=== PATIENT | female | born 1955 | race Caucasian/White ===

== ENCOUNTER → 2019-06-06 12:57 | Outpatient (BNVA) | payer MEDICARE, MEDICAID, SELFPAY | PROVIDERS: Family Provider Family Medicine; PCP Family Medicine; Visit Provider Family Medicine | DX: E78.00 Pure hypercholesterolemia, unspecified (principal); I10 Essential (primary) hypertension; E11.42 Type 2 diabetes mellitus with diabetic polyneuropathy | CPT/HCPCS: 80053; 80061; 83036; 85025 ==

== ENCOUNTER → 2019-12-19 11:59 | Outpatient (BNVA) | payer MEDICARE, MEDICAID, SELFPAY | PROVIDERS: Family Provider Family Medicine; PCP Family Medicine; Visit Provider Family Medicine | DX: E78.2 Mixed hyperlipidemia (principal); I10 Essential (primary) hypertension; E03.9 Hypothyroidism, unspecified; E11.42 Type 2 diabetes mellitus with diabetic polyneuropathy; E78.00 Pure hypercholesterolemia, unspecified; I48.19 Other persistent atrial fibrillation | CPT/HCPCS: 80053; 80061; 83036; 84443; 85025 ==

== ENCOUNTER → 2020-03-31 15:11 | Outpatient (BNVA) | payer MEDICARE, MEDICAID, SELFPAY | PROVIDERS: Family Provider Family Medicine; PCP Family Medicine; Visit Provider Family Medicine | DX: E11.42 Type 2 diabetes mellitus with diabetic polyneuropathy (principal); E78.00 Pure hypercholesterolemia, unspecified; I10 Essential (primary) hypertension | CPT/HCPCS: 80048; 80061; 83036 ==

== ENCOUNTER 2020-06-07 17:19 | Inpatient (IN) | payer MEDICARE, MEDICAID, SELFPAY ==
[2020-06-07] VITALS (9 sets, daily range): BP systolic 85–131; BP diastolic 52–69; PULSE 92–131; RESP 18–33; TEMP 37.3; O2SAT 91–97; BMI 32.3
--- NOTE | 2020-06-07 18:04 | CTR_ITS ---
PROCEDURE INFORMATION: Exam: CT Abdomen And Pelvis Without Contrast Exam date and time: 06/07/2020 7:00 PM Age: 65 years old Clinical indication: Prior surgery; Surgery date: 6+ months; Surgery type: Appy, gb, tubal; Patient HX: C/O diarrhea and weakness x 2 weeks; Additional info: Abd pain TECHNIQUE: Imaging protocol: Computed tomography of the abdomen and pelvis without contrast. Radiation optimization: All CT scans at this facility use at least one of these dose optimization techniques: automated exposure control; mA and/or kV adjustment per patient size (includes targeted exams where dose is matched to clinical indication); or iterative reconstruction. COMPARISON: No relevant prior studies available. RADIATION DOSE METRICS: Total DLP (mGy-cm): 1726.35 FINDINGS: Lungs: Patchy nonspecific opacities in a small portion of the visualized lingula. Patchy ground-glass opacities of the right lower lobe just above the right diaphragm. Few small noncalcified pulmonary nodules in the right middle lobe and the right lower lobe. Largest nodule 7 mm diameter in the posterior right lower lobe on axial series 2, image 5. Liver: Normal. No mass. Gallbladder and bile ducts: Cholecystectomy. Nondilated biliary system. Pancreas: Normal. No ductal dilation. Spleen: Normal. No splenomegaly. Adrenal glands: Unremarkable right adrenal gland. Left adrenal gland mass with low attenuation noted homogeneous sleep with simple Hounsfield units throughout the lesion measuring 3.5 cm x 3.1 cm. Kidneys and ureters: Mild severity diffuse bilateral renal cortical atrophy. Small exophytic simple right renal lower pole cyst. No hydronephrosis. No acute perinephric inflammation. No calcified renal stones. Stomach and bowel: No focal inflammatory wall thickening of bowel loops. No evidence of bowel obstruction or bowel perforation. Negative for bowel pneumatosis. Appendix: No evidence of appendicitis. Intraperitoneal space: Negative for pneumoperitoneum. Vasculature: Diffuse atherosclerosis. No abdominal aortic aneurysm. Lymph nodes: Unremarkable. No enlarged lymph nodes. Urinary bladder: Bladder decompressed and not well assessed by this exam. Reproductive: Unremarkable as visualized. Bones/joints: Bones are diffusely demineralized. No acute fractures are identified. No aggressive bone lesion. Moderate severity leftward convex lumbar spine scoliosis. Soft tissues: No abdominopelvic fluid collection. Soft tissues of the abdominal wall are unremarkable. Lumbar paraspinal muscles are unremarkable. CT/CT abdomen pelvis wo con [id number] IMPRESSION: 1. Negative for acute pathology in the abdomen or pelvis. 2. Incidental left adrenal gland mass. 3. No follow-up is necessary. 4. Several small pulmonary nodules. 5. Patchy ground-glass opacities of the right lower lobe above the diaphragm as well as parenchymal opacities of the lingula are nonspecific. Pneumonia not excluded. 6. For patients at low risk (minimal or absent history of smoking and of other known risk factors), recommend CT Chest at 3-6 months, then consider CT Chest at 18-24 months. For patients at high risk (history of smoking or of other known risk factors), recommend CT Chest at 3-6 months, then CT Chest at 18-24 months. (Reference: Debra) COMMENTS: 1. Consistent with the [employer]'s Incidental Findings Committee white paper (J Am Debora Radiol 2017): For any incidental adrenal lesion greater than 1 cm but less than 4 cm classified in this report as benign, likely benign, or containing fat (including classification as an adenoma or myelolipoma), no follow-up imaging is recommended per consensus recommendations based on imaging criteria. Further lab evaluation could be pursued if warranted based on clinical findings. 2. Consistent with the [employer]'s Incidental Findings Committee white paper (J Am Debora Radiol 2018): Any incidental renal lesion less than 1 cm or classified as too small to characterize, or any incidental cystic renal lesion characterized as simple-appearing, is likely benign. No follow-up imaging is recommended for these lesions per consensus recommendations based on imaging criteria. REFERENCES: Debra Murguia, et al. Guidelines for Management of Incidental Pulmonary Nodules Detected on CT Images: From the Fleischner Society 2017. Radiology. 2017;284(1):228-243. Radiation Dose CTDIVOL = (mGy): DLP = 1726.35 (mGy-cm)
--- NOTE | 2020-06-07 18:06 | W.ED.WEAKNES ---
Documented by User: Eros Oglesby DO 06/13/20 09:52 HPI - Weakness General: Chief complaint: Weakness Stated complaint: WEAKNESS, FEELING DEHYDRATED Time Seen by Provider: 06/07/20 17:37 History of Present Illness: HPI Narrative: 65-year-old female presents to the ER with complaints of diarrhea for the last 2 weeks. No nausea vomiting. She denies any fever occasionally she has had some blood in the stool when she wipes but no gross hematochezia. She has previously had a cholecystectomy and appendectomy several decades ago. She also had a tubal ligation. MD Complaint: generalized weakness Onset (ago): day(s) Duration: constant Location: generalized Relieving factors: none Exacerbating factors: none Associated symptoms: Denies chest pain, chills, confusion, melena, decreased appetite, diaphoresis, dysuria, easy bruising, fever(s), headache(s), myalgias, nausea, rash, short of breath, syncope or vomiting Review of Systems Const: Denies: fever(s), chills or diaphoresis ENMT: Denies: throat pain, ear or mastoid pain, nasal discharge or nasal congestion Card: Denies: chest pain or syncope Resp: Denies: dyspnea, productive cough or non-productive cough GI: Denies: nausea, vomiting or melena : Denies: dysuria Skin/Breast: Denies: rash or pruritus Neuro: Denies: headache(s) or confusion Maycol/Lymph: Denies: easy bruising PFSH ED PFSH: Medical History Atrial fibrillation CHF (congestive heart failure) Pt is wanting to wait for the Stress test till the VIrus is gone! Diabetes 1.5, managed as type 2 GERD (gastroesophageal reflux disease) Hypercholesteremia Hypertension Hypothyroid Mixed hyperlipidemia Type 2 diabetes mellitus with diabetic polyneuropathy Surgical History Hx laparoscopic cholecystectomy Hx of appendectomy Hx of cholecystectomy Hx of tubal ligation Family History Denies family history of Diabetes CAD (coronary artery disease) Clotting disorder Dementia Hyperlipidemia Psychiatric illness Chronic kidney disease (CKD) Suicide Anesthesia complication Bleeding disorder Family history of premature coronary artery disease Lung disease Cancer Hypertension Stroke Social History Smoking and tobacco status: current every day smoker cigarettes Alcohol intake: never Physical Exam Const: COMMON NORMALS: no acute distress GENERAL APPEARANCE: cooperative and comfortable ORIENTATION/CONSCIOUSNESS: Yes awake, Yes oriented to person, Yes oriented to place and Yes oriented to time HENMT: COMMON NORMALS: normocephalic, atraumatic and hearing grossly normal bilaterally HEAD & SCALP: normocephalic and atraumatic Neck/C-Spine: COMMON NORMALS: no JVD Resp: COMMON NORMALS: normal respiratory effort, No retractions, No use of accessory muscles and clear to auscultation bilaterally AUSCULTATION: clear to auscultation bilaterally Cardio: COMMON NORMALS: no JVD, regular rate, regular rhythm and No murmurs present (Cardio) RATE: regular rate RHYTHM: regular rhythm GI: COMMON NORMALS: Soft to palpation and No hepatosplenomegaly present AUSCULTATION: Yes normoactive bowel sounds PALPATION: Yes Soft to palpation, No Tenderness to palpation present (GI), No Guarding due to palpation present (GI) and Yes No hepatosplenomegaly present Extremity: COMMON NORMALS: normal to inspection, capillary refill normal, no clubbing, cyanosis or edema, no calf tenderness and no pedal edema Neuro: SENSORIUM/ORIENTATION: Yes oriented to person, Yes oriented to place and Yes oriented to time Skin: COMMON NORMALS: no rashes or lesions noted GENERAL SKIN EXAM: no rashes or lesions noted Course Vital Signs: Vital signs: Vital Signs Temperature 97.8 F 06/11/20 15:39 Pulse Rate 90 06/11/20 15:39 Respiratory Rate 32 H 06/11/20 15:39 Blood Pressure 100/78 06/11/20 21:51 Pulse Oximetry 95 06/11/20 21:51 MDM - Weakness MDM Narrative: Medical decision making narrative: Care turned over to Dr. Hough at change of shift see his notes for final diagnosis and disposition Lab Data: Labs: Lab Results 06/07/20 06/07/20 06/07/20 Range/Units 18:13 18:24 18:24 WBC 7.2 (4.0-10.0) 10^3/ uL RBC 5.00 (4.1-5.3) 10^6/u L Hgb 15.2 (11.5-15.3) g/dL Hct 47.6 H (37.0-47.0) % MCV 95.2 (81-99) fL MCH 30.4 (28.0-34.0) pg MCHC 31.9 (30.0-36.0) g/dL RDW 13.2 (12.1-15.1) % Plt Count 244 (130-400) 10^3/c mm MPV 9.8 (7.4-10.4) fL Neut % (Auto) 69.7 % Lymph % (Auto) 21.5 % [place] % (Auto) 8.6 % Eos % (Auto) 0.0 % Baso % (Auto) 0.1 % Neut # (Auto) 5.02 (1.8-7.7) 10^3/u L Lymph # (Auto) 1.6 (0.8-4.8) 10^3/u L [place] # (Auto) 0.6 (0.2-0.9) 10^3/u L Eos # (Auto) 0.0 (0.0-0.8) 10^3/u L Baso # (Auto) 0.0 (0.0-0.1) 10^3/u L Nucleated RBC % (a uto) 0 % Nucleated RBCs # 0.0 /100WBC Sodium (136-145) mmol/L Potassium (3.5-5.1) mmol/L Chloride (98-107) mmol/L Carbon Dioxide (22-29) mmol/L Anion Gap (5-19) BUN (8-23) mg/dL Creatinine (0.5-0.9) mg/dL GFR Calculation (90-130) mL/min Glucose (65-115) mg/dL Calculated Osmolal ity (285-295) mOsm/k g Lactic Acid 1.8 (0.5-2.2) mmol/L Calcium (8.5-10.5) mg/dL Magnesium (1.7-2.3) mg/dL Total Bilirubin (0.15-1.2) mg/dL AST (0-32) U/L ALT (0-33) U/L Alkaline Phosphata se (35-105) IU/L Creatine Kinase (26-192) U/L Total Protein (6.6-8.7) g/dL Albumin (3.5-5.2) g/dL Globulin (1.3-4.6) g/dL Lipase (13-60) U/L Procalcitonin (0-0.5) ng/mL TSH (0.27-4.20) uIU/ mL Urine Color Yellow (Yellow) Urine Appearance Clear (CLEAR) Urine pH 5 (5-7) Ur Specific Gravit y 1.010 (1.005-1.030) Urine Protein Neg (Negative) Urine Glucose (UA) Norm (Normal) Urine Ketones Negative (Negative) Urine Blood 2+ H (Negative) Urine Nitrate Negative (Negative) Urine Bilirubin Neg (Negative) Urine Urobilinogen Norm (Negative) mg/dL Ur Leukocyte [place] ase Trace H (Negative) Urine RBC 0-4 H (0-2) /hpf Urine WBC 0-4 H (0-5) /hpf Ur Squamous Epith Cells 0-4 H (0-5) /hpf Amorphous Sediment Not Reportable Urine Bacteria Trace (NONE) /hpf Hyaline Casts 0-4 H /lpf SARS-CoV-2 Ag (Rap id) (Negative) 06/07/20 06/07/20 06/07/20 Range/Units 18:24 18:26 18:34 WBC (4.0-10.0) 10^3/ uL RBC (4.1-5.3) 10^6/u L Hgb (11.5-15.3) g/dL Hct (37.0-47.0) % MCV (81-99) fL MCH (28.0-34.0) pg MCHC (30.0-36.0) g/dL RDW (12.1-15.1) % Plt Count (130-400) 10^3/c mm MPV (7.4-10.4) fL Neut % (Auto) % Lymph % (Auto) % [place] % (Auto) % Eos % (Auto) % Baso % (Auto) % Neut # (Auto) (1.8-7.7) 10^3/u L Lymph # (Auto) (0.8-4.8) 10^3/u L [place] # (Auto) (0.2-0.9) 10^3/u L Eos # (Auto) (0.0-0.8) 10^3/u L Baso # (Auto) (0.0-0.1) 10^3/u L Nucleated RBC % (a uto) % Nucleated RBCs # /100WBC Sodium 131 L (136-145) mmol/L Potassium 3.1 L (3.5-5.1) mmol/L Chloride 93 L (98-107) mmol/L Carbon Dioxide 25 (22-29) mmol/L Anion Gap 16.1 (5-19) BUN 22 (8-23) mg/dL Creatinine 1.9 H (0.5-0.9) mg/dL GFR Calculation 26.4 L (90-130) mL/min Glucose 97 (65-115) mg/dL Calculated Osmolal ity 275 L (285-295) mOsm/k g Lactic Acid (0.5-2.2) mmol/L Calcium 8.7 (8.5-10.5) mg/dL Magnesium 1.6 L 1.7 (1.7-2.3) mg/dL Total Bilirubin 0.5 (0.15-1.2) mg/dL AST 25 (0-32) U/L ALT 11 (0-33) U/L Alkaline Phosphata se 72 (35-105) IU/L Creatine Kinase 177 (26-192) U/L Total Protein 7.3 (6.6-8.7) g/dL Albumin 4.0 (3.5-5.2) g/dL Globulin 3.3 (1.3-4.6) g/dL Lipase 73 H (13-60) U/L Procalcitonin 0.17 (0-0.5) ng/mL TSH 2.22 2.26 (0.27-4.20) uIU/ mL Urine Color (Yellow) Urine Appearance (CLEAR) Urine pH (5-7) Ur Specific Gravit y (1.005-1.030) Urine Protein (Negative) Urine Glucose (UA) (Normal) Urine Ketones (Negative) Urine Blood (Negative) Urine Nitrate (Negative) Urine Bilirubin (Negative) Urine Urobilinogen (Negative) mg/dL Ur Leukocyte [place] ase (Negative) Urine RBC (0-2) /hpf Urine WBC (0-5) /hpf Ur Squamous Epith Cells (0-5) /hpf Amorphous Sediment Urine Bacteria (NONE) /hpf Hyaline Casts /lpf SARS-CoV-2 Ag (Rap id) (Negative) 06/07/20 Range/Units 20:35 WBC (4.0-10.0) 10^3/ uL RBC (4.1-5.3) 10^6/u L Hgb (11.5-15.3) g/dL Hct (37.0-47.0) % MCV (81-99) fL MCH (28.0-34.0) pg MCHC (30.0-36.0) g/dL RDW (12.1-15.1) % Plt Count (130-400) 10^3/c mm MPV (7.4-10.4) fL Neut % (Auto) % Lymph % (Auto) % [place] % (Auto) % Eos % (Auto) % Baso % (Auto) % Neut # (Auto) (1.8-7.7) 10^3/u L Lymph # (Auto) (0.8-4.8) 10^3/u L [place] # (Auto) (0.2-0.9) 10^3/u L Eos # (Auto) (0.0-0.8) 10^3/u L Baso # (Auto) (0.0-0.1) 10^3/u L Nucleated RBC % (a uto) % Nucleated RBCs # /100WBC Sodium (136-145) mmol/L Potassium (3.5-5.1) mmol/L Chloride (98-107) mmol/L Carbon Dioxide (22-29) mmol/L Anion Gap (5-19) BUN (8-23) mg/dL Creatinine (0.5-0.9) mg/dL GFR Calculation (90-130) mL/min Glucose (65-115) mg/dL Calculated Osmolal ity (285-295) mOsm/k g Lactic Acid (0.5-2.2) mmol/L Calcium (8.5-10.5) mg/dL Magnesium (1.7-2.3) mg/dL Total Bilirubin (0.15-1.2) mg/dL AST (0-32) U/L ALT (0-33) U/L Alkaline Phosphata se (35-105) IU/L Creatine Kinase (26-192) U/L Total Protein (6.6-8.7) g/dL Albumin (3.5-5.2) g/dL Globulin (1.3-4.6) g/dL Lipase (13-60) U/L Procalcitonin (0-0.5) ng/mL TSH (0.27-4.20) uIU/ mL Urine Color (Yellow) Urine Appearance (CLEAR) Urine pH (5-7) Ur Specific Gravit y (1.005-1.030) Urine Protein (Negative) Urine Glucose (UA) (Normal) Urine Ketones (Negative) Urine Blood (Negative) Urine Nitrate (Negative) Urine Bilirubin (Negative) Urine Urobilinogen (Negative) mg/dL Ur Leukocyte [place] ase (Negative) Urine RBC (0-2) /hpf Urine WBC (0-5) /hpf Ur Squamous Epith Cells (0-5) /hpf Amorphous Sediment Urine Bacteria (NONE) /hpf Hyaline Casts /lpf SARS-CoV-2 Ag (Rap id) Positive H (Negative) Discharge Plan Discharge Patient Disposition: Admitted As Inpatient Admit Provider: Baldemar Field Clinical Impression: Atrial fibrillation Respiratory failure with hypoxia Qualifiers: Chronicity: acute Qualified Code(s): J96.01 - Acute respiratory failure with hypoxia Condition: Stable Discharge Diet: Advance as tolerated Discharge Activity: Increase activity as tolerated Coding Level of Care Code ED Oil Lease Operator for Chg Fwd Documented by User: Thomas Hough DO 06/08/20 02:08 HPI - Weakness General: Chief complaint: Weakness Stated complaint: WEAKNESS, FEELING DEHYDRATED Time Seen by Provider: 06/07/20 17:37 PFSH ED PFSH: Medical History Atrial fibrillation CHF (congestive heart failure) Pt is wanting to wait for the Stress test till the VIrus is gone! Diabetes 1.5, managed as type 2 GERD (gastroesophageal reflux disease) Hypercholesteremia Hypertension Hypothyroid Mixed hyperlipidemia Type 2 diabetes mellitus with diabetic polyneuropathy Surgical History Hx laparoscopic cholecystectomy Hx of appendectomy Hx of cholecystectomy Hx of tubal ligation Family History Denies family history of Diabetes CAD (coronary artery disease) Clotting disorder Dementia Hyperlipidemia Psychiatric illness Chronic kidney disease (CKD) Suicide Anesthesia complication Bleeding disorder Family history of premature coronary artery disease Lung disease Cancer Hypertension Stroke Social History Smoking and tobacco status: current every day smoker cigarettes Alcohol intake: never Course Consultations: Consultation #1: [email or web address] Vital Signs: Vital signs: Vital Signs Temperature 97.8 F 06/11/20 15:39 Pulse Rate 90 06/11/20 15:39 Respiratory Rate 32 H 06/11/20 15:39 Blood Pressure 100/78 06/11/20 21:51 Pulse Oximetry 95 06/11/20 21:51 MDM - Weakness MDM Narrative: Medical decision making narrative: 65-year-old female with a history of atrial fibrillation. She presents after several days of vomiting and diarrhea with fevers. She did not complain of shortness of breath, but she is hypoxic here and placed on a couple of liters. Her heart rate had initially been around 100, but was getting up, she desaturates and the heart rate comes up in the 130s. She is on metoprolol for rate control. She is given 2.5 mg of metoprolol, some fluid, and oxygen supplementation. CT does not show anything in the belly, but does show bilateral groundglass infiltrates, suspicious for Covid in terms of her symptoms. She will he is tested here, and rapid is pending. She will be admitted. Lab Data: Labs: Lab Results 06/07/20 06/07/20 06/07/20 Range/Units 18:13 18:24 18:24 WBC 7.2 (4.0-10.0) 10^3/ uL RBC 5.00 (4.1-5.3) 10^6/u L Hgb 15.2 (11.5-15.3) g/dL Hct 47.6 H (37.0-47.0) % MCV 95.2 (81-99) fL MCH 30.4 (28.0-34.0) pg MCHC 31.9 (30.0-36.0) g/dL RDW 13.2 (12.1-15.1) % Plt Count 244 (130-400) 10^3/c mm MPV 9.8 (7.4-10.4) fL Neut % (Auto) 69.7 % Lymph % (Auto) 21.5 % [place] % (Auto) 8.6 % Eos % (Auto) 0.0 % Baso % (Auto) 0.1 % Neut # (Auto) 5.02 (1.8-7.7) 10^3/u L Lymph # (Auto) 1.6 (0.8-4.8) 10^3/u L [place] # (Auto) 0.6 (0.2-0.9) 10^3/u L Eos # (Auto) 0.0 (0.0-0.8) 10^3/u L Baso # (Auto) 0.0 (0.0-0.1) 10^3/u L Nucleated RBC % (a uto) 0 % Nucleated RBCs # 0.0 /100WBC Sodium (136-145) mmol/L Potassium (3.5-5.1) mmol/L Chloride (98-107) mmol/L Carbon Dioxide (22-29) mmol/L Anion Gap (5-19) BUN (8-23) mg/dL Creatinine (0.5-0.9) mg/dL GFR Calculation (90-130) mL/min Glucose (65-115) mg/dL Calculated Osmolal ity (285-295) mOsm/k g Lactic Acid 1.8 (0.5-2.2) mmol/L Calcium (8.5-10.5) mg/dL Magnesium (1.7-2.3) mg/dL Total Bilirubin (0.15-1.2) mg/dL AST (0-32) U/L ALT (0-33) U/L Alkaline Phosphata se (35-105) IU/L Creatine Kinase (26-192) U/L Total Protein (6.6-8.7) g/dL Albumin (3.5-5.2) g/dL Globulin (1.3-4.6) g/dL Lipase (13-60) U/L Procalcitonin (0-0.5) ng/mL TSH (0.27-4.20) uIU/ mL Urine Color Yellow (Yellow) Urine Appearance Clear (CLEAR) Urine pH 5 (5-7) Ur Specific Gravit y 1.010 (1.005-1.030) Urine Protein Neg (Negative) Urine Glucose (UA) Norm (Normal) Urine Ketones Negative (Negative) Urine Blood 2+ H (Negative) Urine Nitrate Negative (Negative) Urine Bilirubin Neg (Negative) Urine Urobilinogen Norm (Negative) mg/dL Ur Leukocyte [place] ase Trace H (Negative) Urine RBC 0-4 H (0-2) /hpf Urine WBC 0-4 H (0-5) /hpf Ur Squamous Epith Cells 0-4 H (0-5) /hpf Amorphous Sediment Not Reportable Urine Bacteria Trace (NONE) /hpf Hyaline Casts 0-4 H /lpf SARS-CoV-2 Ag (Rap id) (Negative) 06/07/20 06/07/20 06/07/20 Range/Units 18:24 18:26 18:34 WBC (4.0-10.0) 10^3/ uL RBC (4.1-5.3) 10^6/u L Hgb (11.5-15.3) g/dL Hct (37.0-47.0) % MCV (81-99) fL MCH (28.0-34.0) pg MCHC (30.0-36.0) g/dL RDW (12.1-15.1) % Plt Count (130-400) 10^3/c mm MPV (7.4-10.4) fL Neut % (Auto) % Lymph % (Auto) % [place] % (Auto) % Eos % (Auto) % Baso % (Auto) % Neut # (Auto) (1.8-7.7) 10^3/u L Lymph # (Auto) (0.8-4.8) 10^3/u L [place] # (Auto) (0.2-0.9) 10^3/u L Eos # (Auto) (0.0-0.8) 10^3/u L Baso # (Auto) (0.0-0.1) 10^3/u L Nucleated RBC % (a uto) % Nucleated RBCs # /100WBC Sodium 131 L (136-145) mmol/L Potassium 3.1 L (3.5-5.1) mmol/L Chloride 93 L (98-107) mmol/L Carbon Dioxide 25 (22-29) mmol/L Anion Gap 16.1 (5-19) BUN 22 (8-23) mg/dL Creatinine 1.9 H (0.5-0.9) mg/dL GFR Calculation 26.4 L (90-130) mL/min Glucose 97 (65-115) mg/dL Calculated Osmolal ity 275 L (285-295) mOsm/k g Lactic Acid (0.5-2.2) mmol/L Calcium 8.7 (8.5-10.5) mg/dL Magnesium 1.6 L 1.7 (1.7-2.3) mg/dL Total Bilirubin 0.5 (0.15-1.2) mg/dL AST 25 (0-32) U/L ALT 11 (0-33) U/L Alkaline Phosphata se 72 (35-105) IU/L Creatine Kinase 177 (26-192) U/L Total Protein 7.3 (6.6-8.7) g/dL Albumin 4.0 (3.5-5.2) g/dL Globulin 3.3 (1.3-4.6) g/dL Lipase 73 H (13-60) U/L Procalcitonin 0.17 (0-0.5) ng/mL TSH 2.22 2.26 (0.27-4.20) uIU/ mL Urine Color (Yellow) Urine Appearance (CLEAR) Urine pH (5-7) Ur Specific Gravit y (1.005-1.030) Urine Protein (Negative) Urine Glucose (UA) (Normal) Urine Ketones (Negative) Urine Blood (Negative) Urine Nitrate (Negative) Urine Bilirubin (Negative) Urine Urobilinogen (Negative) mg/dL Ur Leukocyte [place] ase (Negative) Urine RBC (0-2) /hpf Urine WBC (0-5) /hpf Ur Squamous Epith Cells (0-5) /hpf Amorphous Sediment Urine Bacteria (NONE) /hpf Hyaline Casts /lpf SARS-CoV-2 Ag (Rap id) (Negative) 06/07/20 Range/Units 20:35 WBC (4.0-10.0) 10^3/ uL RBC (4.1-5.3) 10^6/u L Hgb (11.5-15.3) g/dL Hct (37.0-47.0) % MCV (81-99) fL MCH (28.0-34.0) pg MCHC (30.0-36.0) g/dL RDW (12.1-15.1) % Plt Count (130-400) 10^3/c mm MPV (7.4-10.4) fL Neut % (Auto) % Lymph % (Auto) % [place] % (Auto) % Eos % (Auto) % Baso % (Auto) % Neut # (Auto) (1.8-7.7) 10^3/u L Lymph # (Auto) (0.8-4.8) 10^3/u L [place] # (Auto) (0.2-0.9) 10^3/u L Eos # (Auto) (0.0-0.8) 10^3/u L Baso # (Auto) (0.0-0.1) 10^3/u L Nucleated RBC % (a uto) % Nucleated RBCs # /100WBC Sodium (136-145) mmol/L Potassium (3.5-5.1) mmol/L Chloride (98-107) mmol/L Carbon Dioxide (22-29) mmol/L Anion Gap (5-19) BUN (8-23) mg/dL Creatinine (0.5-0.9) mg/dL GFR Calculation (90-130) mL/min Glucose (65-115) mg/dL Calculated Osmolal ity (285-295) mOsm/k g Lactic Acid (0.5-2.2) mmol/L Calcium (8.5-10.5) mg/dL Magnesium (1.7-2.3) mg/dL Total Bilirubin (0.15-1.2) mg/dL AST (0-32) U/L ALT (0-33) U/L Alkaline Phosphata se (35-105) IU/L Creatine Kinase (26-192) U/L Total Protein (6.6-8.7) g/dL Albumin (3.5-5.2) g/dL Globulin (1.3-4.6) g/dL Lipase (13-60) U/L Procalcitonin (0-0.5) ng/mL TSH (0.27-4.20) uIU/ mL Urine Color (Yellow) Urine Appearance (CLEAR) Urine pH (5-7) Ur Specific Gravit y (1.005-1.030) Urine Protein (Negative) Urine Glucose (UA) (Normal) Urine Ketones (Negative) Urine Blood (Negative) Urine Nitrate (Negative) Urine Bilirubin (Negative) Urine Urobilinogen (Negative) mg/dL Ur Leukocyte [place] ase (Negative) Urine RBC (0-2) /hpf Urine WBC (0-5) /hpf Ur Squamous Epith Cells (0-5) /hpf Amorphous Sediment Urine Bacteria (NONE) /hpf Hyaline Casts /lpf SARS-CoV-2 Ag (Rap id) Positive H (Negative) Discharge Plan Discharge Patient Disposition: Admitted As Inpatient Admit Provider: Baldemar Field Clinical Impression: Atrial fibrillation Respiratory failure with hypoxia Qualifiers: Chronicity: acute Qualified Code(s): J96.01 - Acute respiratory failure with hypoxia Condition: Stable Discharge Diet: Advance as tolerated Discharge Activity: Increase activity as tolerated Coding Level of Care Code ED Oil Lease Operator for Irving Rosario
[2020-06-07 18:31] LABS: Basophils % 0.1 %; Hematocrit 47.6 % (37.0-47.0); Hemoglobin 15.2 g/dL (11.5-15.3); Lymphocytes # 1.6 10^3/uL (0.8-4.8); Lymphocytes % 21.5 %; Mean Corpuscular HGB Conc 31.9 g/dL (30.0-36.0); Mean Corpuscular Hemoglobin 30.4 pg (28.0-34.0); Mean Corpuscular Volume 95.2 fL (81-99); Mean Platelet Volume 9.8 fL (7.4-10.4); Monocytes # 0.6 10^3/uL (0.2-0.9); Monocytes % 8.6 %; Neutrophils # 5.02 10^3/uL (1.8-7.7); Neutrophils % 69.7 %; Nucleated Red Blood Cells % 0 %; Platelet Count 244 10^3/cmm (130-400); Red Cell Distribution Width 13.2 % (12.1-15.1); White Blood Count 7.2 10^3/uL (4.0-10.0)
[2020-06-07] MEDS: ondansetron 2 mg/ML SDV 2 mL 4 MG IVP (18:46)
[2020-06-07] MEDS: sodium chloride 0.9% 1,000 ML 999 ML IV (18:46)
[2020-06-07 18:54] LABS: Alanine Aminotransferase 11 U/L (0-33); Alkaline Phosphatase 72 IU/L (35-105); Anion Gap 16.1 (5-19); Aspartate Amino Transferase 25 U/L (0-32); Blood Urea Nitrogen 22 mg/dL (8-23); Calcium 8.7 mg/dL (8.5-10.5); Carbon Dioxide 25 mmol/L (22-29); Chloride 93 mmol/L (98-107); Creatine Phosphokinase 177 U/L (26-192); Globulin 3.3 g/dL (1.3-4.6); Glomerular Filtration Rate 26.4 mL/min (90-130); Glucose 97 mg/dL (65-115); Lactic Sepsis W/Reflex 1.8 mmol/L (0.5-2.2); Lipase 73 U/L (13-60); Magnesium 1.6 mg/dL (1.7-2.3); Osmolality Calculated 275 mOsm/kg (285-295); Potassium 3.1 mmol/L (3.5-5.1); Sodium 131 mmol/L (136-145); Total Bilirubin 0.5 mg/dL (0.15-1.2); Total Protein 7.3 g/dL (6.6-8.7)
[2020-06-07 19:31] LABS: Bilirubin Urine Neg (Negative); Glucose Urine UA Norm (Normal); Ketones Urine Negative (Negative); Nitrate Urine Negative (Negative); Protein Urine Neg (Negative); Urine Appearance Clear (CLEAR); Urine Color Yellow (Yellow); Urobilinogen Urine Norm (Negative); pH Urine 5 (5-7)
[2020-06-07 19:32] LABS: Add Urine Culture? No; Add Urine Microscopic? YES; Bacteria Urine TRACE /hpf; Blood Urine 2+ (Negative); Hyaline Casts Urine 0-4 /lpf; Leukocyte Esterase Urine Trace (Negative); RBC Urine 0-4 /hpf (0-2); Squamous Epithelial Cell Urine 0-4 /hpf (0-5); WBC Urine 0-4 /hpf (0-5)
[2020-06-07] MEDS: potassium chloride oral liq 20 mEq/15 mL UDC 40 MEQ PO (19:36)
[2020-06-07] MEDS: sodium chlor 0.9% + KCl 20 mEq 20 MEQ/1,000 ML BAG 250 MEQ IV (19:37)
--- NOTE | 2020-06-07 20:45 | ECG_ITS ---
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 Measurements Intervals Christopher Rate: 124 P: VA: QRS: 87 QRSD: 90 T: -32 QT: 288 QTc: 414 Interpretive Statements ATRIAL FIBRILLATION WITH RAPID VENTRICULAR RESPONSE NONSPECIFIC ST & T-WAVE ABNORMALITY Compared to ECG 04/27/2015 05:36:14 T-wave abnormality now present Electronically Signed On 06-08-2020 17:02:11 OIL DISPATCHER by Khris Armas M.D. [email or web address]
--- NOTE | 2020-06-07 20:52 | PM.HP ---
Providers/Chief Complaint Primary Care Provider: Anna Kaufman MD Chief Complaint: WEAKNESS, FEELING DEHYDRATED History of Present Illness Mavis Joseph is a 65 year old female who has history of atrial fibrillation chronic anticoagulation with rivaroxaban, presented today with chief complaint of worsening diarrhea. Patient is stating that her symptoms started about 2 weeks ago with abdominal pain and diarrhea, she did not denies any emesis or nausea but her diarrhea has been getting worse today because of worsening and extreme lethargy she decided to come to the hospital for further evaluation. On arrival she was mildly hypoxic around 90, she was started on 2 L nasal cannula, heart rate 132 A. fib RVR, abdomen pelvis CT scan unremarkable, groundglass opacities seen, Covid antigen positive, hypokalemia and hypomagnesemia noted. Potassium was repleted in the ER. Patient is denying chest pain, orthopnea, PND, fever. Her only complaint was abdominal pain for which she decided to come to the hospital. No one else is sick at home. She is a former smoker. She is compliant with her medications. At the time my evaluation she was saturating well on 2 L without any active chest pain. Review of Systems Const: Reports: chills, body aches, fatigue and malaise; Denies: fever(s) Eyes: Denies: change in vision ENMT: Denies: throat pain Card: Denies: chest pain Resp: Reports: dyspnea GI: Reports: abdominal pain and diarrhea; Denies: nausea : Denies: flank pain Musc: Denies: neck pain Skin/Breast: Denies: rash Neuro: Denies: headache(s) Psych: Denies: anxiety Endo: Denies: polyuria Maycol/Lymph: Denies: easy bruising All/Imm: Denies: urticaria Medications/Allergies Home Medications Medication Instructions Recorded Confirmed Last Taken Type Diabetic Shoes #1 each 05/29/19 06/07/20 Unknown Rx potassium chloride 20 mEq 20 meq PO BID@0800,199905/29/19 06/07/20 06/07/20 History tablet,extended release metoprolol tartrate 50 mg tablet 25 mg PO BID@0800,1999 tab 01/01/20 06/07/20 06/07/20 History furosemide 60 mg PO BID@0800,199906/07/20 06/07/20 06/07/20 History levothyroxine 50 mcg PO DAILY@0800 06/07/20 06/07/20 06/07/20 History lisinopril 5 mg PO DAILY@0800 06/07/20 06/07/20 06/07/20 History metformin 500 mg PO BID@0800,199906/07/20 06/07/20 06/07/20 History rivaroxaban 20 mg PO DAILY@0800 06/07/20 06/07/20 06/07/20 History Allergies Allergy/AdvReac Type Severity Reaction Status Date / Time aspirin Allergy nausea Verified 04/08/20 09:40 influenza A (H1N1) virus Allergy unknown Verified 04/08/20 09:40 vaccine [id number] 2008 [From influenza A (H1N1)] PFSH Acute PFSH: Medical History (Updated 06/07/20 @ 23:25 by Baldemar Field MD) Atrial fibrillation CHF (congestive heart failure) Pt is wanting to wait for the Stress test till the VIrus is gone! Diabetes 1.5, managed as type 2 GERD (gastroesophageal reflux disease) Hypercholesteremia Hypertension Hypothyroid Mixed hyperlipidemia Type 2 diabetes mellitus with diabetic polyneuropathy Surgical History Hx laparoscopic cholecystectomy Hx of appendectomy Hx of cholecystectomy Hx of tubal ligation Family History Denies family history of Diabetes CAD (coronary artery disease) Clotting disorder Dementia Hyperlipidemia Psychiatric illness Chronic kidney disease (CKD) Suicide Anesthesia complication Bleeding disorder Family history of premature coronary artery disease Lung disease Cancer Hypertension Stroke Social History Smoking and tobacco status: current every day smoker cigarettes Alcohol intake: never Vitals/I&O/Wt Last Vital Signs Temp 99.1 F 06/07/20 17:27 Pulse 129 H 06/07/20 20:35 Resp 33 H 06/07/20 20:35 BP 100/60 06/07/20 20:35 Pulse Ox 97 06/07/20 20:35 Weight last 48 hrs Weight 90.718 kg Physical Exam Narrative: EXAM NARRATIVE: Middle-age female currently saturating well on 2 L nasal cannula, appears stated age No active signs of dehydration or fluid overload No active chest pain S1, S2 variable no murmur appreciated no signs of heart failure Abdomen soft nontender bowel sound present Lower symmetry no edema gangrene ulcer Bilateral breath sounds without adventitious rhonchi or crackles Appropriate mood and affect EOMI, PERRLA No neurological deficit Data : 06/07/20 18:24 06/07/20 18:24 A&P Assessment and plan (1) Respiratory failure with hypoxia: Acute hypoxic respiratory failure secondary to COVID-19 pneumonia Request D-dimer, inflammatory markers Currently doing well on 2 L nasal cannula Start remdesivir and Decadron, clinical trial has not supported use of vitamin C zinc or vitamin D, would not initiate multivitamins at this point DuoNebs every 4 Home O2 evaluation before discharge Requested procalcitonin level Status: Acute Qualifiers: Chronicity: acute Qualified Code(s): J96.01 - Acute respiratory failure with hypoxia (2) COVID-19 determined by clinical diagnostic criteria: Management as mentioned above Status: Acute (3) Hypokalemia: Potassium repleted Status: Acute (4) Hypomagnesemia: Magnesium repleted Status: Acute (5) Paroxysmal A-fib: Paroxysmal A. fib, Would use Cardizem for blood pressure allows, continue rivaroxaban This most likely secondary to COVID-19 pneumonia which triggered A. fib with acute RVR no active chest pain or severe shortness of breath Check TSH, magnesium and potassium abnormality noted Status: Acute Additional A&P Information Cardiac diet DVT prophylaxis not indicated currently on Lovenox again Full code Attestations Medical Necessity Statement*: Anticipating stay in the hospital cross more than 2 midnights for acute hypoxia for COVID-19 A. fib with acute RVR Time Spent in Patient Care: (>than 50% of time spent in counselling and/or direct pt care on unit). 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
[2020-06-07] MEDS: metoprolol tartrate 1 mg/1 mL SDV 5 mL 2.5 MG IV (20:55)
[2020-06-07] MEDS: potassium chloride ER 20 mEq Tablet 40 MEQ PO (21:05)
[2020-06-07 21:15] LABS: SARS Covid-2 Antigen Positive (Negative)
[2020-06-07 21:24] LABS: Magnesium 1.7 mg/dL (1.7-2.3); Thyroid Stimulating Hormone 2.22 uIU/mL (0.27-4.20)
--- NOTE | 2020-06-07 23:14 | PC.NURSE ---
Report called to Lindsey CALDWELL on CSU unit
[2020-06-07 23:53] LABS: Glucose Point of Care 113 mg/dL (70-110)
[2020-06-08] VITALS (29 sets, daily range): BP systolic 76–144; BP diastolic 49–106; PULSE 66–120; RESP 14–28; TEMP 36.2–38.7; O2SAT 83–96
[2020-06-08 00:40] LABS: Procalcitonin 0.17 ng/mL (0-0.5); Thyroid Stimulating Hormone 2.26 uIU/mL (0.27-4.20)
[2020-06-08] MEDS: remdesivir 200 MG in sodium chloride 0.9% (100 ml) 100 ML 100 MG IV (00:56)
[2020-06-08] MEDS: sodium chloride 0.9% 250 ML IV (00:56)
--- NOTE | 2020-06-08 02:06 | PC.NURSE ---
Remdesivir complete. Flushed IV line with 30ml of normal saline.
[2020-06-08 05:22] LABS: D Dimer 1.96 ug/mIFEU (0-0.59)
[2020-06-08 05:33] LABS: Lactate Dehydrogenase 239 U/L (135-214)
[2020-06-08 06:41] LABS: Glucose Point of Care 103 mg/dL (70-110)
[2020-06-08] MEDS: rivaroxaban 10 mg Tablet 20 MG PO (07:59)
[2020-06-08] MEDS: potassium chloride ER 20 mEq Tablet PO ×2 (07:59→20:09)
[2020-06-08] MEDS: levothyroxine 50 mcg Tablet PO (07:59)
[2020-06-08] MEDS: metoprolol tartrate 50 mg Tablet 25 MG PO ×2 (07:59→20:09)
[2020-06-08] MEDS: dexamethasone 4 mg Tablet 6 MG PO (09:04)
[2020-06-08] MEDS: cholecalciferol (vitamin D3) 5,000 unit Tablet 5000 UNIT PO (09:04)
[2020-06-08] MEDS: zinc gluconate 50 mg Tablet PO (09:04)
[2020-06-08] MEDS: ascorbic acid 500 mg Tablet 1000 MG PO ×2 (09:05→18:09)
[2020-06-08] MEDS: cefTRIAXone 1,000 MG in sodium chloride 0.9% (plus) 50 ML 100 MG IV (09:05)
[2020-06-08] MEDS: sodium chlor 0.45% +KCl 20 mEq 20 MEQ/1,000 ML BAG 100 MEQ IV (09:08)
[2020-06-08 09:13] LABS: Blood Urea Nitrogen 23 mg/dL (8-23); C Reactive Protein 52.3 mg/L (0.0-4.9); Calcium 7.7 mg/dL (8.5-10.5); Carbon Dioxide 20 mmol/L (22-29); Chloride 102 mmol/L (98-107); Glomerular Filtration Rate 28.1 mL/min (90-130); Glucose 89 mg/dL (65-115); Osmolality Calculated 279 mOsm/kg (285-295); Sodium 133 mmol/L (136-145)
[2020-06-08] MEDS: lactated ringers 500 ML 999 ML IV (09:47)
[2020-06-08] MEDS: azithromycin 500 MG in sodium chloride 0.9% 250 ML 250 MG IV (10:37)
[2020-06-08 11:27] LABS: Glucose Point of Care 123 mg/dL (70-110)
--- NOTE | 2020-06-08 12:12 | P.PN_ITS ---
Subjective Subjective: Interval history: This morning patient was examined, she tells me that she feels a bit better, she is on 2 L, minimal shortness of breath, her blood pressures are a bit on the lower end, continues to have diarrhea Vitals/I&O/Wt Last Vital Signs Temp 98.3 F 06/08/20 11:23 Pulse 90 06/08/20 11:23 Resp 20 H 06/08/20 11:23 BP 125/106 06/08/20 11:23 Pulse Ox 90 06/08/20 11:23 06/07/20 06/08/20 06/08/20 22:59 06:59 14:59 Intake Total 1000 / 1000 1402 / 2402 913.333 / 913.333 Balance 1000 / 1000 1402 / 2402 913.333 / 913.333 Weight last 48 hrs Weight 90.718 kg Physical Exam Const: COMMON NORMALS: no acute distress and patient oriented x3 HENMT: COMMON NORMALS: normocephalic HEAD & SCALP: normocephalic Neck/C-Spine: COMMON NORMALS: no JVD Resp: COMMON NORMALS: normal respiratory effort, No retractions, No use of accessory muscles and clear to auscultation bilaterally AUSCULTATION: clear to auscultation bilaterally Cardio: COMMON NORMALS: no JVD, regular rate, regular rhythm, S1 normal heart sound present and S2 normal heart sound present RATE: regular rate RHYTHM: regular rhythm HEART SOUNDS: S1 normal heart sound present and S2 normal heart sound present GI: COMMON NORMALS: Normal to inspection, nondistended, normoactive bowel sounds present, Soft to palpation, non-tender, No hepatosplenomegaly present, no masses and no bruits PALPATION: Yes Soft to palpation and Yes No hepatosplenomegaly present Extremity: COMMON NORMALS: capillary refill normal, no clubbing, cyanosis or edema, no calf tenderness and no pedal edema Neuro: COMMON NORMALS: patient oriented x3 Psych: COMMON NORMALS: mental status grossly normal Data : 06/07/20 18:24 06/08/20 03:37 Micro: Microbiology 06/08/20 08:58 Blood Culture - Preliminary Blood SPECIMEN COLLECTED 06/08/20 08:58 Blood Culture - Preliminary Blood SPECIMEN COLLECTED A&P Assessment and plan (1) Respiratory failure with hypoxia: Acute hypoxic respiratory failure secondary to COVID-19 pneumonia D-dimer 1.96, patient compliant with her Xarelto therapy, hold off on CT angiogram of the chest Currently doing well on 2 L nasal cannula Continue remdesivir and Decadron Monitor QTC, telemetry monitoring Rocephin and azithromycin for secondary bacterial pneumonia treatment Vitamin C, zinc, vitamin D Albuterol, Advair Patient was a bit hypotensive this morning, got 500 cc bolus, normal saline at 125, will cut down to 50 cc an hour, as patient has a history of CHF, monitor closely for fluid overload Will consider diuresis based on blood pressures and lung exam, normally takes Lasix 60 twice daily at home, hold off for now given creatinine of 1.8 and concerns for dehydration given diarrhea Cardiac echocardiogram ordered Full code Xarelto for DVT prophylaxis Status: Acute Qualifiers: Chronicity: acute Qualified Code(s): J96.01 - Acute respiratory failure with hypoxia (2) COVID-19 determined by clinical diagnostic criteria: Management as mentioned above Status: Acute (3) Hypokalemia: Potassium repleted Status: Acute (4) Hypomagnesemia: Magnesium repleted Status: Acute (5) Paroxysmal A-fib: Paroxysmal A. fib, Currently A. fib heart rates 90s -100s Continue metoprolol Hold off on Cardizem drip Add p.o. Cardizem based on heart rates Status: Acute (6) Acute kidney injury: Creatinine 1.8, baseline is 1 Status: Acute (7) CHF (congestive heart failure): No signs of fluid overload, careful fluid hydration, Hold diuretics for now Status: Acute Qualifiers: Heart failure type: diastolic Heart failure chronicity: chronic Qualified Code(s): I50.32 - Chronic diastolic (congestive) heart failure (8) Diabetes 1.5, managed as type 2: Continue sliding scale Status: Acute (9) Urinary tract infection: Rocephin as above follow urine cultures Status: Acute (10) Diarrhea due to COVID-19: Follow stool studies, gentle IV hydration Status: Acute Additional A&P Information Cardiac diet DVT prophylaxis not indicated currently on Lovenox again Full code Attestations Medical Necessity Statement*: Patient requires hospitalization for respiratory failure sec to COVID-19, COVID-19 associate diarrhea, paroxysmal atrial fibrillation, NICOLA Coding Level of Care Code 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
--- NOTE | 2020-06-08 12:14 | USCV_ITS ---
Mavis Joseph Age: 65 Gender: F : 1955 Exam Date: 06/08/2020 14:09 Ordering Phys: Nagi Moya MD Technologist: Peg Davis Exam Location: [facility] [place] Indication: SOB BP: 125 / 106 HR: 105 Rhythm: Atrial fibrillation Technical Quality: Technically difficult study MEASUREMENTS (Male / Female) Normal Values 2D ECHO LV Diastolic Diameter PLAX 5.0 cm 4.2 - 5.9 / 3.9 - 5.3 cm LV Systolic Diameter PLAX 3.6 cm LV Chamber Size 4.6 cm IVS Diastolic Thickness 1.3 cm 0.6 - 1.0 / 0.6 - 0.9 cm IVS Systolic Thickness 1.4 cm LVPW Diastolic Thickness 0.9 cm 0.6 - 1.0 / 0.6 - 0.9 cm LVPW Systolic Thickness 1.3 cm RV Chamber Size 2.5 cm LVOT Diameter 2.1 cm LV Ejection Fraction 2D Teich 55.3 % LA Diameter 5.4 cm LA Width 4.7 cm LA Height 7.7 cm RA Width 3.1 cm RA Height 6.7 cm Aorta at Sinotubular Diameter 2.6 cm M-MODE LV Diastolic Diameter MM 5.9 cm 4.2 - 5.9 / 3.9 - 5.3 cm LV Systolic Diameter MM 4.1 cm LV Ejection Fraction MM Teich 57.2 % IVS Diastolic Thickness MM 0.7 cm 0.6 - 1.0 / 0.6 - 0.9 cm IVS Systolic Thickness MM 1.2 cm LVPW Diastolic Thickness MM 1.1 cm 0.6 - 1.0 / 0.6 - 0.9 cm LVPW Systolic Thickness MM 1.4 cm RV Diastolic Diameter MM 1.7 cm Aortic Annulus Diameter 3.0 cm LA Ao Ratio MM 2.1 MV E Point Septal Separation 0.4 cm DOPPLER AV Peak Velocity 163.0 cm/s LVOT Peak Velocity 96.0 cm/s AV Area Cont Eq vti 2.0 cm squared AV Area Cont Eq pk 2.0 cm squared MV Area PHT 4.3 cm squared MV E' Velocity 142.0 cm/s TR Peak Velocity 246.0 cm/s TR Peak Gradient 24.2 mmHg TR Mean Velocity 191.4 cm/s TR Mean Gradient 15.3 mmHg TR Velocity Time Integral 66.2 cm TV Peak E Velocity 99.0 cm/s Right Atrial Pressure 3.0 mmHg Pulmonary Artery Systolic Pressu 27.2 mmHg PV Peak Velocity 70.0 cm/s RV Acceleration Time 0.1 s RV Ejection Time 0.2 s RV AcT/ET 0.3 FINDINGS Left Ventricle Normal left ventricular size. LV systolic function is grossly normal with EF of 50-55%. Regional wall motion abnormalities can not be assessed because of limited visualization. Diastolic function can not be assessed because of atrial fibrillation. Right Ventricle The right ventricle is normal in size and function. Right Atrium The right atrium is enlarged. Left Atrium The left atrium is enlarged Mitral Valve Mild mitral annular calcification is noted. There is mild to moderate mitral regurgitation. Aortic Valve Structurally normal aortic valve without significant sclerosis or stenosis. There is no aortic regurgitation. Tricuspid Valve Structurally normal tricuspid valve without significant stenosis. Mild tricuspid regurgitation. RVSP is 35-40mmHg. RA pressure is 5-10mmHg. Mild pulmonary hypertension Pulmonic Valve Structurally normal pulmonic valve without significant stenosis. There is no pulmonic regurgitation. Pericardium Normal pericardium without effusion. Aorta Normal ascending aorta dimension. CONCLUSIONS Limited quality echo and poor visualization of cardiac structures LV systolic function is grossly normal with EF of 50-55% Diastolic function can not be assessed because of atrial fibrillation. Biatrial enlargement Mild to moderate mitral regurgitation is seen Mild pulmonary hypertension Compared to prior from 02/06/2019, mild pulmonary hypertension is noted. Khris Armas MD (Electronically Signed) Final Date: 09 June 2020 11:28 S
[2020-06-08 16:41] LABS: Glucose Point of Care 209 mg/dL (70-110)
[2020-06-08] MEDS: remdesivir 100 MG in sodium chloride 0.9% (100 ml) 100 ML IV (18:09)
[2020-06-08 18:41] LABS: Glucose Point of Care 182 mg/dL (70-110)
[2020-06-08 20:17] LABS: Glucose Point of Care 217 mg/dL (70-110)
[2020-06-09] VITALS (26 sets, daily range): BP systolic 90–139; BP diastolic 55–101; PULSE 64–97; RESP 8–24; TEMP 36.2–36.6; O2SAT 84–96
[2020-06-09 05:37] LABS: Basophils % 0.2 %; Hematocrit 44.9 % (37.0-47.0); Hemoglobin 13.6 g/dL (11.5-15.3); Lymphocytes # 0.9 10^3/uL (0.8-4.8); Lymphocytes % 15.4 %; Mean Corpuscular HGB Conc 30.3 g/dL (30.0-36.0); Mean Corpuscular Hemoglobin 29.8 pg (28.0-34.0); Mean Corpuscular Volume 98.2 fL (81-99); Mean Platelet Volume 10.4 fL (7.4-10.4); Monocytes # 0.4 10^3/uL (0.2-0.9); Monocytes % 7.1 %; Neutrophils # 4.46 10^3/uL (1.8-7.7); Nucleated Red Blood Cells % 0 %; Platelet Count 246 10^3/cmm (130-400); Red Blood Count 4.57 10^6/uL (4.1-5.3); Red Cell Distribution Width 13.8 % (12.1-15.1); White Blood Count 5.8 10^3/uL (4.0-10.0)
--- NOTE | 2020-06-09 06:00 | ECG_ITS ---
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 Measurements Intervals [place] Rate: 71 P: [place]: QRS: 79 QRSD: 95 T: 18 QT: 380 QTc: 414 Interpretive Statements ATRIAL FIBRILLATION ABNORMAL RHYTHM ECG Compared to ECG 06/07/2020 22:29:01 T-wave abnormality no longer present Electronically Signed On 06-09-2020 19:01:06 DOCUMENT EXAMINER by Khris Armas M.D. [id number] f
[2020-06-09 06:41] LABS: Glucose Point of Care 148 mg/dL (70-110)
[2020-06-09 06:47] LABS: Alanine Aminotransferase 11 U/L (0-33); Albumin Level 2.9 g/dL (3.5-5.2); Alkaline Phosphatase 59 IU/L (35-105); Aspartate Amino Transferase 26 U/L (0-32); Blood Urea Nitrogen 30 mg/dL (8-23); Calcium 8.8 mg/dL (8.5-10.5); Carbon Dioxide 18 mmol/L (22-29); Chloride 102 mmol/L (98-107); Glucose 152 mg/dL (65-115); Magnesium 2.2 mg/dL (1.7-2.3); Osmolality Calculated 283 mOsm/kg (285-295); Phosphorus 3.8 mg/dL (2.5-4.5); Sodium 132 mmol/L (136-145); Total Bilirubin 0.2 mg/dL (0.15-1.2); Total Protein 5.9 g/dL (6.6-8.7)
[2020-06-09 07:04] LABS: Anion Gap 17.6 (5-19); Potassium 5.6 mmol/L (3.5-5.1)
--- NOTE | 2020-06-09 07:57 | PC.NURSE ---
PATIENT'S POTASSIUM NOTED TO BE 5.6. DR. CALL NOTIFIED. CHANGE IV FLUIDS TO NORMAL SALINE AND HOLD PO POTASSIUM.
[2020-06-09 08:00] LABS: Glucose Point of Care 164 mg/dL (70-110)
[2020-06-09] MEDS: cefTRIAXone 1,000 MG in sodium chloride 0.9% (plus) 50 ML 100 MG IV (08:40)
[2020-06-09] MEDS: rivaroxaban 10 mg Tablet 20 MG PO (08:40)
[2020-06-09] MEDS: zinc gluconate 50 mg Tablet PO (08:40)
[2020-06-09] MEDS: dexamethasone 4 mg Tablet 6 MG PO (08:40)
[2020-06-09] MEDS: ascorbic acid 500 mg Tablet 1000 MG PO ×2 (08:41→17:32)
[2020-06-09] MEDS: metoprolol tartrate 25 mg Tablet PO (08:41)
[2020-06-09] MEDS: azithromycin 250 mg Tablet PO (08:41)
[2020-06-09] MEDS: sodium chloride 0.9% 1,000 ML 50 ML IV (08:41)
[2020-06-09] MEDS: levothyroxine 50 mcg Tablet PO (08:41)
[2020-06-09] MEDS: cholecalciferol (vitamin D3) 5,000 unit Tablet 5000 UNIT PO (08:41)
[2020-06-09 10:58] LABS: Glucose Point of Care 222 mg/dL (70-110)
--- NOTE | 2020-06-09 11:14 | P.PN_ITS ---
Subjective Subjective: Interval history: Patient was examined this morning, she tells me that her breathing is better, she is still on 2 L, no fevers, no chills, no vomiting, no vomiting, overall doing better Vitals/I&O/Wt Last Vital Signs Temp 97.6 F 06/09/20 03:53 Pulse 87 06/09/20 08:14 Resp 20 H 06/09/20 08:14 BP 105/59 06/09/20 08:00 Pulse Ox 94 06/09/20 08:14 06/08/20 06/09/20 06/09/20 22:59 06:59 14:59 Intake Total 780 / 2063.333 240 / 2303.333 807.5 / 807.5 Output Total 500 / 500 350 / 850 Balance 280 / 1563.333 -110 / 1453.333 807.5 / 807.5 Weight last 48 hrs Weight 90.718 kg Physical Exam Const: COMMON NORMALS: no acute distress and patient oriented x3 HENMT: COMMON NORMALS: normocephalic HEAD & SCALP: normocephalic Neck/C-Spine: COMMON NORMALS: no JVD Resp: COMMON NORMALS: normal respiratory effort, No retractions, No use of accessory muscles and clear to auscultation bilaterally AUSCULTATION: clear to auscultation bilaterally Cardio: COMMON NORMALS: no JVD, regular rate, regular rhythm, S1 normal heart sound present and S2 normal heart sound present RATE: regular rate RHYTHM: regular rhythm HEART SOUNDS: S1 normal heart sound present and S2 normal heart sound present GI: COMMON NORMALS: Normal to inspection, nondistended, normoactive bowel sounds present, Soft to palpation, non-tender, No hepatosplenomegaly present, no masses and no bruits PALPATION: Yes Soft to palpation and Yes No hepatosplenomegaly present Extremity: COMMON NORMALS: capillary refill normal, no clubbing, cyanosis or edema, no calf tenderness and no pedal edema Neuro: COMMON NORMALS: patient oriented x3 Psych: COMMON NORMALS: mental status grossly normal Data : 06/09/20 04:04 06/09/20 04:04 Micro: Microbiology 06/08/20 08:58 Blood Culture - Preliminary Blood NEGATIVE TO DATE 06/08/20 08:58 Blood Culture - Preliminary Blood NEGATIVE TO DATE A&P Assessment and plan (1) Respiratory failure with hypoxia: Acute hypoxic respiratory failure secondary to COVID-19 pneumonia D-dimer 1.96, patient compliant with her Xarelto therapy, hold off on CT an giogram of the chest Currently doing well on 2 L nasal cannula Continue remdesivir and Decadron, GFR is 30, so can continue remdesivir Monitor QTC, telemetry monitoring Rocephin and azithromycin for secondary bacterial pneumonia treatment Vitamin C, zinc, vitamin D Albuterol, Advair Patient has borderline low blood pressures, no complaints of lightheadedness and dizziness, will continue to monitor Will consider diuresis based on blood pressures and lung exam, normally takes Lasix 60 twice daily at home, hold off for now given creatinine of 1.7 and concerns for dehydration given diarrhea Cardiac echocardiogram ordered Full code Xarelto for DVT prophylaxis Status: Acute Qualifiers: Chronicity: acute Qualified Code(s): J96.01 - Acute respiratory failure with hypoxia (2) COVID-19 determined by clinical diagnostic criteria: Management as mentioned above Status: Acute (3) Hypomagnesemia: Magnesium repleted Status: Acute (4) Paroxysmal A-fib: Paroxysmal A. fib, Currently A. fib heart rates 90s -100s Continue metoprolol Status: Acute (5) Acute kidney injury: Creatinine 1.7, baseline is 1 Status: Acute (6) CHF (congestive heart failure): No signs of fluid overload, careful fluid hydration, Hold diuretics for now Status: Acute Qualifiers: Heart failure type: diastolic Heart failure chronicity: chronic Qualified Code(s): I50.32 - Chronic diastolic (congestive) heart failure (7) Diabetes 1.5, managed as type 2: Continue sliding scale Status: Acute (8) Urinary tract infection: Rocephin as above follow urine cultures Status: Acute (9) Diarrhea due to COVID-19: Follow stool studies, gentle IV hydration Status: Acute Additional A&P Information Cardiac diet DVT prophylaxis not indicated currently on Lovenox again Full code Hyperkalemia, potassium 5.7, will recheck in the afternoon, fluids were changed Plan for today, continue remdesivir, Decadron, antibiotics, gentle fluid hydration, potassium level was 5.7, will hold potassium, change fluid around, recheck potassium levels in the afternoon Attestations 2 Medical Necessity Statement*: Patient requires hospitalization for respiratory failure with hypoxia secondary to COVID-19, secondary bacterial pneumonia, with acute kidney injury, dehydration, diarrhea Coding Level of Care 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
[2020-06-09] MEDS: insulin glargine 100 units/1 mL 5 UNIT SUBCUT (16:10)
[2020-06-09 16:14] LABS: Anion Gap 13.8 (5-19); Blood Urea Nitrogen 36 mg/dL (8-23); Calcium 8.8 mg/dL (8.5-10.5); Carbon Dioxide 21 mmol/L (22-29); Chloride 102 mmol/L (98-107); Glucose 185 mg/dL (65-115); Osmolality Calculated 287 mOsm/kg (285-295); Potassium 4.8 mmol/L (3.5-5.1); Sodium 132 mmol/L (136-145)
[2020-06-09 16:40] LABS: Glucose Point of Care 205 mg/dL (70-110)
[2020-06-09] MEDS: remdesivir 100 MG in sodium chloride 0.9% (100 ml) 100 ML IV (17:32)
[2020-06-09] MEDS: metoprolol tartrate 25 mg Tablet 12.5 MG PO (20:07)
[2020-06-09 20:50] LABS: Glucose Point of Care 223 mg/dL (70-110)
--- NOTE | 2020-06-09 21:33 | PC.NURSE ---
PT IS RESTING IN BED. PT DENIES PAIN AT THIS TIME. WILL CONTINUE TO MONITOR.
[2020-06-10] VITALS (12 sets, daily range): BP systolic 87–102; BP diastolic 56–73; PULSE 80–101; RESP 13–22; TEMP 36.4–36.9; O2SAT 92–96
[2020-06-10] MEDS: sodium chloride 0.9% 1,000 ML 50 ML IV (04:33)
[2020-06-10 04:44] LABS: Basophils % 0.1 %; Hematocrit 43.5 % (37.0-47.0); Hemoglobin 13.3 g/dL (11.5-15.3); Lymphocytes # 0.9 10^3/uL (0.8-4.8); Mean Corpuscular HGB Conc 30.6 g/dL (30.0-36.0); Mean Corpuscular Hemoglobin 29.8 pg (28.0-34.0); Mean Corpuscular Volume 97.5 fL (81-99); Mean Platelet Volume 10.5 fL (7.4-10.4); Monocytes # 0.5 10^3/uL (0.2-0.9); Monocytes % 4.4 %; Neutrophils # 9.28 10^3/uL (1.8-7.7); Neutrophils % 86.7 %; Nucleated Red Blood Cells % 0 %; Platelet Count 287 10^3/cmm (130-400); Red Blood Count 4.46 10^6/uL (4.1-5.3); Red Cell Distribution Width 13.6 % (12.1-15.1); White Blood Count 10.7 10^3/uL (4.0-10.0)
--- NOTE | 2020-06-10 05:02 | PC.NURSE ---
PT HAD AN UNEVENTFUL NIGHT. PT IS RESTING IN BED. PT DENIES PAIN AT THIS TIME. WILL CONTINUE TO MONITOR.
[2020-06-10 05:04] LABS: C Reactive Protein 44.7 mg/L (0.0-4.9)
[2020-06-10 05:07] LABS: Alanine Aminotransferase 14 U/L (0-33); Albumin Level 3.1 g/dL (3.5-5.2); Alkaline Phosphatase 64 IU/L (35-105); Aspartate Amino Transferase 20 U/L (0-32); Blood Urea Nitrogen 39 mg/dL (8-23); Calcium 8.8 mg/dL (8.5-10.5); Carbon Dioxide 19 mmol/L (22-29); Chloride 103 mmol/L (98-107); Glomerular Filtration Rate 34.6 mL/min (90-130); Glucose 193 mg/dL (65-115); Magnesium 2.3 mg/dL (1.7-2.3); Osmolality Calculated 291 mOsm/kg (285-295); Sodium 133 mmol/L (136-145); Total Bilirubin 0.2 mg/dL (0.15-1.2); Total Protein 6.1 g/dL (6.6-8.7)
[2020-06-10 05:15] LABS: NT Pro B Type Natriuretic Pept 3526 pg/mL (0-125); Procalcitonin 0.13 ng/mL (0-0.5)
--- NOTE | 2020-06-10 06:00 | ECG_ITS ---
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
[2020-06-10 06:45] LABS: Glucose Point of Care 173 mg/dL (70-110)
--- NOTE | 2020-06-10 07:00 | XRR_ITS ---
PROCEDURE INFORMATION: Exam: XR Chest Exam date and time: 06/10/2020 6:24 AM Age: 65 years old Clinical indication: Shortness of breath; Patient HX: SOB, weakness TECHNIQUE: Imaging protocol: XR of the chest Views: 1 view. COMPARISON: CR Chest 1 [place] [id number] 07/06/2018 10:29 PM FINDINGS: The thorax is partially obscured by overlying EKG leads. Lungs: Hyperinflation, interstitial prominence, and asymmetric bilateral airspace disease. Pleural spaces: Obscuration of the left costophrenic angle by superficial EKG leads. No significant right pleural effusion. Heart/Mediastinum: No cardiomegaly. Bones/joints: Mild degenerative change. XR/XR chest 1V portable [id number] IMPRESSION: Hyperinflation, interstitial prominence, and asymmetric bilateral airspace disease.
[2020-06-10] MEDS: cefTRIAXone 1,000 MG in sodium chloride 0.9% (plus) 50 ML 100 MG IV (08:41)
[2020-06-10] MEDS: levothyroxine 50 mcg Tablet PO (08:42)
[2020-06-10] MEDS: zinc gluconate 50 mg Tablet PO (08:42)
[2020-06-10] MEDS: dexamethasone 4 mg Tablet 6 MG PO (08:42)
[2020-06-10] MEDS: rivaroxaban 10 mg Tablet 20 MG PO (08:42)
[2020-06-10] MEDS: ascorbic acid 500 mg Tablet 1000 MG PO ×2 (08:42→17:33)
[2020-06-10] MEDS: azithromycin 250 mg Tablet PO (08:42)
[2020-06-10] MEDS: cholecalciferol (vitamin D3) 5,000 unit Tablet 5000 UNIT PO (08:42)
[2020-06-10] MEDS: metoprolol tartrate 25 mg Tablet 12.5 MG PO ×2 (08:46→20:43)
[2020-06-10 11:29] LABS: Glucose Point of Care 224 mg/dL (70-110)
--- NOTE | 2020-06-10 12:21 | DCPLANNER ---
Pt is quarantined and did not answer her phone. Nurse, Hiwot explained IMM rights with pt and gave her a copy of rights on 06/10/20 @ 0982.
[2020-06-10 16:44] LABS: Glucose Point of Care 216 mg/dL (70-110)
--- NOTE | 2020-06-10 17:12 | PM.PN ---
Subjective Subjective: Interval history: Patient reports doing much better today. Denies shortness of breath or chest pain. Still requires 2 L to saturate in the mid 90s. Denies cough. Ambulate in her room without significant difficulty. Still somewhat worried to go home. Vitals/I&O/Wt Last Vital Signs Temp 98.0 F 06/10/20 16:00 Pulse 98 06/10/20 16:00 Resp 18 06/10/20 16:00 BP 102/71 06/10/20 16:00 Pulse Ox 96 06/10/20 16:00 06/10/20 06/10/20 06/10/20 06:59 14:59 22:59 Intake Total 1493.333 / 2760.833 170 / 170 Output Total 750 / 1950 500 / 500 Balance 743.333 / 810.833 -330 / -330 Physical Exam Narrative: EXAM NARRATIVE: Overall decreased air movement but otherwise clear. Heart is regular. Data : 06/10/20 04:12 06/10/20 04:12 Micro: Microbiology 06/08/20 18:20 Urine Culture - Preliminary Urine,Voided A&P Assessment and plan (1) Respiratory failure with hypoxia: Acute hypoxic respiratory failure secondary to COVID-19 pneumonia D-dimer 1.96, patient compliant with her Xarelto therapy, hold off on CT angiogram of the chest Currently doing well on 2 L nasal cannula Continue remdesivir and Decadron, GFR is 30, so can continue remdesivir Monitor QTC, telemetry monitoring Rocephin and azithromycin for secondary bacterial pneumonia treatment Vitamin C, zinc, vitamin D Albuterol, Advair Patient has borderline low blood pressures, no complaints of lightheadedness and dizziness, will continue to monitor Will consider diuresis based on blood pressures and lung exam, normally takes Lasix 60 twice daily at home, hold off for now given creatinine of 1.7 and concerns for dehydration given diarrhea Cardiac echocardiogram ordered Full code Xarelto for DVT prophylaxis Status: Acute Qualifiers: Chronicity: acute Qualified Code(s): J96.01 - Acute respiratory failure with hypoxia (2) COVID-19 determined by clinical diagnostic criteria: Management as mentioned above Status: Acute (3) Hypomagnesemia: Magnesium repleted Status: Acute (4) Paroxysmal A-fib: Paroxysmal A. fib, Currently A. fib heart rates 90s -100s Continue metoprolol Status: Acute (5) Acute kidney injury: Creatinine 1.7, baseline is 1 Status: Acute (6) CHF (congestive heart failure): No signs of fluid overload, careful fluid hydration, Hold diuretics for now Status: Acute Qualifiers: Heart failure type: diastolic Heart failure chronicity: chronic Qualified Code(s): I50.32 - Chronic diastolic (congestive) heart failure (7) Diabetes 1.5, managed as type 2: Continue sliding scale Status: Acute (8) Urinary tract infection: Rocephin as above follow urine cultures Status: Acute (9) Diarrhea due to COVID-19: Follow stool studies, gentle IV hydration Status: Acute Additional A&P Information Cardiac diet DVT prophylaxis not indicated currently on Lovenox again Full code Hyperkalemia, potassium 5.7, will recheck in the afternoon, fluids were changed Plan: Discontinue IV fluids as patient's oral intake is adequate. Continue remdesivir and dexamethasone. Home O2 evaluation in a.m. and if continues to improve we will likely be able to dismiss patient home tomorrow. Attestations Medical Necessity Statement*: Patient with COVID-19 pneumonia requires close inpatient monitoring and treatment until deemed safe for discharge Coding Level of Care Code Acute Research Epidemiologist for [facility] Fwd Diagnoses Respiratory failure with hypoxia J96.01 Chronicity: acute COVID-19 determined by clinical diagnostic criteria U07.1 Hypomagnesemia E83.42 Paroxysmal A-fib I48.0 Acute kidney injury N17.9 CHF (congestive heart failure) I50.32 Heart failure type: diastolic Heart failure chronicity: chronic Diabetes 1.5, managed as type 2 E13.9 Urinary tract infection N39.0 Diarrhea due to COVID-19 U07.1; A08.39
[2020-06-10] MEDS: remdesivir 100 MG in sodium chloride 0.9% (100 ml) 100 ML IV (17:32)
[2020-06-10] MEDS: insulin glargine 100 units/1 mL 5 UNIT SUBCUT (17:32)
[2020-06-10 20:40] LABS: Glucose Point of Care 260 mg/dL (70-110)
--- NOTE | 2020-06-10 20:58 | PC.NURSE ---
Received report from Hiwot Silver RN. Patient resting in bed. Denies pain or discomforts. States, I am ready to go home. Discussed Remdesivir. Patient verbalized complete understanding. Provided cranberry juice per patient request. No distress observed.
[2020-06-11] VITALS (12 sets, daily range): BP systolic 93–104; BP diastolic 60–78; PULSE 84–102; RESP 14–32; TEMP 36.6–36.7; O2SAT 85–98
--- NOTE | 2020-06-11 00:26 | PC.NURSE ---
Blood pressures have been low using upper arm, last upper left arm pressure was 88/59. Performed blood pressure check to left ankle and pressure was 101/64.
--- NOTE | 2020-06-11 04:41 | PC.NURSE ---
0400 vital signs not obtained. Patient did not fall asleep until after 0100. Requested with 0000 vitals to be allowed to sleep some. Patient stated, I am supposed to be discharged today.
[2020-06-11 05:10] LABS: Basophils % 0.2 %; Hemoglobin 13.2 g/dL (11.5-15.3); Lymphocytes % 7.6 %; Mean Corpuscular HGB Conc 30.7 g/dL (30.0-36.0); Mean Corpuscular Hemoglobin 30.1 pg (28.0-34.0); Mean Corpuscular Volume 98.2 fL (81-99); Mean Platelet Volume 10.4 fL (7.4-10.4); Monocytes # 0.6 10^3/uL (0.2-0.9); Monocytes % 4.2 %; Neutrophils # 11.49 10^3/uL (1.8-7.7); Neutrophils % 86.7 %; Nucleated Red Blood Cells % 0 %; Platelet Count 304 10^3/cmm (130-400); Red Blood Count 4.38 10^6/uL (4.1-5.3); Red Cell Distribution Width 13.7 % (12.1-15.1); White Blood Count 13.2 10^3/uL (4.0-10.0)
[2020-06-11 05:32] LABS: Alanine Aminotransferase 17 U/L (0-33); Albumin Level 3.2 g/dL (3.5-5.2); Alkaline Phosphatase 68 IU/L (35-105); Anion Gap 14.7 (5-19); Aspartate Amino Transferase 22 U/L (0-32); Blood Urea Nitrogen 39 mg/dL (8-23); Calcium 8.8 mg/dL (8.5-10.5); Carbon Dioxide 19 mmol/L (22-29); Chloride 103 mmol/L (98-107); Globulin 2.8 g/dL (1.3-4.6); Glucose 201 mg/dL (65-115); Magnesium 2.4 mg/dL (1.7-2.3); Osmolality Calculated 289 mOsm/kg (285-295); Phosphorus 4.8 mg/dL (2.5-4.5); Potassium 4.7 mmol/L (3.5-5.1); Sodium 132 mmol/L (136-145); Total Bilirubin 0.2 mg/dL (0.15-1.2)
[2020-06-11 05:39] LABS: NT Pro B Type Natriuretic Pept 4945 pg/mL (0-125)
--- NOTE | 2020-06-11 06:00 | ECG_ITS ---
[facility] Test Date: 2020-06-11 Pat Name: Mavis Joseph Department: Room: 104 Gender: Female Collections Specialist: : [id number] Requested By: Nagi Moya Order Number: [id number] Lililan MD: Lane Lynn M.D. Measurements Intervals [place] Rate: 93 P: [place]: QRS: 22 QRSD: 90 T: 30 QT: 361 QTc: 450 Interpretive Statements ATRIAL FIBRILLATION LOW QRS VOLTAGE IN PRECORDIAL LEADS [QRS DEFLECTION < 1.0 mV IN CHEST LEADS] ABNORMAL RHYTHM ECG Compared to ECG 06/10/2020 05:37:19 No significant changes Electronically Signed On 06-11-2020 20:58:14 LIFE SKILLS COORDINATOR VOLUNTEER by Lane Lynn M.D. [id number]
[2020-06-11 06:32] LABS: Glucose Point of Care 218 mg/dL (70-110)
[2020-06-11] MEDS: rivaroxaban 10 mg Tablet 20 MG PO (09:51)
[2020-06-11] MEDS: dexamethasone 4 mg Tablet 6 MG PO (09:51)
[2020-06-11] MEDS: metoprolol tartrate 25 mg Tablet 12.5 MG PO (09:52)
[2020-06-11] MEDS: ascorbic acid 500 mg Tablet 1000 MG PO ×2 (09:52→18:31)
[2020-06-11] MEDS: cholecalciferol (vitamin D3) 5,000 unit Tablet 5000 UNIT PO (09:52)
[2020-06-11] MEDS: azithromycin 250 mg Tablet PO (09:52)
[2020-06-11] MEDS: levothyroxine 50 mcg Tablet PO (09:52)
[2020-06-11] MEDS: cefTRIAXone 1,000 MG in sodium chloride 0.9% (plus) 50 ML 100 MG IV (09:59)
[2020-06-11] MEDS: zinc gluconate 50 mg Tablet PO (10:08)
--- NOTE | 2020-06-11 11:13 | PM.DCS ---
Discharge Providers Date of Admission: 06/07/20 22:43 Date of Discharge: June 11, 2020 Attending Provider at Admission: Baldemar Field MD Attending Provider at Discharge: Khadar King MD Primary Care Provider: Anna Kaufman MD Diagnoses at Discharge Discharge Diagnosis (1) Respiratory failure with hypoxia: Status: Acute Qualifiers: Chronicity: acute Qualified Code(s): J96.01 - Acute respiratory failure with hypoxia (2) COVID-19 determined by clinical diagnostic criteria: Status: Acute (3) Hypomagnesemia: Status: Acute (4) Paroxysmal A-fib: Status: Acute (5) Acute kidney injury: Status: Acute Permanent problem details: Makanda unlikely. Patient appears to have chronic kidney disease stage III. (6) CHF (congestive heart failure): Status: Acute Permanent problem details: Pt is wanting to wait for the Stress test till the VIrus is gone! Qualifiers: Heart failure type: diastolic Heart failure chronicity: chronic Qualified Code(s): I50.32 - Chronic diastolic (congestive) heart failure (7) Diabetes 1.5, managed as type 2: Status: Acute (8) Urinary tract infection: Status: Acute Permanent problem details: [place] unlikely. (9) Diarrhea due to COVID-19: Status: Acute Reason for Visit Reason for Visit: WEAKNESS, FEELING DEHYDRATED Hospital Course Hospital Course Patient presented with acute hypoxic respite failure secondary to COVID-19 pneumonia. Patient was treated with dexamethasone and remdesivir and gradually improved and this morning reports feeling much better and strong enough to be dismissed home. She denies shortness of breath or chest pain this morning. She denies cough. She qualified for 2 L of oxygen and this was prescribed. We will continue patient's current home medications. I will add Omnicef for 3 more days as bacterial coinfection cannot be completely ruled out. Patient to follow-up with primary care physician and I will also request outpatient follow-up with nephrology. Physical Exam Narrative: EXAM NARRATIVE: Lungs overall decreased air movement but otherwise clear. Heart is regular. No lower extremity edema. Discharge Data Data Completed and Pending: Completed Studies During Hospitalization Category Date Time Status CT abdomen pelvis wo con [id number] Stat Cat Scan 06/07/20 18:04 Completed XR chest 1V tabby ble [id number] Routine Exams 06/10/20 07:00 Completed CV echo complete* [id number] Routine Ultrasound 06/08/20 12:14 Completed Pending at discharge Category Date Time Status Blood Culture Sta t Lab 06/08/20 08:58 Results C Reactive Protei n AM LABS Lab 06/12/20 04:00 Ordered Clostridioides Di fficile PCR Routin e Lab 06/08/20 08:33 Ordered Enteric Bacterial Panel by PCR Rout ine Lab 06/08/20 08:33 Ordered Enteric Parasite Panel by PCR Routi ne Lab 06/08/20 08:33 Ordered Immunochemical Fe lucas OCB Routine Lab 06/08/20 08:33 Ordered Lactoferrin Routi ne Lab 06/08/20 08:33 Ordered NT Pro B Type Jennifer riuretic Pept QAM Lab 06/12/20 06:00 Ordered Procalcitonin AM LABS Lab 06/12/20 04:00 Ordered Sputum Culture an d Gram Stain Stat Lab 06/08/20 08:31 Uncollected Labs from last 24 hours 06/11/20 06/11/20 06/11/20 06:27 04:30 04:30 WBC 13.2 H RBC 4.38 Hgb 13.2 Hct 43.0 MCV 98.2 MCH 30.1 MCHC 30.7 RDW 13.7 Plt Count 304 MPV 10.4 Neut % (Auto) 86.7 Lymph % (Auto) 7.6 [place] % (Auto) 4.2 Eos % (Auto) 0.0 Baso % (Auto) 0.2 Neut # (Auto) 11.49 H Lymph # (Auto) 1.0 [place] # (Auto) 0.6 Eos # (Auto) 0.0 Baso # (Auto) 0.0 Nucleated RBC % (a uto) 0 Nucleated RBCs # 0.0 Sodium 132 L Potassium 4.7 Chloride 103 Carbon Dioxide 19 L Anion Gap 14.7 BUN 39 H Creatinine 1.7 H GFR Calculation 30.0 L Glucose 201 H POC Glucose 218 H Calculated Osmolal ity 289 Calcium 8.8 Phosphorus 4.8 H Magnesium 2.4 H Total Bilirubin 0.2 AST 22 ALT 17 Alkaline Phosphata se 68 C-Reactive Protein NT-Pro-B Natriuret Pep Total Protein 6.0 L Albumin 3.2 L Globulin 2.8 Procalcitonin 06/11/20 06/11/20 06/10/20 04:30 04:30 20:36 WBC RBC Hgb Hct MCV MCH MCHC RDW Plt Count MPV Neut % (Auto) Lymph % (Auto) [place] % (Auto) Eos % (Auto) Baso % (Auto) Neut # (Auto) Lymph # (Auto) [place] # (Auto) Eos # (Auto) Baso # (Auto) Nucleated RBC % (a uto) Nucleated RBCs # Sodium Potassium Chloride Carbon Dioxide Anion Gap BUN Creatinine GFR Calculation Glucose POC Glucose 260 H Calculated Osmolal ity Calcium Phosphorus Magnesium Total Bilirubin AST ALT Alkaline Phosphata se C-Reactive Protein 25.0 H NT-Pro-B Natriuret Pep 4945 H Total Protein Albumin Globulin Procalcitonin 0.10 06/10/20 06/10/20 16:37 11:20 WBC RBC Hgb Hct MCV MCH MCHC RDW Plt Count MPV Neut % (Auto) Lymph % (Auto) [place] % (Auto) Eos % (Auto) Baso % (Auto) Neut # (Auto) Lymph # (Auto) [place] # (Auto) Eos # (Auto) Baso # (Auto) Nucleated RBC % (a uto) Nucleated RBCs # Sodium Potassium Chloride Carbon Dioxide Anion Gap BUN Creatinine GFR Calculation Glucose POC Glucose 216 H 224 H Calculated Osmolal ity Calcium Phosphorus Magnesium Total Bilirubin AST ALT Alkaline Phosphata se C-Reactive Protein NT-Pro-B Natriuret Pep Total Protein Albumin Globulin Procalcitonin Vitals: Last Vital Signs Temp 97.8 F 06/11/20 10:39 Pulse 102 H 06/11/20 10:39 Resp 21 H 06/11/20 10:39 BP 98/76 06/11/20 10:39 Pulse Ox 94 06/11/20 10:39 Discharge Plan Discharge Patient Disposition: Home Condition: Stable Prescriptions: New cholecalciferol (vitamin D3) 125 mcg (5,000 unit) Tablet 5,000 unit PO DAILY Qty: 30 RF: 0 cefdinir 300 mg capsule 300 mg PO BID 5 Days Qty: 6 RF: 0 Continued metoprolol tartrate 50 mg tablet 25 mg PO BID@799,1999 RF: 0 potassium chloride 20 mEq tablet extended release 20 meq PO BID@799,1999 RF: 0 (DME) Diabetic Shoes Qty: 1 RF: 0 furosemide 40 mg tablet 60 mg PO BID@799,1999 RF: 0 metformin 500 mg tablet 500 mg PO BID@799,1999 RF: 0 levothyroxine 50 mcg tablet 50 mcg PO DAILY@0800 RF: 0 lisinopril 5 mg tablet 5 mg PO DAILY@0800 RF: 0 rivaroxaban 20 mg tablet 20 mg PO DAILY@0800 RF: 0 Discharge Orders: Discharge Order (Routine); Ordered 06/11/20 Ordered By: Khadar King Other Ambulatory Orders: DME: Oxygen (Order) Location: None Selected Ordered By: Khadar King Referrals: Anna Kaufman MD [Primary Care Provider] - 4-7 days Jose Baker MD [Referring] - 2 weeks Discharge Diet: Advance as tolerated Discharge Activity: Increase activity as tolerated Activity Restrictions/Additional Instructions: Please call your doctor or present to emergency department if your condition worsens or you develop diarrhea, lightheadedness, fatigue or see blood in your stool or black stool. Discharge Attestations Time Spent in Discharge Care*: greater than 30 min Quality Metrics Clinical Quality Measures During this hospital stay, did patient experience: None Coding Level of Care Code Acute Crusher [employer] for [employer] [facility] Diagnoses Respiratory failure with hypoxia J96.01 Chronicity: acute COVID-19 determined by clinical diagnostic criteria U07.1 Hypomagnesemia E83.42 Paroxysmal A-fib I48.0 Acute kidney injury N17.9 CHF (congestive heart failure) I50.32 Heart failure type: diastolic Heart failure chronicity: chronic Diabetes 1.5, managed as type 2 E13.9 Urinary tract infection N39.0 Diarrhea due to COVID-19 U07.1; A08.39
[2020-06-11 11:21] LABS: Glucose Point of Care 265 mg/dL (70-110)
[2020-06-11] MEDS: FUROsemide 40 mg Tablet 60 MG PO (11:50)
[2020-06-11] MEDS: remdesivir 100 MG in sodium chloride 0.9% (100 ml) 100 ML IV (14:14)
[2020-06-11] MEDS: insulin glargine 100 units/1 mL 5 UNIT SUBCUT (18:32)
--- NOTE | 2020-06-11 21:10 | PC.NURSE ---
Spoke with Landon at [facility] about this patient's ride that was called in at 1650 this evening. Per Landon this patient was set up to be transported by Carla. Landon was notified that this patient requires 02 and is covid positive. He stated that they had her set up with abulatory not requiring oxygen. He stated that he has escalated this up to the dispatching office and they will be notifying me as soon as they have the trip assigned. As of the typing of this note i have been notified by [facility] that they will be picking this patient up. I also notified Rg with [facility] care to make sure he was still available to meet with them at the residence to set up her oxygen. Pt and all parties have been notified at this time and everyone is satisfied with these arrangements.
[2020-06-11 21:44] LABS: Glucose Point of Care 172 mg/dL (70-110)
--- NOTE | 2020-06-11 22:40 | PC.NURSE ---
[facility] transportation to warehouse picker patient in wheelchair. Pt is without complaint at this time... all discharge paperwork given to patient and all followup appointments as well as prescription information is covered verbally as well as in writting for the patient. Pt discharged without complaints at this time.
== END 2020-06-11 22:40 | disposition home or self-care (01) | DRG 177 ==
LOC: ER 21:51 → CSU 06-08 06:53
PROVIDERS: Family Medicine; Admitting Provider Internal Medicine; Emergency Provider Emergency Medicine; PCP Family Medicine; Visit Provider Internal Medicine
DX: U07.1 COVID-19 (principal); J12.82 Pneumonia due to coronavirus disease 2019; J96.01 Acute respiratory failure with hypoxia; J15.9 Unspecified bacterial pneumonia; A08.39 Other viral enteritis; I13.0 Hypertensive heart and chronic kidney disease with heart failure and stage 1 through stage 4 chronic kidney disease, or unspecified chronic kidney disease; I50.32 Chronic diastolic (congestive) heart failure; I48.0 Paroxysmal atrial fibrillation; Z79.01 Long term (current) use of anticoagulants; E87.6 Hypokalemia; E83.42 Hypomagnesemia; Z87.891 Personal history of nicotine dependence; N18.30 Chronic kidney disease, stage 3 unspecified; E11.22 Type 2 diabetes mellitus with diabetic chronic kidney disease; K21.9 Gastro-esophageal reflux disease without esophagitis; E78.00 Pure hypercholesterolemia, unspecified; E03.9 Hypothyroidism, unspecified; E78.2 Mixed hyperlipidemia; E11.42 Type 2 diabetes mellitus with diabetic polyneuropathy; E86.0 Dehydration; I95.9 Hypotension, unspecified
CPT/HCPCS: 36415; 36416; 71045; 74176; 80048; 80053; 81001; 82550; 82962; 83605; 83615; 83690; 83735; 83880; 84100; 84145; 84443; 85025; 85378; 86140; 87040; 87086; 87426; 93005; 93306; 94640; 96365; 96366; 96367; 96372; 96375; 99291; J0456; J0696; J1815 ×2; J2405; J3475; J3490; J7030; J7050; J8540; Q0144

== ENCOUNTER 2020-06-13 22:48 | Emergency (ER) | payer MEDICARE, MEDICAID, SELFPAY ==
[2020-06-13 22:56] VITALS: BP 104/72; PULSE 86; RESP 20; O2SAT 99; BMI 36.2
--- NOTE | 2020-06-13 23:24 | XRR_ITS ---
PROCEDURE INFORMATION: Exam: XR Chest Exam date and time: 06/13/2020 11:28 PM Age: 65 years old Clinical indication: Shortness of breath; Patient HX: SOB. Covid + TECHNIQUE: Imaging protocol: XR of the chest Views: 1 view. COMPARISON: CR XR chest 1V portable [id number] 06/10/2020 6:21 AM FINDINGS: Lungs: Increased peribronchial markings are again seen bilaterally and bilateral interstitial opacities are seen predominately in the lower hemithoraces, findings that suggest bilateral bronchitis and bilateral basilar interstitial pneumonia. These findings are unchanged from 06/10/2020. Pleural spaces: Unremarkable. No pleural effusion. No pneumothorax. Heart/Mediastinum: Unremarkable. No cardiomegaly. Bones/joints: Unremarkable. XR/XR chest 1V portable [id number] IMPRESSION: Probable bilateral bronchitis and bilateral basilar interstitial pneumonia unchanged from 06/10/2020.
--- NOTE | 2020-06-13 23:25 | ECG_ITS ---
[facility] Test Date: 2020-06-13 Pat Name: Mavis Joseph Department: Room: Gender: Female Java Jsf Developer: : 1955 Requested By: Thomas Ayala Order Number: [id number] Reading MD: YOHAN GALLEGO Measurements Intervals [place] Rate: 96 P: [place]: QRS: 68 QRSD: 110 T: -4 QT: 369 QTc: 467 Interpretive Statements ATRIAL FIBRILLATION LOW QRS VOLTAGE IN PRECORDIAL LEADS [QRS DEFLECTION < 1.0 mV IN CHEST LEADS] MINIMAL ST DEPRESSION [0.025+ mV ST DEPRESSION] ABNORMAL QRS-T ANGLE [QRS-T AXIS DIFFERENCE > 60] Compared to ECG 06/11/2020 05:22:37 ST (T wave) deviation now present Electronically Signed On 06-14-2020 18:46:02 PUNCH HAND by YOHAN GALLEGO [id number]
[2020-06-13 23:37] LABS: Basophils % 0.3 %; Eosinophils % 0.3 %; Hematocrit 46.9 % (37.0-47.0); Hemoglobin 15.2 g/dL (11.5-15.3); Lymphocytes # 2.3 10^3/uL (0.8-4.8); Lymphocytes % 21.2 %; Mean Corpuscular HGB Conc 32.4 g/dL (30.0-36.0); Mean Corpuscular Volume 92.7 fL (81-99); Mean Platelet Volume 10.1 fL (7.4-10.4); Monocytes # 1.1 10^3/uL (0.2-0.9); Monocytes % 10.2 %; Neutrophils % 66.7 %; Nucleated Red Blood Cells % 0 %; Platelet Count 429 10^3/cmm (130-400); Red Blood Count 5.06 10^6/uL (4.1-5.3); Red Cell Distribution Width 13.7 % (12.1-15.1); White Blood Count 10.6 10^3/uL (4.0-10.0)
[2020-06-13 23:39] VITALS: BP 102/71; PULSE 106; RESP 25; TEMP 36.4; O2SAT 97
[2020-06-13 23:55] LABS: Add Urine Microscopic? YES; Bilirubin Urine Neg (Negative); Blood Urine 2+ (Negative); Glucose Urine UA Norm (Normal); Ketones Urine Negative (Negative); Leukocyte Esterase Urine 1+ (Negative); Nitrate Urine Negative (Negative); Protein Urine Neg (Negative); Specific Gravity, Urine 1.005 (1.005-1.030); Urine Appearance Clear (CLEAR); Urine Color Yellow (Yellow); Urobilinogen Urine Norm (Negative); pH Urine 5 (5-7)
[2020-06-13 23:58] LABS: Troponin(5th) Baseline 28 ng/L (0-10)
[2020-06-14 00:05] LABS: NT Pro B Type Natriuretic Pept 2856 pg/mL (0-125); Procalcitonin 0.11 ng/mL (0-0.5)
[2020-06-14 00:06] LABS: Add Urine Culture? No; Bacteria Urine TRACE /hpf; Squamous Epithelial Cell Urine 15-25 /hpf (0-5)
[2020-06-14 00:17] LABS: ABG PCO2 40.8 mmHg (35-45); ABG PH Result 7.36 (7.35-7.45); Arterial Blood Gas Hematocrit 51.2 % (37-47); Base Excess ABG -2.5 mmol/L (-2.0-2.0); Blood Gas Allen Test Pos; Blood Gas Operator Identificat HARKR; Blood Gas Sample Site Radial, left; Blood Gas Sample Type Arterial; HCO3 ABG 22.9 mmol/L (22-26); Oxygen Device NC
[2020-06-14 00:17] LABS: Alanine Aminotransferase 26 U/L (0-33); Albumin Level 3.6 g/dL (3.5-5.2); Alkaline Phosphatase 83 IU/L (35-105); Anion Gap 17.2 (5-19); Aspartate Amino Transferase 22 U/L (0-32); Blood Urea Nitrogen 34 mg/dL (8-23); C Reactive Protein 20.2 mg/L (0.0-4.9); Calcium 8.5 mg/dL (8.5-10.5); Carbon Dioxide 22 mmol/L (22-29); Chloride 103 mmol/L (98-107); Creatine Phosphokinase 38 U/L (26-192); Creatinine Clr Calc Pharmacy 45.4494; Globulin 2.6 g/dL (1.3-4.6); Glucose 137 mg/dL (65-115); Osmolality Calculated 296 mOsm/kg (285-295); Potassium 4.2 mmol/L (3.5-5.1); Sodium 138 mmol/L (136-145); Total Bilirubin 0.5 mg/dL (0.15-1.2); Total Protein 6.2 g/dL (6.6-8.7)
[2020-06-14] MEDS: FUROsemide 10 mg/mL SDV 10mL 80 MG IVP (00:22)
[2020-06-14] MEDS: metoprolol tartrate 1 mg/1 mL SDV 5 mL 2.5 MG IV (00:24)
--- NOTE | 2020-06-14 01:01 | W.ED.SOB ---
HPI - SOB/Dyspnea General: Chief Complaint: Shortness of Breath/Dyspnea Stated Complaint: sob and covid + Time Seen by Provider: 06/13/20 22:52 History of Present Illness: HPI Narrative: 65-year-old female diagnosed with Covid 1 week ago. She presents with shortness of breath at home. She states that she was sent home yesterday on 3 L of oxygen from the hospital. She has been getting shortness of breath with exertion at home. She is still coughing. She still has mild diarrhea, but her diarrhea is much improved from last week. MD elicited complaint: shortness of breath and cough Pertinent past history: COPD, congestive heart failure and diabetes Onset (ago): hour(s) Context: recent illness Timing: intermittent Severity: moderate Exacerbating factors: lying flat, exertion and coughing Known history of: congestive heart failure and diabetes Associated symptoms: Reports chest congestion, cough, diaphoresis, dizziness and fever(s); Deny abdominal pain, chest pain or vomiting Treatment prior to arrival: oxygen Review of Systems Const: Reports: fever(s) and diaphoresis Eyes: Denies: change in vision or blurry vision ENMT: Denies: odynophagia, swelling of lips/tongue, bleeding gums, dental pain, change in hearing, epistaxis, post nasal drip or sinus pain Card: Denies: chest pain Resp: Reports: chest congestion GI: Denies: abdominal pain or vomiting : Denies: dysuria, urinary frequency, urinary urgency or hematuria Musc: Denies: neck pain, back pain, joint redness or joint warmth Skin/Breast: Denies: rash, pruritus or erythema Neuro: Reports: dizziness Psych: Denies: anxiety, visual hallucinations or auditory hallucinations PFSH ED PFSH: Medical History (Updated 06/14/20 @ 02:57 by Thomas Hough DO) Atrial fibrillation CHF (congestive heart failure) Pt is wanting to wait for the Stress test till the VIrus is gone! Diabetes 1.5, managed as type 2 GERD (gastroesophageal reflux disease) Hypercholesteremia Hypertension Hypothyroid Mixed hyperlipidemia Type 2 diabetes mellitus with diabetic polyneuropathy Surgical History Hx laparoscopic cholecystectomy Hx of appendectomy Hx of cholecystectomy Hx of tubal ligation Family History Denies family history of Diabetes CAD (coronary artery disease) Clotting disorder Dementia Hyperlipidemia Psychiatric illness Chronic kidney disease (CKD) Suicide Anesthesia complication Bleeding disorder Family history of premature coronary artery disease Lung disease Cancer Hypertension Stroke Social History Smoking and tobacco status: current every day smoker cigarettes Alcohol intake: never Physical Exam Const: GENERAL APPEARANCE: well developed ORIENTATION/CONSCIOUSNESS: Yes oriented to person, Yes oriented to place and Yes oriented to time HENMT: COMMON NORMALS: normocephalic, external ears normal and Normal external nose present HEAD & SCALP: normocephalic FACE & SINUS: normal facial exam NOSE: Normal external nose present and No nasal discharge present EXTERNAL EAR: Yes external ears normal Eye: COMMON NORMALS: Equal, round and reactive pupils present, EOMs intact bilaterally and conjunctivae normal EYELID: eyelids normal CONJUNCTIVA: Yes conjunctivae normal PUPIL: Yes Equal, round and reactive pupils present Neck/C-Spine: GENERAL: No tracheal deviation Chest: COMMONS NORMALS: normal inspection of the chest CHEST: No tenderness Resp: COMMON NORMALS: negative for clear to auscultation bilaterally EFFORT & INSPECTION: No tachypneic, No respiratory distress, No retractions, No uses accessory muscles and No tracheal deviation AUSCULTATION: not clear to auscultation bilaterally, no rhonchi, wheezes and lung sounds not diminished Cardio: COMMON NORMALS: regular rate and regular rhythm RATE: regular rate RHYTHM: regular rhythm HEART SOUNDS: no murmurs PERIPHERAL PULSES: radial pulses present GI: INSPECTION: No abdominal distension AUSCULTATION: No Hyperactive bowel sounds present and No Hypoactive bowel sounds present PALPATION: No Guarding due to palpation present (GI) and No Rigid due to palpation PERCUSSION: no dullness to percussion and no tympanic to percussion Neuro: SENSORIUM/ORIENTATION: Yes oriented to person, Yes oriented to place and Yes oriented to time Psych: COMMON NORMALS: mental status grossly normal Skin: COMMON NORMALS: no rashes or lesions noted GENERAL SKIN EXAM: no rashes or lesions noted Course Vital Signs: Vital signs: Vital Signs Temperature 97.5 F L 06/13/20 23:39 Pulse Rate 103 H 06/14/20 03:45 Respiratory Rate 24 H 06/14/20 03:45 Blood Pressure 102/62 06/14/20 03:45 Pulse Oximetry 96 06/14/20 03:45 MDM - SOB/Dyspnea MDM Narrative: Medical decision making narrative: Saturations are normal on her home O2. White count is 10.6. Creatinine is 1.7 which is her baseline. She felt better after albuterol treatment. She has been given dexamethasone here. She will go home on albuterol treatments, and to continue her Omnicef. She knows to return if worsening. Lab Data: Labs: Lab Results 06/13/20 06/13/20 06/13/20 Range/Units 22:33 22:33 22:33 WBC 10.6 H (4.0-10.0) 10^3/ uL RBC 5.06 (4.1-5.3) 10^6/u L Hgb 15.2 (11.5-15.3) g/dL Hct 46.9 (37.0-47.0) % MCV 92.7 (81-99) fL MCH 30.0 (28.0-34.0) pg MCHC 32.4 (30.0-36.0) g/dL RDW 13.7 (12.1-15.1) % Plt Count 429 H (130-400) 10^3/c mm MPV 10.1 (7.4-10.4) fL Neut % (Auto) 66.7 % Lymph % (Auto) 21.2 % [place] % (Auto) 10.2 % Eos % (Auto) 0.3 % Baso % (Auto) 0.3 % Neut # (Auto) 7.10 (1.8-7.7) 10^3/u L Lymph # (Auto) 2.3 (0.8-4.8) 10^3/u L [place] # (Auto) 1.1 H (0.2-0.9) 10^3/u L Eos # (Auto) 0.0 (0.0-0.8) 10^3/u L Baso # (Auto) 0.0 (0.0-0.1) 10^3/u L Nucleated RBC % (a uto) 0 % Nucleated RBCs # 0.0 /100WBC Specimen Type Sample Site ABG pH (7.35-7.45) ABG pCO2 (35-45) mmHg ABG pO2 (80.0-100.0) mmH g ABG HCO3 (22-26) mmol/L ABG Base Excess (-2.0-2.0) mmol/ L Freedom Test Hematocrit (37-47) % O2 Delivery Device O2 Liters/Min % Lubricating Machine Tender ID Sodium 138 (136-145) mmol/L Potassium 4.2 (3.5-5.1) mmol/L Chloride 103 (98-107) mmol/L Carbon Dioxide 22 (22-29) mmol/L Anion Gap 17.2 (5-19) BUN 34 H (8-23) mg/dL Creatinine 1.7 H (0.5-0.9) mg/dL GFR Calculation 30.0 L (90-130) mL/min Glucose 137 H (65-115) mg/dL Calculated Osmolal ity 296 H (285-295) mOsm/k g Calcium 8.5 (8.5-10.5) mg/dL Total Bilirubin 0.5 (0.15-1.2) mg/dL AST 22 (0-32) U/L ALT 26 (0-33) U/L Alkaline Phosphata se 83 (35-105) IU/L Creatine Kinase 38 (26-192) U/L Troponin T Baselin e 28 H (0-10) ng/L C-Reactive Protein 20.2 H (0.0-4.9) mg/L NT-Pro-B Natriuret Pep 2856 H (0-125) pg/mL Total Protein 6.2 L (6.6-8.7) g/dL Albumin 3.6 (3.5-5.2) g/dL Globulin 2.6 (1.3-4.6) g/dL Procalcitonin 0.11 (0-0.5) ng/mL Urine Color (Yellow) Urine Appearance (CLEAR) Urine pH (5-7) Ur Specific Gravit y (1.005-1.030) Urine Protein (Negative) Urine Glucose (UA) (Normal) Urine Ketones (Negative) Urine Blood (Negative) Urine Nitrate (Negative) Urine Bilirubin (Negative) Urine Urobilinogen (Negative) mg/dL Ur Leukocyte [place] ase (Negative) Urine RBC (0-2) /hpf Urine WBC (0-5) /hpf Ur Squamous Epith Cells (0-5) /hpf Amorphous Sediment Urine Bacteria (NONE) /hpf 06/13/20 06/13/20 Range/Units 23:11 23:57 WBC (4.0-10.0) 10^3/ uL RBC (4.1-5.3) 10^6/u L Hgb (11.5-15.3) g/dL Hct (37.0-47.0) % MCV (81-99) fL MCH (28.0-34.0) pg MCHC (30.0-36.0) g/dL RDW (12.1-15.1) % Plt Count (130-400) 10^3/c mm MPV (7.4-10.4) fL Neut % (Auto) % Lymph % (Auto) % [place] % (Auto) % Eos % (Auto) % Baso % (Auto) % Neut # (Auto) (1.8-7.7) 10^3/u L Lymph # (Auto) (0.8-4.8) 10^3/u L [place] # (Auto) (0.2-0.9) 10^3/u L Eos # (Auto) (0.0-0.8) 10^3/u L Baso # (Auto) (0.0-0.1) 10^3/u L Nucleated RBC % (a uto) % Nucleated RBCs # /100WBC Specimen Type Arterial Sample Site Radial, left ABG pH 7.36 (7.35-7.45) ABG pCO2 40.8 (35-45) mmHg ABG pO2 100.0 (80.0-100.0) mmH g ABG HCO3 22.9 (22-26) mmol/L ABG Base Excess -2.5 L (-2.0-2.0) mmol/ L Freedom Test Pos Hematocrit 51.2 H (37-47) % O2 Delivery Device Nc O2 Liters/Min 3.0 % Lubricating Machine Tender ID Harkr Sodium (136-145) mmol/L Potassium (3.5-5.1) mmol/L Chloride (98-107) mmol/L Carbon Dioxide (22-29) mmol/L Anion Gap (5-19) BUN (8-23) mg/dL Creatinine (0.5-0.9) mg/dL GFR Calculation (90-130) mL/min Glucose (65-115) mg/dL Calculated Osmolal ity (285-295) mOsm/k g Calcium (8.5-10.5) mg/dL Total Bilirubin (0.15-1.2) mg/dL AST (0-32) U/L ALT (0-33) U/L Alkaline Phosphata se (35-105) IU/L Creatine Kinase (26-192) U/L Troponin T Baselin e (0-10) ng/L C-Reactive Protein (0.0-4.9) mg/L NT-Pro-B Natriuret Pep (0-125) pg/mL Total Protein (6.6-8.7) g/dL Albumin (3.5-5.2) g/dL Globulin (1.3-4.6) g/dL Procalcitonin (0-0.5) ng/mL Urine Color Yellow (Yellow) Urine Appearance Clear (CLEAR) Urine pH 5 (5-7) Ur Specific Gravit y 1.005 (1.005-1.030) Urine Protein Neg (Negative) Urine Glucose (UA) Norm (Normal) Urine Ketones Negative (Negative) Urine Blood 2+ H (Negative) Urine Nitrate Negative (Negative) Urine Bilirubin Neg (Negative) Urine Urobilinogen Norm (Negative) mg/dL Ur Leukocyte [place] ase 1+ H (Negative) Urine RBC 5-10 H (0-2) /hpf Urine WBC 5-10 H (0-5) /hpf Ur Squamous Epith Cells 15-25 H (0-5) /hpf Amorphous Sediment Not Reportable Urine Bacteria Trace (NONE) /hpf Discharge Plan Discharge Patient Disposition: Home Clinical Impression: Acute bronchitis due to 2019 novel coronavirus Condition: Stable Prescriptions: No Action metoprolol tartrate 50 mg tablet 25 mg PO BID@799,1999 RF: 0 potassium chloride 20 mEq tablet extended release 20 meq PO BID@799,1999 RF: 0 (DME) Diabetic Shoes Qty: 1 RF: 0 furosemide 40 mg tablet 60 mg PO BID@799,1999 RF: 0 metformin 500 mg tablet 500 mg PO BID@799,1999 RF: 0 levothyroxine 50 mcg tablet 50 mcg PO DAILY@0800 RF: 0 lisinopril 5 mg tablet 5 mg PO DAILY@0800 RF: 0 rivaroxaban 20 mg tablet 20 mg PO DAILY@0800 RF: 0 cholecalciferol (vitamin D3) 125 mcg (5,000 unit) Tablet 5,000 unit PO DAILY Qty: 30 RF: 0 cefdinir 300 mg capsule 300 mg PO BID 5 Days Qty: 6 RF: 0 Discharge Orders: Discharge ED (Routine); Ordered 06/14/20 Ordered By: Thomas Hough Referrals: Anna Kaufman MD [Primary Care Provider] - 4-7 days Discharge Diet: Advance as tolerated Discharge Activity: Limit activity as instructed Patient Instructions: Acute Bronchitis (ED) Activity Restrictions/Additional Instructions: Use the inhaler you were given every 4 hours while awake for the next 48 hours, then as needed continue to use your oxygen at 3 L per return for worsening shortness of breath despite treatment, worsening chest discomfort, continued fevers, worsening diarrhea, any other concerning symptoms Coding Level of Care Code ED [place] Technician for Irving Rosario
[2020-06-14 01:05] VITALS: BP 87/60; PULSE 897; O2SAT 97
--- NOTE | 2020-06-14 01:25 | ECG_ITS ---
[facility] Test Date: 2020-06-14 Pat Name: Mavis Joseph Department: Room: Gender: Female Product Grader: : 1955 Requested By: Thomas Ayala Order Number: [id number] Reading MD: YOHAN GALLEGO Measurements Intervals [place] Rate: 95 P: DC: QRS: 73 QRSD: 92 T: -10 QT: 354 QTc: 445 Interpretive Statements ATRIAL FIBRILLATION NONSPECIFIC ST & T-WAVE ABNORMALITY Compared to ECG 06/13/2020 23:47:06 T-wave abnormality now present ST (T wave) deviation no longer present Electronically Signed On 06-14-2020 18:47:41 PELT SHEARER by YOHAN GALLEGO [email or web address] [id number]
[2020-06-14 02:05] VITALS: BP 139/107; PULSE 91; O2SAT 96
[2020-06-14] MEDS: dexamethasone 4 mg/mL INJ 6 MG IVP (03:06)
[2020-06-14 03:07] VITALS: PULSE 86; RESP 18; O2SAT 96
[2020-06-14] MEDS: albuterol 8 gm MDI 2 PUFF INHALATION (03:07)
[2020-06-14 03:12] VITALS: PULSE 91
[2020-06-14 03:45] VITALS: BP 102/62; PULSE 103; RESP 24; O2SAT 96
== END 2020-06-14 03:45 | disposition home or self-care (01) ==
PROVIDERS: Emergency Provider Emergency Medicine; PCP Family Medicine
DX: U07.1 COVID-19 (principal); J20.8 Acute bronchitis due to other specified organisms; Z79.84 Long term (current) use of oral hypoglycemic drugs; I48.91 Unspecified atrial fibrillation; I11.0 Hypertensive heart disease with heart failure; I50.9 Heart failure, unspecified; E78.2 Mixed hyperlipidemia; F17.210 Nicotine dependence, cigarettes, uncomplicated; E13.42 Other specified diabetes mellitus with diabetic polyneuropathy
CPT/HCPCS: 36600; 71045; 80053; 81001; 82550; 82803; 83880; 84145; 84484; 85025; 86140; 87040; 93005; 94640; 96374; 96375; 99284; J1100; J1940; J3490; J3535

== ENCOUNTER → 2020-07-23 11:29 | Outpatient (BNVA) | payer MEDICARE, MEDICAID, SELFPAY | PROVIDERS: PCP Family Medicine; Visit Provider Family Medicine | DX: I48.0 Paroxysmal atrial fibrillation (principal); I50.32 Chronic diastolic (congestive) heart failure; E03.9 Hypothyroidism, unspecified; E13.9 Other specified diabetes mellitus without complications; Z72.0 Tobacco use | CPT/HCPCS: 80048; 84443 ==

== ENCOUNTER → 2020-09-01 10:39 | Outpatient (BNVA) | payer MEDICARE, MEDICAID, SELFPAY | PROVIDERS: PCP Family Medicine; Visit Provider Family Medicine | DX: I48.0 Paroxysmal atrial fibrillation (principal); I50.32 Chronic diastolic (congestive) heart failure; I95.9 Hypotension, unspecified; J96.01 Acute respiratory failure with hypoxia; I11.0 Hypertensive heart disease with heart failure | CPT/HCPCS: 80048 ==

== ENCOUNTER → 2020-10-02 12:01 | Outpatient (BNVA) | payer MEDICARE, MEDICAID, SELFPAY | PROVIDERS: PCP Family Medicine; Visit Provider Internal Medicine Nephrology | DX: N28.9 Disorder of kidney and ureter, unspecified (principal) | CPT/HCPCS: 80069; 82043 ==

== ENCOUNTER → 2020-12-23 12:25 | Outpatient (BNVA) | payer MEDICARE, MEDICAID, SELFPAY | PROVIDERS: PCP Family Medicine; Visit Provider Family Medicine | DX: E13.9 Other specified diabetes mellitus without complications (principal); M51.16 Intervertebral disc disorders with radiculopathy, lumbar region; L91.8 Other hypertrophic disorders of the skin; I48.0 Paroxysmal atrial fibrillation; E03.9 Hypothyroidism, unspecified | CPT/HCPCS: 80048; 83036; 84443 ==

== ENCOUNTER → 2021-01-13 11:27 | Outpatient (BNVA) | payer MEDICARE, MEDICAID, SELFPAY | PROVIDERS: PCP Family Medicine; Visit Provider Family Medicine | DX: N17.9 Acute kidney failure, unspecified (principal); N18.31 Chronic kidney disease, stage 3a; M51.16 Intervertebral disc disorders with radiculopathy, lumbar region; I48.0 Paroxysmal atrial fibrillation; E11.42 Type 2 diabetes mellitus with diabetic polyneuropathy; E11.22 Type 2 diabetes mellitus with diabetic chronic kidney disease | CPT/HCPCS: 80048 ==

== ENCOUNTER → 2021-01-27 13:36 | Outpatient (BNVA) | payer MEDICARE, MEDICAID, SELFPAY | PROVIDERS: PCP Family Medicine; Visit Provider Family Medicine | DX: I50.32 Chronic diastolic (congestive) heart failure (principal) | CPT/HCPCS: 80048 ==

== ENCOUNTER → 2021-04-30 10:44 | Outpatient (BNVA) | payer MEDICARE, MEDICAID, SELFPAY | PROVIDERS: PCP Family Medicine; Visit Provider Family Medicine | DX: Z20.822 Contact with and (suspected) exposure to COVID-19 (principal); R50.9 Fever, unspecified | CPT/HCPCS: 87635 ==

== ENCOUNTER → 2021-06-09 12:37 | Outpatient (BNVA) | payer MEDICARE, MEDICAID, SELFPAY | PROVIDERS: PCP Family Medicine; Visit Provider Family Medicine | DX: E03.9 Hypothyroidism, unspecified (principal) | CPT/HCPCS: 80048; 84443 ==

== ENCOUNTER → 2021-07-27 11:58 | Outpatient (BNVA) | payer MEDICARE, MEDICAID, SELFPAY | PROVIDERS: PCP Family Medicine; Visit Provider Family Medicine | DX: Z00.00 Encounter for general adult medical examination without abnormal findings (principal); N18.9 Chronic kidney disease, unspecified; N17.9 Acute kidney failure, unspecified | CPT/HCPCS: 80048 ==

== ENCOUNTER 2021-08-25 20:50 | Emergency (ER) | payer MEDICARE, MEDICAID, SELFPAY ==
[2021-08-25 20:56] VITALS: BP 118/74; PULSE 95; RESP 20; TEMP 37.6; O2SAT 95; BMI 26.4
--- NOTE | 2021-08-25 21:36 | ECG_ITS ---
[facility] Test Date: 2021-08-25 Pat Name: Mavis Joseph Department: Room: Gender: Female Devops Consultant: : 1955 Requested By: Rudy Machado Order Number: [id number] Lillian MD: Khris Armas M.D. Measurements Intervals [place] Rate: 72 P: NC: QRS: 64 QRSD: 104 T: 31 QT: 399 QTc: 439 Interpretive Statements ATRIAL FIBRILLATION Compared to ECG 06/14/2020 02:18:45 T-wave abnormality no longer present Electronically Signed On 08-25-2021 23:07:11 CDT by Khris Armas M.D. [id number]
--- NOTE | 2021-08-25 22:09 | ED_ITS ---
HPI - Overdose General: Chief Complaint: Overdose Stated Complaint: took day an night meds Time Seen by Provider: 08/25/21 22:08 History of Present Illness: Ms. Joseph is a 66-year-old lady with significant past medical history of diabetes, hypertension, hyperlipidemia, CHF, hypothyr oidism, A. fib, CKD presenting to the emergency department due to concern over medication error. She reports largely being at her baseline health and due to not being attention when grabbing her pill packages she accidentally took her morning dose of medications for tomorrow this evening. This occurred approximately 7:30 PM and she has largely been asymptomatic. Of her medications that she should not have a problem with with the Cardizem and metoprolol which she should take the ID however her Xarelto, spironolactone, lisinopril, levothyroxine are all once daily. As she has no symptoms there is no intensity or characteristic. No other specific changes in health, exacerbating, or alleviating factors identified. Onset (ago): hour(s) Review of Systems General: Reports: 10 or more systems reviewed and unremarkable except in HPI and below PFSH ED PFSH: Medical History Atrial fibrillation CHF (congestive heart failure) Pt is wanting to wait for the Stress test till the VIrus is gone! Diabetes 1.5, managed as type 2 GERD (gastroesophageal reflux disease) Hypercholesteremia Hypertension Hypothyroid Lumbar disc disease with radiculopathy Mixed hyperlipidemia Nicotine abuse Skin tag, acquired Type 2 diabetes mellitus with diabetic polyneuropathy Venous insufficiency of both lower extremities Surgical History Hx laparoscopic cholecystectomy Hx of appendectomy Hx of cholecystectomy Hx of tubal ligation Family History Denies family history of Diabetes CAD (coronary artery disease) Clotting disorder Dementia Hyperlipidemia Psychiatric illness Chronic kidney disease (CKD) Suicide Anesthesia complication Bleeding disorder Family history of premature coronary artery disease Lung disease Cancer Hypertension Stroke Social History Alcohol intake: never Physical Exam Const: COMMON NORMALS: alert GENERAL APPEARANCE: cooperative and well developed HENMT: COMMON NORMALS: normocephalic and atraumatic HEAD & SCALP: normocephalic and atraumatic Eye: COMMON NORMALS: conjunctivae normal CONJUNCTIVA: Yes conjunctivae normal SCLERA: sclerae normal Neck/C-Spine: COMMON NORMALS: supple GENERAL: Yes trachea midline Resp: COMMON NORMALS: normal respiratory effort EFFORT & INSPECTION: Yes able to speak in complete sentences Cardio: COMMON NORMALS: regular rate RATE: regular rate RHYTHM: abnormal rhythm irregularly irregular GI: COMMON NORMALS: Soft to palpation PALPATION: Yes Soft to palpation and No Tenderness to palpation present (GI) PERCUSSION: normal to percussion Extremity: GENERAL: Yes normal exam except as noted and No edema Neuro: COMMON NORMALS: moves all extremities SENSORIUM/ORIENTATION: Yes alert and No Orientation impaired Psych: COMMON NORMALS: mental status grossly normal and Normal thought process present THOUGHT PROCESS: Normal thought process present Course Vital Signs: Vital signs: Vital Signs Temperature 99.6 F 08/25/21 20:56 Pulse Rate 73 08/25/21 23:36 Respiratory Rate 19 H 08/25/21 23:36 Blood Pressure 94/68 08/25/21 23:36 Pulse Oximetry 96 08/25/21 23:36 MDM - Overdose Medical Decision Making 66-year-old lady presenting to the emergency department due to accidentally taking her morning medications again this evening. Patient is asymptomatic. Discussed with poison control. Patient to hold morning dose of Xarelto and then resume normal schedule. All other medications resume as normally. Satisfactory for outpatient management. Medical Records I reviewed the patient's medical records. Lab Data I reviewed the patient's lab results. EKG Data EKG 1: I personally reviewed and interpreted this EKG as follows: EKG interpretation date: 08/25/21 EKG interpretation time: 22:32 Interpretation: Twelve-lead EKG shows an irregular rhythm at a rate of 72. WA interval not present, QRS duration 104, QTc 424. Normal axis. Interpretation: Atrial fibrillation rhythm. Discharge Plan Discharge Patient Disposition: Home Clinical Impression: Accidental medication overdose Condition: Stable Prescriptions: No Action (DME) Diabetic Shoes See Rx Instructions .ROUTE .MEDSUPPLY Qty: 1 0RF Rx Instructions: As directed, HOME with 3 pairs of inserts potassium chloride 20 mEq tablet extended release 20 meq PO TID 30 Days Qty: 90 5RF lisinopril 5 mg tablet 5 mg PO DAILY@0800 Qty: 90 2RF albuterol sulfate [ProAir HFA] 90 mcg/actuation HFA aerosol inhaler 2 puff inhalation QID 30 Days Qty: 8.5 5RF levothyroxine [Levo-T] 100 mcg tablet 100 mcg PO DAILY 90 Days Qty: 90 0RF metoprolol tartrate 25 mg tablet See Rx Instructions .ROUTE .COMPLEX Qty: 90 1RF Dose Instruction: Take 1/2 (one-half) tablet by mouth twice daily Rx Instructions: Take 1/2 (one-half) tablet by mouth twice daily amiodarone [Pacerone] 100 mg tablet See Rx Instructions .ROUTE .COMPLEX Qty: 180 1RF Dose Instruction: Take 1 tablet by mouth twice daily Rx Instructions: Take 1 tablet by mouth twice daily spironolactone 25 mg tablet See Rx Instructions .ROUTE .COMPLEX Qty: 30 2RF Dose Instruction: TAKE 1 TABLET BY MOUTH ONCE DAILY FOR SWELLING Rx Instructions: TAKE 1 TABLET BY MOUTH ONCE DAILY FOR SWELLING rivaroxaban 20 mg tablet 20 mg PO DAILY@0800 Qty: 90 1RF Rx Instructions: Must be seen for further refills hydrocodone-acetaminophen 7.5-325 mg tablet 1 tab PO Q12H PRN (Reason: pain) 30 Days Qty: 60 0RF Rx Instructions: 30 day supply. cholecalciferol (vitamin D3) 125 mcg (5,000 unit) Tablet 5,000 unit PO DAILY Qty: 30 0RF Discharge Orders: Discharge ED (Routine); Ordered 08/25/21 Ordered By: Rudy Machado Referrals: Anna Kaufman MD [Primary Care Provider] - Discharge Diet: Usual diet Discharge Activity: Increase activity as tolerated Activity Restrictions/Additional Instructions: Thank you for visiting the emergency department. You were seen and evaluated for accidental medication overdose. As discussed, please do not take your Xarelto dose on 08/26 however resume your other medications and then you may resume your Xarelto on 08/27. Please follow-up with your primary care provider. Return to the emergency department for anything that you are concerned about and feel needs ED evaluation. Coding Level of Care Code ED [employer] Parts Cutter for Irving Rosario
[2021-08-25 22:25] VITALS: BP 105/63; PULSE 97; RESP 18; O2SAT 92
[2021-08-25 23:00] VITALS: BP 113/65; PULSE 82; RESP 24; O2SAT 94
[2021-08-25 23:36] VITALS: BP 94/68; PULSE 73; RESP 19; O2SAT 96
== END 2021-08-25 23:25 | disposition home or self-care (01) ==
PROVIDERS: Emergency Provider Emergency Medicine; PCP Family Medicine
DX: T45.511A Poisoning by anticoagulants, accidental (unintentional), initial encounter (principal); T46.4X1A Poisoning by angiotensin-converting-enzyme inhibitors, accidental (unintentional), initial encounter; T38.1X1A Poisoning by thyroid hormones and substitutes, accidental (unintentional), initial encounter; I48.91 Unspecified atrial fibrillation
CPT/HCPCS: 93005; 99283

== ENCOUNTER → 2021-12-08 10:44 | Outpatient (BNVA) | payer MEDICARE, MEDICAID, SELFPAY | PROVIDERS: PCP Family Medicine; Visit Provider Podiatrist Foot & Ankle Surgery | DX: E11.8 Type 2 diabetes mellitus with unspecified complications (principal); E11.42 Type 2 diabetes mellitus with diabetic polyneuropathy; L84 Corns and callosities; I73.9 Peripheral vascular disease, unspecified; L60.3 Nail dystrophy | CPT/HCPCS: 11055; 11721 ==

== ENCOUNTER → 2021-12-21 08:49 | Outpatient (BNVA) | payer MEDICARE, MEDICAID, SELFPAY | PROVIDERS: PCP Family Medicine; Visit Provider Family Medicine | DX: N18.32 Chronic kidney disease, stage 3b (principal); E03.9 Hypothyroidism, unspecified; E13.9 Other specified diabetes mellitus without complications; I48.0 Paroxysmal atrial fibrillation; N17.9 Acute kidney failure, unspecified; N18.9 Chronic kidney disease, unspecified | CPT/HCPCS: 80053; 82043; 82310; 83036; 83970; 84100; 84443; 85025 ==

== ENCOUNTER 2022-01-05 08:31 | Outpatient (CLI) | payer MEDICARE, MEDICAID, SELFPAY ==
[2022-01-05 09:15] LABS: Basophils # 0.1 10^3/uL (0.0-0.1); Basophils % 0.6 %; Eosinophils # 0.2 10^3/uL (0.0-0.8); Eosinophils % 2.2 %; Hematocrit 40.5 % (37.0-47.0); Lymphocytes # 1.9 10^3/uL (0.8-4.8); Lymphocytes % 17.8 %; Mean Corpuscular HGB Conc 32.1 g/dL (30.0-36.0); Mean Corpuscular Hemoglobin 32.3 pg (28.0-34.0); Mean Corpuscular Volume 100.5 fl (81-99); Mean Platelet Volume 9.9 fL (7.4-10.4); Monocytes # 0.6 10^3/uL (0.2-0.9); Monocytes % 5.7 %; Neutrophils # 7.84 10^3/uL (1.8-7.7); Neutrophils % 73.4 %; Nucleated Red Blood Cells % 0 %; Platelet Count 313 10^3/cmm (130-400); Red Blood Count 4.03 10^6/uL (4.1-5.3); Red Cell Distribution Width 13.8 % (12.1-15.1); White Blood Count 10.7 10^3/uL (4.0-10.0)
[2022-01-05 09:38] LABS: Anion Gap 15.4 (5-19); Blood Urea Nitrogen 46 mg/dL (8-23); Calcium 9.5 mg/dL (8.5-10.5); Carbon Dioxide 24 mmol/L (22-29); Chloride 101 mmol/L (98-107); Glomerular Filtration Rate 13.4 mL/min (90-130); Glucose 126 mg/dL (65-115); Osmolality Calculated 295 mOsm/kg (285-295); Potassium 4.4 mmol/L (3.5-5.1); Sodium 136 mmol/L (136-145)
[2022-01-05 09:39] LABS: Albumin Level 3.6 g/dL (3.5-5.2); Anion Gap 15.5 (5-19); Blood Urea Nitrogen 45 mg/dL (8-23); Calcium 9.5 mg/dL (8.5-10.5); Carbon Dioxide 24 mmol/L (22-29); Chloride 102 mmol/L (98-107); Glomerular Filtration Rate 13.9 mL/min (90-130); Glucose 127 mg/dL (65-115); Phosphorus 3.4 mg/dL (2.5-4.5); Potassium 4.5 mmol/L (3.5-5.1); Sodium 137 mmol/L (136-145)
[2022-01-05 09:53] LABS: Calcium 9.5 mg/dL (8.5-10.5)
[2022-01-05 09:54] LABS: 25 Hydroxy Vitamin D 69 ng/mL (30-100)
[2022-01-05 10:02] LABS: Add Urine Microscopic? YES; Bilirubin Urine Neg (Negative); Blood Urine Neg (Negative); Glucose Urine UA Norm (Normal); Ketones Urine Negative (Negative); Leukocyte Esterase Urine 1+ (Negative); Nitrate Urine Negative (Negative); Protein Urine Neg (Negative); Urine Appearance Clear (CLEAR); Urine Color Yellow (Yellow); Urobilinogen Urine Norm (Negative); pH Urine 5 (5-7)
[2022-01-05 10:04] LABS: Add Urine Culture? No; Bacteria Urine 1+ /hpf; Squamous Epithelial Cell Urine 0-4 /hpf (0-5)
[2022-01-05 10:14] LABS: Creatinine Urine, Random 222 mg/dL (28-217); Microalbum Creatinine Ratio Ur 5 mg/dL (0-20); Microalbumin Random Urine 1 ug/dL (0-20)
[2022-01-05 10:33] LABS: Parathyroid Hormone 205.4 pg/mL (15-65)
[2022-01-06 11:42] LABS: PROTEIN, TOTAL 6.4 g/dL (6.1-8.1)
[2022-01-06 15:16] LABS: ALBUMIN 3.3 g/dL (3.8-4.8); ALPHA 1 GLOBULIN 0.4 g/dL (0.2-0.3); BETA 1 GLOBULIN 0.4 g/dL (0.4-0.6); BETA 2 GLOBULIN 0.4 g/dL (0.2-0.5); GAMMA GLOBULIN 0.8 g/dL (0.8-1.7)
== END 2022-01-05 08:32 | disposition home or self-care (01) ==
LOC: LAB 08:38
PROVIDERS: PCP Family Medicine; Visit Provider Internal Medicine Nephrology
DX: N18.32 Chronic kidney disease, stage 3b (principal)
CPT/HCPCS: 36415; 80048; 80069; 81001; 82044; 82306; 82310; 83970; 84155; 84165; 85025

== ENCOUNTER → 2022-01-25 09:31 | Outpatient (BNVA) | payer MEDICARE, MEDICAID, SELFPAY | PROVIDERS: PCP Family Medicine; Visit Provider Family Medicine | DX: N18.32 Chronic kidney disease, stage 3b (principal) | CPT/HCPCS: 80069; 82043; 82310; 83970; 85025 ==

== ENCOUNTER 2022-02-09 11:46 | Emergency (ER) | payer MEDICARE, MEDICAID, SELFPAY ==
[2022-02-09 11:56] VITALS: BP 143/81; PULSE 88; RESP 16; TEMP 36.6; O2SAT 96
--- NOTE | 2022-02-09 12:12 | ED_ITS ---
HPI - Extremity Problem General: Chief complaint: Extremity Injury, Upper Stated complaint: animal bite/scratch Time Seen by Provider: 02/09/22 12:04 History of Present Illness: Patient is a 66-year-old female who comes to the ED with hand injury. Hand injury occurred just prior to arrival. She was trying to put her house cat into pet taxi and the cat scratched fingers on left hand. Multiple superficial small lacerations on fingers. Bleeding was controlled with pressure bandage. Cat has had all of its vaccinations including rabies. Associated symptoms: Deny chest pain, fever(s) or rash Review of Systems Const: Denies: fever(s), chills or fatigue Eyes: Denies: change in vision or eye discomfort ENMT: Denies: throat pain, odynophagia, nasal discharge or nasal congestion Card: Denies: chest pain, palpitations, edema, swelling of feet/ankles, dyspnea on exertion or orthopnea Resp: Denies: dyspnea, productive cough or non-productive cough GI: Denies: abdominal pain, nausea, vomiting, diarrhea, constipation or hematochezia : Denies: flank pain, dysuria or hematuria Musc: Denies: neck pain, back pain or extremity swelling Skin/Breast: Reports: new lesions (Multiple lacerations to fingers of left hand.); Denies: rash Neuro: Denies: headache(s), numbness in extremities or weakness in extremities PFSH ED PFSH: Medical History Atrial fibrillation CHF (congestive heart failure) Pt is wanting to wait for the Stress test till the VIrus is gone! Diabetes 1.5, managed as type 2 GERD (gastroesophageal reflux disease) Hypercholesteremia Hypertension Hypothyroid Lumbar disc disease with radiculopathy Mixed hyperlipidemia Nicotine abuse Skin tag, acquired Type 2 diabetes mellitus with diabetic polyneuropathy Venous insufficiency of both lower extremities Surgical History Hx laparoscopic cholecystectomy Hx of appendectomy Hx of cholecystectomy Hx of tubal ligation Family History Denies family history of Diabetes CAD (coronary artery disease) Clotting disorder Dementia Hyperlipidemia Psychiatric illness Chronic kidney disease (CKD) Suicide Anesthesia complication Bleeding disorder Family history of premature coronary artery disease Lung disease Cancer Hypertension Stroke Social History Smoking and tobacco status: former smoker Alcohol intake: never Physical Exam Const: COMMON NORMALS: patient oriented x3 and alert GENERAL APPEARANCE: cooperative and comfortable HENMT: COMMON NORMALS: normocephalic HEAD & SCALP: normocephalic MOUTH: Normal oral and palatal mucosa present THROAT: posterior oropharynx normal and uvula midline Neck/C-Spine: COMMON NORMALS: supple GENERAL: Yes normal visual inspection Resp: COMMON NORMALS: normal respiratory effort, No retractions, No use of accessory muscles and clear to auscultation bilaterally AUSCULTATION: clear to auscultation bilaterally Cardio: COMMON NORMALS: regular rate, regular rhythm, S1 normal heart sound present, S2 normal heart sound present, No gallops present (Cardio), No clicks present (Cardio), No murmurs present (Cardio) and Peripheral pulses 2+ throughout RATE: regular rate RHYTHM: regular rhythm HEART SOUNDS: S1 normal heart sound present and S2 normal heart sound present PERIPHERAL PULSES: Peripheral pulses 2+ throughout GI: COMMON NORMALS: Normal to inspection, nondistended, normoactive bowel sounds present, Soft to palpation, non-tender and no masses PALPATION: Yes Soft to palpation : COMMON NORMALS: Yes no CVA tenderness BLADDER/KIDNEY EXAM: Yes no CVA tenderness Back/Pelvis: COMMON NORMALS: no CVA tenderness Extremity: NARRATIVE EXTREMITY EXAM: Multiple superficial linear lacerations on left hand?she has 1 small flap-like laceration that is 1 cm in length. Neuro: COMMON NORMALS: patient oriented x3 SENSORIUM/ORIENTATION: Yes alert GAIT: Yes Normal gait present Skin: GENERAL SKIN EXAM: dry skin Procedures Laceration Laceration 1: Site: hand (4th digit of left hand) Side (If applicable): left Size (cm): 1 Description: flap Depth: simple, single layer Local Anesthetic: lidocaine 1% Amount of anesthesia used (mL): 3 Pre-repair: irrigated extensively (With normal saline and beta iodine) Skin layer closed with: nylon Size (cm): 4-0 Number of sutures: 1 Technique: simple, interrupted Course Vital Signs: Vital signs: Vital Signs Temperature 97.8 F 02/09/22 14:15 Pulse Rate 77 02/09/22 14:15 Respiratory Rate 17 02/09/22 14:15 Blood Pressure 104/69 02/09/22 14:15 Pulse Oximetry 92 02/09/22 14:15 Oxygen Delivery Me thod 02/09/22 11:56 MDM - Extremity (Nontraumatic) Medical Decision Making Patient is a 58-year-old female comes to the ED with multiple cat scratch lacerations to fingers on left hand. She was given updated tetanus here in the ED. Cat had received all its vaccinations including rabies. She has multiple small superficial lacerations. Nurse irrigated lacerations with normal saline and beta iodine. She has 1 flap-like laceration on fourth digit. lidocaine 1% was used as local and I placed a suture into partially close flap-like laceration. See procedure note for details. She was instructed on how to care for the the laceration sites. She was discharged home with a prescription for Augmentin and azithromycin. Have sutures removed in 7 days. Return to ED precautions given. Patient understood and agreed with plan. Discharge Plan Discharge Patient Disposition: Home Clinical Impression: Cat scratch of left hand Qualifiers: Encounter type: initial encounter Qualified Code(s): S60.512A - Abrasion of left hand, initial encounter Laceration of multiple sites of left hand and fingers Qualifiers: Encounter type: initial encounter Qualified Code(s): S61.412A - Laceration without foreign body of left hand, initial encounter Condition: Stable Prescriptions: New amoxicillin-pot clavulanate 500-125 mg tablet 1 tab PO BID 7 Days Qty: 14 0RF azithromycin 250 mg tablet See Rx Instructions .ROUTE .COMPLEX Qty: 6 0RF Rx Instructions: For 250 mg dose pack: take 500 mg today (day 1), then 250 mg for 4 days (days 2-5) No Action (DME) Diabetic Shoes See Rx Instructions .ROUTE .MEDSUPPLY Qty: 1 0RF Rx Instructions: As directed, HOME with 3 pairs of inserts amiodarone [Pacerone] 100 mg tablet See Rx Instructions .ROUTE .COMPLEX Qty: 180 1RF Dose Instruction: Take 1 tablet by mouth twice daily Rx Instructions: Take 1 tablet by mouth twice daily metoprolol tartrate 25 mg tablet See Rx Instructions .ROUTE .COMPLEX Qty: 90 1RF Dose Instruction: Take 1/2 (one-half) tablet by mouth twice daily Rx Instructions: Take 1/2 (one-half) tablet by mouth twice daily potassium chloride 20 mEq tablet extended release 20 meq PO TID 30 Days Qty: 90 5RF levothyroxine 100 mcg tablet See Rx Instructions .ROUTE .COMPLEX Qty: 90 1RF Dose Instruction: Take 1 tablet by mouth once daily Rx Instructions: Take 1 tablet by mouth once daily furosemide 40 mg tablet 60 mg PO BID@0800,1999 Qty: 240 1RF Rx Instructions: Must be seen for further refills albuterol sulfate [ProAir HFA] 90 mcg/actuation HFA aerosol inhaler 2 puff inhalation QID 30 Days Qty: 8.5 5RF spironolactone 25 mg tablet See Rx Instructions .ROUTE .COMPLEX Qty: 30 4RF Dose Instruction: TAKE 1 TABLET BY MOUTH ONCE DAILY FOR SWELLING Rx Instructions: TAKE 1 TABLET BY MOUTH ONCE DAILY FOR SWELLING lisinopril 5 mg tablet 5 mg PO DAILY@0800 Qty: 90 2RF rivaroxaban 20 mg tablet 20 mg PO DAILY@0800 Qty: 30 0RF hydrocodone-acetaminophen 7.5-325 mg tablet 1 tab PO Q12H PRN (Reason: pain) 30 Days Qty: 60 0RF Rx Instructions: 30 day supply. cholecalciferol (vitamin D3) 125 mcg (5,000 unit) Tablet 5,000 unit PO DAILY Qty: 30 0RF Discharge Orders: Discharge ED (Routine); Ordered 02/09/22 Ordered By: Jamie Bonilla Referrals: Anna Kaufman MD [Primary Care Provider] - Discharge Diet: Regular Discharge Activity: Increase activity as tolerated Patient Instructions: Finger Laceration (ED) Activity Restrictions/Additional Instructions: Take full course of antibiotics as prescribed. Keep laceration site clean and dry. Clean daily with soap and water and then apply thin layer of triple antibiotic ointment on it and cover with bandage. Watch for signs of infection such as redness, warmth, increased tenderness and puslike drainage. If you see the signs of infection return to the ED, urgent care or PCP for reevaluation. call your PCP to schedule a follow-up appointment for reevaluation and suture removal in about 7 days. Continue taking all home meds. Follow discharge plans as discussed. You can return to the ED if symptoms worsen. Coding Level of Care Code ED Bracelet Former for Irving Fwshay Exam Comprehensive
[2022-02-09] MEDS: lidocaine 1% INJ 20 mL MDV (mL) 5 ML INJECTION (12:29)
[2022-02-09] MEDS: tetanus-dipt-pertussis 0.5 mL SDV IM (13:19)
[2022-02-09] MEDS: neomycin-poly-bacitracin oint 28 gm 1 APPLIC TOPICAL (14:03)
[2022-02-09 14:15] VITALS: BP 104/69; PULSE 77; RESP 17; TEMP 36.6; O2SAT 92
== END 2022-02-09 14:18 | disposition home or self-care (01) ==
PROVIDERS: Emergency Provider Physician Assistant; PCP Family Medicine
DX: S61.412A Laceration without foreign body of left hand, initial encounter (principal); S60.512A Abrasion of left hand, initial encounter; W55.03XA Scratched by cat, initial encounter; I11.0 Hypertensive heart disease with heart failure; I50.9 Heart failure, unspecified; E11.9 Type 2 diabetes mellitus without complications; E78.2 Mixed hyperlipidemia; Z87.891 Personal history of nicotine dependence; Z23 Encounter for immunization
CPT/HCPCS: 12001; 90471; 90715; 99284

== ENCOUNTER 2022-02-26 09:11 | Outpatient (CLI) | payer MEDICARE, MEDICAID, SELFPAY ==
--- NOTE | 2022-02-26 09:21 | US_ITS ---
WS: [id number] RENAL ULTRASOUND HISTORY: STAGE 5 CHRONIC KIDNEY DZ COMPARISON: None available. TECHNIQUE: 2-D and color Doppler imaging of the kidney submitted. Quality of this examination is compromised by body habitus. Right kidney: 9.7 cm x 5.9 cm x 2.9 cm. Kidney is normal size. Mild cortical thinning. No hydronephrosis. There is a hypoechoic area along th e medial RIGHT kidney measuring 2.0 x 2.4 x 1.3 cm. Left kidney: 12.7 cm x 7.0 cm x 6.3 cm. Poorly visualized kidney. No obstruction. Aorta: Normal. Urinary Bladder: Not visualized. US/US renal BI* [id number] IMPRESSION: 1. Significantly degraded quality due to patient body habitus. 2. No hydronephrosis. 3. Cortical thinning RIGHT kidney is new since 06/07/2020. 4. Hypoechoic nodule measuring 2.4 cm RIGHT kidney. Cannot further classify on this study. This could be a complex cyst or renal mass. Consider follow-up letty al mass CT protocol.
== END 2022-02-26 09:12 | disposition home or self-care (01) ==
LOC: RAD 09:11
PROVIDERS: PCP Family Medicine; Visit Provider Registered Nurse
DX: N18.5 Chronic kidney disease, stage 5 (principal)
CPT/HCPCS: 76770

== ENCOUNTER 2022-03-16 13:30 | Emergency (ER) | payer MEDICARE, MEDICAID, SELFPAY ==
[2022-03-16 13:35] VITALS: BP 133/77; PULSE 89; RESP 18; TEMP 36.1; O2SAT 92
--- NOTE | 2022-03-16 13:59 | XRR_ITS ---
PROCEDURE INFORMATION: Exam: XR Chest Exam date and time: 03/16/2022 2:03 PM Age: 66 years old Clinical indication: Shortness of breath; Additional info: SOB TECHNIQUE: Imaging protocol: Radiologic exam of the chest. Views: 2 views. COMPARISON: CR XR chest 1V portable [id number] 06/13/2020 11:32 PM FINDINGS: Lungs: Unremarkable. No consolidation. Pleural spaces: Unremarkable. No pleural effusion. No pneumothorax. Heart/Mediastinum: Unremarkable. No cardiomegaly. Bones/joints: Unremarkable. XR/XR chest 2V* [id number] IMPRESSION: No acute findings.
[2022-03-16 14:37] LABS: Influenza A by IFA negative (Negative); Influenza B by IFA negative (Negative)
--- NOTE | 2022-03-16 14:40 | ED_ITS ---
HPI - SOB/Dyspnea General: Chief Complaint: Shortness of Breath/Dyspnea Stated Complaint: fever, sore throat, chills Time Seen by Provider: 03/16/22 13:41 History of Present Illness: HPI Narrative: Patient is in today for fever, chills, sore throat, shortness of breath. She reports that she woke up this morning about 2:00 with severe chills and feeling feverish. She reports that she has had a slight nonproductive cough. She feels more short of breath when she is active right now she feels like she is having some wheezing. She does report some postnasal drainage. She denies any chest pain. She does report a history of A. fib and has noticed that her heart rate feels a little higher today. Associated symptoms: Reports fever(s) and palpitations; Deny abdominal pain, chest pain, nausea or vomiting Review of Systems Const: Reports: fever(s), chills and body aches ENMT: Reports: throat pain, nasal discharge and nasal congestion Card: Reports: palpitations and irregular heart rhythm (History of A. fib); Denies: chest pain Resp: Reports: dyspnea, non-productive cough and wheezing; Denies: productive cough GI: Denies: abdominal pain, nausea or vomiting Neuro: Reports: headache(s) (Mild frontal headache) PFSH ED PFSH: Medical History Atrial fibrillation CHF (congestive heart failure) Pt is wanting to wait for the Stress test till the VIrus is gone! Diabetes 1.5, managed as type 2 GERD (gastroesophageal reflux disease) Hypercholesteremia Hypertension Hypothyroid Lumbar disc disease with radiculopathy Mixed hyperlipidemia Nicotine abuse Skin tag, acquired Type 2 diabetes mellitus with diabetic polyneuropathy Venous insufficiency of both lower extremities Surgical History Hx laparoscopic cholecystectomy Hx of appendectomy Hx of cholecystectomy Hx of tubal ligation Family History Denies family history of Diabetes CAD (coronary artery disease) Clotting disorder Dementia Hyperlipidemia Psychiatric illness Chronic kidney disease (CKD) Suicide Anesthesia complication Bleeding disorder Family history of premature coronary artery disease Lung disease Cancer Hypertension Stroke Social History (Reviewed 03/16/22 @ 14:42 by TATIANA Burgess Smoking and tobacco status: former smoker Alcohol intake: never Physical Exam Const: COMMON NORMALS: no acute distress, patient oriented x3 and alert HENMT: COMMON NORMALS: TM's normal bilaterally TYMPANIC MEMBRANE: TM's normal bilaterally THROAT: uvula midline, posterior oropharynx abnormal erythema; no edema and postnasal drainage Resp: COMMON NORMALS: normal respiratory effort and No use of accessory muscles AUSCULTATION: wheezes expiratory wheezes and scattered wheezes Cardio: COMMON NORMALS: regular rate RATE: regular rate RHYTHM: abnormal rhythm irregularly irregular Neuro: COMMON NORMALS: patient oriented x3 SENSORIUM/ORIENTATION: Yes alert Course Vital Signs: Vital signs: Vital Signs Temperature 97.0 F L 03/16/22 13:35 Pulse Rate 89 03/16/22 13:35 Respiratory Rate 18 03/16/22 13:35 Blood Pressure 133/77 03/16/22 13:35 Pulse Oximetry 92 03/16/22 13:35 MDM - SOB/Dyspnea Medical Decision Making Consider CHF, A. fib RVR, upper respiratory infection, influenza Chest x-ray shows no acute cardiopulmonary changes. Negative influenza. Patient is well appearing. Vital signs are stable. Heart rate is irregular with a controlled rate in the 80s. No excessive or reported increased bilateral lower extremity edema to suggest worsening CHF. Physical exam findings are consistent with postnasal drainage and upper respiratory infection. We will treat patient conservatively for upper respiratory infection. Patient has albuterol inhaler at home. Lengthy discussion held with patient regarding conservative care at home. We also discussed her comorbidities and the need for close monitoring of her symptoms. If she is unable to stay hydrated or manage her fever she needs to return to the ER, or for any new or worsening symptoms. Patient is agreeable and stable for discharge. Lab Data Labs/Radiology: Radiology Impressions Chest X-Ray 03/16/22 13:59 IMPRESSION: No acute findings. Laboratory Results Influenza Type A Ag negative (Negative) 03/16/22 14:15 Influenza Type B Ag negative (Negative) 03/16/22 14:15 Discharge Plan Discharge Clinical Impression: Acute upper respiratory infection Condition: Stable Prescriptions: No Action (DME) Diabetic Shoes See Rx Instructions .ROUTE .MEDSUPPLY Qty: 1 0RF Rx Instructions: As directed, HOME with 3 pairs of inserts amlodipine 5 mg tablet 5 mg PO DAILY amiodarone [Pacerone] 100 mg tablet See Rx Instructions .ROUTE .COMPLEX Qty: 180 1RF Dose Instruction: Take 1 tablet by mouth twice daily Rx Instructions: Take 1 tablet by mouth twice daily metoprolol tartrate 25 mg tablet See Rx Instructions .ROUTE .COMPLEX Qty: 90 1RF Dose Instruction: Take 1/2 (one-half) tablet by mouth twice daily Rx Instructions: Take 1/2 (one-half) tablet by mouth twice daily potassium chloride 20 mEq tablet extended release 20 meq PO TID 30 Days Qty: 90 5RF levothyroxine 100 mcg tablet See Rx Instructions .ROUTE .COMPLEX Qty: 90 1RF Dose Instruction: Take 1 tablet by mouth once daily Rx Instructions: Take 1 tablet by mouth once daily furosemide 40 mg tablet 60 mg PO BID@0800,1999 Qty: 240 1RF Rx Instructions: Must be seen for further refills albuterol sulfate [ProAir HFA] 90 mcg/actuation HFA aerosol inhaler 2 puff inhalation QID 30 Days Qty: 8.5 5RF spironolactone 25 mg tablet See Rx Instructions .ROUTE .COMPLEX Qty: 30 4RF Dose Instruction: TAKE 1 TABLET BY MOUTH ONCE DAILY FOR SWELLING Rx Instructions: TAKE 1 TABLET BY MOUTH ONCE DAILY FOR SWELLING rivaroxaban 20 mg tablet 20 mg PO DAILY@0800 Qty: 30 0RF hydrocodone-acetaminophen 7.5-325 mg tablet 1 tab PO Q12H PRN (Reason: pain) 30 Days Qty: 60 0RF Rx Instructions: 30 day supply. cholecalciferol (vitamin D3) 125 mcg (5,000 unit) Tablet 5,000 unit PO DAILY Qty: 30 0RF Referrals: Anna Kaufman MD [Primary Care Provider] - Discharge Diet: Usual diet Discharge Activity: Increase activity as tolerated Patient Instructions: Upper Respiratory Infection - Adult Activity Restrictions/Additional Instructions: Staying withI recommend conservative treatment at home. Use of Tylenol to help with fever and chills. Hydrated. Monitor closely for any new or worsening symptoms and return to the ER as needed. Follow-up with your primary care provider next week. Coding Level of Care Code ED Drawbridge Operator for Chg Fwd Exam Expanded Problem Focused
[2022-03-16] MEDS: acetaminophen 500 mg Tablet 1000 MG PO (15:14)
== END 2022-03-16 16:23 | disposition home or self-care (01) ==
PROVIDERS: Emergency Provider Nurse Practitioner Family; PCP Family Medicine
DX: J06.9 Acute upper respiratory infection, unspecified (principal); Z87.891 Personal history of nicotine dependence
CPT/HCPCS: 71046; 87804; 99283

== ENCOUNTER 2022-04-19 19:43 | Emergency (ER) | payer MEDICARE, MEDICAID, SELFPAY ==
--- NOTE | 2022-04-19 19:45 | XRR_ITS ---
PROCEDURE INFORMATION: Exam: XR Right Foot Exam date and time: 04/19/2022 7:52 PM Age: 67 years old Clinical indication: Pain; Foot; Right; Additional info: Right foot pain, no injury, diabetic TECHNIQUE: Imaging protocol: Radiologic exam of the Right foot. Views: 3 or more views. COMPARISON: No relevant prior studies available. FINDINGS: Bones/joints: There is some deformity of the distal fibula, possibly an old healed fracture. Incidental degenerative cysts in the base of the 1st metatarsal. Another degenerative cyst in the middle cuneiform. No fracture. Incidental heel spur. Soft tissues: There is soft tissue swelling in the distal plantar foot. Other findings: No abnormal gas collection. XR/XR foot RT min 3V* [id number] IMPRESSION: Distal plantar soft tissue swelling. No fracture, bone destruction or abnormal gas
[2022-04-19 19:56] VITALS: BP 113/75; PULSE 91; RESP 18; TEMP 36.6; O2SAT 92; BMI 40.3
--- NOTE | 2022-04-19 20:22 | ED_ITS ---
HPI - Extremity Problem General: Chief complaint: Extremity Problem,Nontraumatic Stated complaint: Rt food Pain Time Seen by Provider: 04/19/22 19:44 Source: patient Mode of arrival: ambulatory Limitations: no limitations History of Present Illness: Patient presents emergency department today accompanied by family for evaluation treatment of right lateral foot pain. Patient states she woke up at approximately 4:00 this morning to go the bathroom and noticed when she started walking that the side of her foot was hurting. She denies any known injuries. She states she did not have any falls, extensive amount of walking or activity and the day prior. Patient is a diabetic and is always concerned about her feet. Review of Systems General: Reports: 10 or more systems reviewed and unremarkable except in HPI and below Musc: Reports: joint pain (carpal joint) and joint swelling (carpal joint) PFSH ED PFSH: Medical History Atrial fibrillation CHF (congestive heart failure) Pt is wanting to wait for the Stress test till the VIrus is gone! Diabetes 1.5, managed as type 2 GERD (gastroesophageal reflux disease) Hypercholesteremia Hypertension Hypothyroid Lumbar disc disease with radiculopathy Mixed hyperlipidemia Nicotine abuse Skin tag, acquired Type 2 diabetes mellitus with diabetic polyneuropathy Venous insufficiency of both lower extremities Surgical History Hx laparoscopic cholecystectomy Hx of appendectomy Hx of cholecystectomy Hx of tubal ligation Family History Denies family history of Diabetes CAD (coronary artery disease) Clotting disorder Dementia Hyperlipidemia Psychiatric illness Chronic kidney disease (CKD) Suicide Anesthesia complication Bleeding disorder Family history of premature coronary artery disease Lung disease Cancer Hypertension Stroke Social History Smoking and tobacco status: former smoker Alcohol intake: never Physical Exam Const: COMMON NORMALS: no acute distress, patient oriented x3 and alert HENMT: COMMON NORMALS: normocephalic, atraumatic and hearing grossly normal bilaterally HEAD & SCALP: normocephalic and atraumatic Eye: COMMON NORMALS: Equal, round and reactive pupils present, EOMs intact bilaterally and conjunctivae normal CONJUNCTIVA: Yes conjunctivae normal PUPIL: Yes Equal, round and reactive pupils present Neck/C-Spine: COMMON NORMALS: full ROM and no JVD Lymph: LYMPHATIC: no lymphadenopathy noted Resp: COMMON NORMALS: normal respiratory effort, No retractions and No use of accessory muscles Cardio: COMMON NORMALS: no JVD and regular rate RATE: regular rate Extremity: NARRATIVE EXTREMITY EXAM: Patient has point tenderness of the right lateral foot at the base of the fourth metatarsal and the tarsal bone joints. There is some generalized swelling of the dorsum of the right foot without pitting edema. There is no significant erythema or bruising. Patient has some, minimal tenderness to the proximal fifth metatarsal on palpation. No medial or lateral malleoli or tenderness. No Achilles attachment tenderness. Patient is independently ambulatory and weightbearing in the ER. Patient had no signs of abrasions, wounds, puncture wounds to the top, bottom, or webspaces of the foot. Neuro: COMMON NORMALS: patient oriented x3 SENSORIUM/ORIENTATION: Yes alert Psych: COMMON NORMALS: mental status grossly normal, Normal thought process present, cooperative and normal affect THOUGHT PROCESS: Normal thought process present Skin: COMMON NORMALS: no rashes or lesions noted and turgor normal GENERAL SKIN EXAM: no rashes or lesions noted and turgor normal Course Vital Signs: Vital signs: Vital Signs Temperature 98 F 04/19/22 19:56 Pulse Rate 91 04/19/22 19:56 Respiratory Rate 18 04/19/22 19:56 Blood Pressure 113/75 04/19/22 19:56 Pulse Oximetry 92 04/19/22 19:56 Oxygen Delivery Me thod 04/19/22 19:56 MDM - Extremity (Nontraumatic) Medical Decision Making Discussed with patient that her x-ray appears negative for any signs for acute bony abnormality. Still given her point tenderness and diabetic history, I did offer her CT examination. Patient wished to wait several days and treat conservatively to see how she improves. Otherwise, she can follow-up with her primary care doctor or return to an urgent care location to have another examination and possible reimaging of her foot taken at that time. Went over at home RICE therapy and patient was given a postop shoe for added comfort. Patient is to be seen and reevaluated sooner for acute worsening. Lab Data Radiology Impressions Foot X-Ray 04/19/22 19:45 IMPRESSION: Distal plantar soft tissue swelling. No fracture, bone destruction or abnormal gas Discharge Plan Discharge Patient Disposition: Home Clinical Impression: Acute pain of right foot Condition: Stable Prescriptions: No Action (DME) Diabetic Shoes See Rx Instructions .ROUTE .MEDSUPPLY Qty: 1 0RF Rx Instructions: As directed, HOME with 3 pairs of inserts amlodipine 5 mg tablet 5 mg PO DAILY amiodarone [Pacerone] 100 mg tablet See Rx Instructions .ROUTE .COMPLEX Qty: 180 1RF Dose Instruction: Take 1 tablet by mouth twice daily Rx Instructions: Take 1 tablet by mouth twice daily metoprolol tartrate 25 mg tablet See Rx Instructions .ROUTE .COMPLEX Qty: 90 1RF Dose Instruction: Take 1/2 (one-half) tablet by mouth twice daily Rx Instructions: Take 1/2 (one-half) tablet by mouth twice daily potassium chloride 20 mEq tablet extended release 20 meq PO TID 30 Days Qty: 90 5RF furosemide 40 mg tablet 60 mg PO BID@0800,2000 Qty: 240 1RF Rx Instructions: Must be seen for further refills rivaroxaban 20 mg tablet 20 mg PO DAILY@0800 Qty: 30 0RF levothyroxine 100 mcg tablet See Rx Instructions .ROUTE .COMPLEX Qty: 90 1RF Dose Instruction: Take 1 tablet by mouth once daily Rx Instructions: Take 1 tablet by mouth once daily albuterol sulfate [ProAir HFA] 90 mcg/actuation HFA aerosol inhaler 2 puff inhalation QID 30 Days Qty: 8.5 5RF spironolactone 25 mg tablet See Rx Instructions .ROUTE .COMPLEX Qty: 30 4RF Dose Instruction: TAKE 1 TABLET BY MOUTH ONCE DAILY FOR SWELLING Rx Instructions: TAKE 1 TABLET BY MOUTH ONCE DAILY FOR SWELLING hydrocodone-acetaminophen 7.5-325 mg tablet 1 tab PO Q12H PRN (Reason: pain) 30 Days Qty: 60 0RF Rx Instructions: 30 day supply. cholecalciferol (vitamin D3) 125 mcg (5,000 unit) Tablet 5,000 unit PO DAILY Qty: 30 0RF Discharge Orders: Discharge ED (Routine); Ordered 04/19/22 Ordered By: Emily Madsen Referrals: Anna Kaufman MD [Primary Care Provider] - Discharge Diet: Usual diet Discharge Activity: Limit activity as instructed Patient Instructions: Foot Care for People with Diabetes (ED) Activity Restrictions/Additional Instructions: The x-ray today indicated no signs of any acute bony fractures. You do have s ome arthritis and some small, benign bone cysts in various places throughout your foot. However, it is still possible for connective tissue injury or small fractures not able to be visualized on the x-ray to have occurred. As you have requested, we will treat conservatively for the next several days and reevaluate at the end of the week with primary care to discuss whether or not repeat imaging or further imaging is warranted. However, for any reason it acutely worsened you should return sooner for evaluation. Try and stay off of the foot is much as possible. Keep it up and elevated. Apply ice for 15 to 20 minutes, multiple times throughout the day. Coding Level of Care Code ED Director Case Management for Irving Rosario
== END 2022-04-19 21:20 | disposition home or self-care (01) ==
PROVIDERS: Emergency Provider Physician Assistant; PCP Family Medicine
DX: M79.671 Pain in right foot (principal); Z87.891 Personal history of nicotine dependence; I11.0 Hypertensive heart disease with heart failure; I50.9 Heart failure, unspecified; E78.2 Mixed hyperlipidemia; E11.9 Type 2 diabetes mellitus without complications
CPT/HCPCS: 73630; 99283

== ENCOUNTER 2022-04-20 19:50 | Emergency (ER) | payer MEDICARE, MEDICAID, SELFPAY ==
[2022-04-20 19:54] VITALS: BP 126/80; PULSE 92; RESP 16; TEMP 36.8; O2SAT 94
--- NOTE | 2022-04-20 20:31 | ED_ITS ---
Documented by User: SHANNAN Burgess 04/20/22 22:32 HPI - Extremity Problem General: Chief complaint: Extremity Injury, Lower Stated complaint: Right foot pain Time Seen by Provider: 04/20/22 20:10 History of Present Illness: Patient reports that she was in here last night for right foot pain. She reports that for a couple of days her right foot has just been hurting tremendously. She reports it is actually worse today. She denies any known injuries. She states that she is diabetic and she is always worried about her feet. She reports that she really cannot bear weight on the foot. Associated symptoms: Deny chest pain or fever(s) Review of Systems Const: Denies: fever(s), chills or body aches Eyes: Denies: change in vision or blurry vision ENMT: Denies: throat pain Card: Denies: chest pain, palpitations, irregular heart rhythm, lighthead edness or syncope Resp: Denies: dyspnea, productive cough or non-productive cough GI: Denies: abdominal pain, nausea or vomiting : Denies: flank pain, difficulty voiding, dysuria, urinary frequency, urinary urgency or urinary hesitancy Musc: Reports: joint pain and joint swelling; Denies: neck pain or back pain Neuro: Denies: headache(s), numbness in extremities or weakness in extremities PFSH ED PFSH: Medical History Atrial fibrillation CHF (congestive heart failure) Pt is wanting to wait for the Stress test till the VIrus is gone! Diabetes 1.5, managed as type 2 GERD (gastroesophageal reflux disease) Hypercholesteremia Hypertension Hypothyroid Lumbar disc disease with radiculopathy Mixed hyperlipidemia Nicotine abuse Skin tag, acquired Type 2 diabetes mellitus with diabetic polyneuropathy Venous insufficiency of both lower extremities Surgical History Hx laparoscopic cholecystectomy Hx of appendectomy Hx of cholecystectomy Hx of tubal ligation Family History Denies family history of Diabetes CAD (coronary artery disease) Clotting disorder Dementia Hyperlipidemia Psychiatric illness Chronic kidney disease (CKD) Suicide Anesthesia complication Bleeding disorder Family history of premature coronary artery disease Lung disease Cancer Hypertension Stroke Social History Smoking and tobacco status: former smoker Alcohol intake: never Physical Exam Const: COMMON NORMALS: no acute distress, patient oriented x3 and alert NUTRITIONAL APPEARANCE: obese morbidly obese Resp: COMMON NORMALS: normal respiratory effort and No use of accessory muscles Extremity: NARRATIVE EXTREMITY EXAM: Right dorsal foot with minimal edema. Point tenderness to tarsal-metatarsal joint, fourth metatarsal and fifth metatarsal. No obvious bony deformity or soft tissue deformity appreciated. Skin is intact without any erythema or bruising noted. Patient does have dry skin with some flaking skin at the bottom of her foot plantar surface, but no open areas on the foot. Pedal pulses intact palpable. Color and sensation within normal limits. No tenderness appreciated to the medial or lateral malleolus. Neuro: COMMON NORMALS: patient oriented x3 SENSORIUM/ORIENTATION: Yes alert Course Vital Signs: Vital signs: Vital Signs Temperature 97.9 F 04/20/22 22:38 Pulse Rate 81 04/20/22 22:38 Respiratory Rate 15 04/20/22 22:38 Blood Pressure 118/79 04/20/22 22:38 Pulse Oximetry 94 04/20/22 22:38 Oxygen Delivery Me thod 04/20/22 22:38 MDM - Extremity (Nontraumatic) Medical Decision Making Differentials include fracture of foot versus soft tissue injury Patient was seen in ER yesterday. She had x-ray of the foot which did not show any acute osseous deformity. She was offered a CT scan of the foot given that she is diabetic with sudden onset pain and patient declined at that time wanting to try conservative therapy first. She is back today with worsening pain. CT foot shows mild soft tissue swelling no drainable fluid collection or abscess and degenerative changes without any acute osseous injury. Discussed the results with the patient and her visitor. Discussed conservative treatments at home. Patient does wish to try crutches to help her limit weightbearing for a couple of days. Advised her to follow-up with primary care provider next week for reevaluation. Return to the ER as needed for new or worsening symptoms Lab Data Radiology Impressions Foot CT 04/20/22 20:40 IMPRESSION: 1. Mild soft tissue swelling of the foot. No drainable fluid collection or abscess. 2. Degenerative changes. No acute osseous injury. Discharge Plan Discharge Patient Disposition: Home Clinical Impression: Degenerative arthritis, Acute foot pain Condition: Stable Prescriptions: No Action (DME) Diabetic Shoes See Rx Instructions .ROUTE .MEDSUPPLY Qty: 1 0RF Rx Instructions: As directed, HOME with 3 pairs of inserts amlodipine 5 mg tablet 5 mg PO DAILY amiodarone [Pacerone] 100 mg tablet See Rx Instructions .ROUTE .COMPLEX Qty: 180 1RF Dose Instruction: Take 1 tablet by mouth twice daily Rx Instructions: Take 1 tablet by mouth twice daily metoprolol tartrate 25 mg tablet See Rx Instructions .ROUTE .COMPLEX Qty: 90 1RF Dose Instruction: Take 1/2 (one-half) tablet by mouth twice daily Rx Instructions: Take 1/2 (one-half) tablet by mouth twice daily potassium chloride 20 mEq tablet extended release 20 meq PO TID 30 Days Qty: 90 5RF furosemide 40 mg tablet 60 mg PO BID@0800,2000 Qty: 240 1RF Rx Instructions: Must be seen for further refills rivaroxaban 20 mg tablet 20 mg PO DAILY@0800 Qty: 30 0RF levothyroxine 100 mcg tablet See Rx Instructions .ROUTE .COMPLEX Qty: 90 1RF Dose Instruction: Take 1 tablet by mouth once daily Rx Instructions: Take 1 tablet by mouth once daily albuterol sulfate [ProAir HFA] 90 mcg/actuation HFA aerosol inhaler 2 puff inhalation QID 30 Days Qty: 8.5 5RF spironolactone 25 mg tablet See Rx Instructions .ROUTE .COMPLEX Qty: 30 4RF Dose Instruction: TAKE 1 TABLET BY MOUTH ONCE DAILY FOR SWELLING Rx Instructions: TAKE 1 TABLET BY MOUTH ONCE DAILY FOR SWELLING hydrocodone-acetaminophen 7.5-325 mg tablet 1 tab PO Q12H PRN (Reason: pain) 30 Days Qty: 60 0RF Rx Instructions: 30 day supply. cholecalciferol (vitamin D3) 125 mcg (5,000 unit) Tablet 5,000 unit PO DAILY Qty: 30 0RF Discharge Orders: Discharge ED (Routine); Ordered 04/20/22 Ordered By: Nicole Calzada Referrals: Anna Kaufman MD [Primary Care Provider] - Discharge Diet: Usual diet Discharge Activity: Increase activity as tolerated Patient Instructions: Osteoarthritis (ED) Activity Restrictions/Additional Instructions: Use crutches as needed to limit weightbearing for a couple of days to rest the foot. Elevate, ice, rest the extremity. Follow-up with primary care provider next week for reevaluation. Return to the ER for new or worsening symptoms Coding Level of Care Code ED Photo Mask Processor for Chg Fwd Exam Expanded Problem Focused Documented by User: Eros Oglesby DO 04/21/22 10:10 HPI - Extremity Problem General: Chief complaint: Extremity Injury, Lower Stated complaint: Right foot pain Time Seen by Provider: 04/20/22 20:10 PFS ED PFSH: Medical History Atrial fibrillation CHF (congestive heart failure) Pt is wanting to wait for the Stress test till the VIrus is gone! Diabetes 1.5, managed as type 2 GERD (gastroesophageal reflux disease) Hypercholesteremia Hypertension Hypothyroid Lumbar disc disease with radiculopathy Mixed hyperlipidemia Nicotine abuse Skin tag, acquired Type 2 diabetes mellitus with diabetic polyneuropathy Venous insufficiency of both lower extremities Surgical History Hx laparoscopic cholecystectomy Hx of appendectomy Hx of cholecystectomy Hx of tubal ligation Family History Denies family history of Diabetes CAD (coronary artery disease) Clotting disorder Dementia Hyperlipidemia Psychiatric illness Chronic kidney disease (CKD) Suicide Anesthesia complication Bleeding disorder Family history of premature coronary artery disease Lung disease Cancer Hypertension Stroke Social History Smoking and tobacco status: former smoker Alcohol intake: never Course Vital Signs: Vital signs: Vital Signs Temperature 97.9 F 04/20/22 22:38 Pulse Rate 81 04/20/22 22:38 Respiratory Rate 15 04/20/22 22:38 Blood Pressure 118/79 04/20/22 22:38 Pulse Oximetry 94 04/20/22 22:38 Oxygen Delivery Me thod 04/20/22 22:38 MDM - Extremity (Nontraumatic) Medical Decision Making Differentials include fracture of foot versus soft tissue injury Patient was seen in ER yesterday. She had x-ray of the foot which did not show any acute osseous deformity. She was offered a CT scan of the foot given that she is diabetic with sudden onset pain and patient declined at that time wanting to try conservative therapy first. She is back today with worsening pain. CT foot shows mild soft tissue swelling no drainable fluid collection or abscess and degenerative changes without any acute osseous injury. Discussed the results with the patient and her visitor. Discussed conservative treatments at home. Patient does wish to try crutches to help her limit weightbearing for a couple of days. Advised her to follow-up with primary care provider next week for reevaluation. Return to the ER as needed for new or worsening symptoms Chart reviewed and patient discussed with midlevel. Agree with assessment and plan. Lab Data Radiology Impressions Foot CT 04/20/22 20:40 IMPRESSION: 1. Mild soft tissue swelling of the foot. No drainable fluid collection or abscess. 2. Degenerative changes. No acute osseous injury. Discharge Plan Discharge Patient Disposition: Home Clinical Impression: Degenerative arthritis, Acute foot pain Condition: Stable Prescriptions: No Action (DME) Diabetic Shoes See Rx Instructions .ROUTE .MEDSUPPLY Qty: 1 0RF Rx Instructions: As directed, HOME with 3 pairs of inserts amlodipine 5 mg tablet 5 mg PO DAILY amiodarone [Pacerone] 100 mg tablet See Rx Instructions .ROUTE .COMPLEX Qty: 180 1RF Dose Instruction: Take 1 tablet by mouth twice daily Rx Instructions: Take 1 tablet by mouth twice daily metoprolol tartrate 25 mg tablet See Rx Instructions .ROUTE .COMPLEX Qty: 90 1RF Dose Instruction: Take 1/2 (one-half) tablet by mouth twice daily Rx Instructions: Take 1/2 (one-half) tablet by mouth twice daily potassium chloride 20 mEq tablet extended release 20 meq PO TID 30 Days Qty: 90 5RF furosemide 40 mg tablet 60 mg PO BID@0800,1999 Qty: 240 1RF Rx Instructions: Must be seen for further refills rivaroxaban 20 mg tablet 20 mg PO DAILY@0800 Qty: 30 0RF levothyroxine 100 mcg tablet See Rx Instructions .ROUTE .COMPLEX Qty: 90 1RF Dose Instruction: Take 1 tablet by mouth once daily Rx Instructions: Take 1 tablet by mouth once daily albuterol sulfate [ProAir HFA] 90 mcg/actuation HFA aerosol inhaler 2 puff inhalation QID 30 Days Qty: 8.5 5RF spironolactone 25 mg tablet See Rx Instructions .ROUTE .COMPLEX Qty: 30 4RF Dose Instruction: TAKE 1 TABLET BY MOUTH ONCE DAILY FOR SWELLING Rx Instructions: TAKE 1 TABLET BY MOUTH ONCE DAILY FOR SWELLING hydrocodone-acetaminophen 7.5-325 mg tablet 1 tab PO Q12H PRN (Reason: pain) 30 Days Qty: 60 0RF Rx Instructions: 30 day supply. cholecalciferol (vitamin D3) 125 mcg (5,000 unit) Tablet 5,000 unit PO DAILY Qty: 30 0RF Discharge Orders: Discharge ED (Routine); Ordered 04/20/22 Ordered By: Nicole Calzada Referrals: Anna Kaufman MD [Primary Care Provider] - Discharge Diet: Usual diet Discharge Activity: Increase activity as tolerated Patient Instructions: Osteoarthritis (ED) Activity Restrictions/Additional Instructions: Use crutches as needed to limit weightbearing for a couple of days to rest the foot. Elevate, ice, rest the extremity. Follow-up with primary care provider next week for reevaluation. Return to the ER for new or worsening symptoms Coding Level of Care Code ED Photo Mask Processor for Irving Fwd Exam Expanded Problem Focused
--- NOTE | 2022-04-20 20:40 | CTR_ITS ---
PROCEDURE INFORMATION: Exam: CT Right Lower Extremity Without Contrast, Foot Exam date and time: 04/20/2022 9:08 PM Age: 67 years old Clinical indication: Right; Patient HX: C/O worsening RT foot pain and unable to bear weight. History of diabetic neuropathy. ; Additional info: Foot pain tarsal-metatarsal joint 4th and 5th, diabetic TECHNIQUE: Imaging protocol: CT of the Right lower extremity without contrast was performed. Exam focused on the foot. Radiation optimization: All CT scans at this facility use at least one of these dose optimization techniques: automated exposure control; mA and/or kV adjustment per patient size (includes targeted exams where dose is matched to clinical indication); or iterative reconstruction. COMPARISON: CR (LOW EXM, ) 04/19/2022 7:52 PM RADIATION DOSE METRICS: Total DLP (mGy-cm): 137.22 FINDINGS: Bones/joints: Mild peripheral joint degenerative changes are seen in the toes. The medial sesamoid bone is bipartite. Calcaneal enthesopathy. No acute displaced fracture. Moderate midfoot degenerative arthritis. Mild tibiotalar joint arthritis. 4 mm well corticated ossific fragment inferior to the medial malleolus, consistent with old trauma. Soft tissues: Mild soft tissue swelling of the foot. No drainable fluid collection or abscess. CT/CT foot RT wo con* [id number] IMPRESSION: 1. Mild soft tissue swelling of the foot. No drainable fluid collection or abscess. 2. Degenerative changes. No acute osseous injury.
[2022-04-20] MEDS: HYDROcodone-acetaminophen 5-325 mg Tablet 1 TAB PO (21:04)
[2022-04-20 22:38] VITALS: BP 118/79; PULSE 81; RESP 15; TEMP 36.6; O2SAT 94
== END 2022-04-20 22:35 | disposition home or self-care (01) ==
PROVIDERS: Emergency Provider Nurse Practitioner Family; PCP Family Medicine
DX: M19.071 Primary osteoarthritis, right ankle and foot (principal); I11.0 Hypertensive heart disease with heart failure; I50.9 Heart failure, unspecified; E11.9 Type 2 diabetes mellitus without complications; Z87.891 Personal history of nicotine dependence
CPT/HCPCS: 73700; 99284; E0114

== ENCOUNTER → 2022-05-10 12:21 | Outpatient (BNVA) | payer MEDICARE, MEDICAID, SELFPAY | PROVIDERS: PCP Family Medicine; Visit Provider Family Medicine | DX: E03.9 Hypothyroidism, unspecified (principal); E13.9 Other specified diabetes mellitus without complications; Z79.899 Other long term (current) drug therapy; Z09 Encounter for follow-up examination after completed treatment for conditions other than malignant neoplasm; L03.115 Cellulitis of right lower limb; I48.0 Paroxysmal atrial fibrillation; N17.9 Acute kidney failure, unspecified; N18.31 Chronic kidney disease, stage 3a | CPT/HCPCS: 80053; 83036; 84443 ==

== ENCOUNTER → 2022-06-03 10:19 | Outpatient (BNVA) | payer MEDICARE, MEDICAID, SELFPAY | PROVIDERS: PCP Family Medicine; Visit Provider Podiatrist Foot & Ankle Surgery | DX: E11.8 Type 2 diabetes mellitus with unspecified complications (principal); E11.42 Type 2 diabetes mellitus with diabetic polyneuropathy; L84 Corns and callosities; I73.9 Peripheral vascular disease, unspecified; L60.3 Nail dystrophy | CPT/HCPCS: 11055; 11721 ==

== ENCOUNTER → 2022-06-15 08:58 | Outpatient (BNVA) | payer MEDICARE, MEDICAID, SELFPAY | PROVIDERS: PCP Family Medicine; Visit Provider Family Medicine | DX: N17.9 Acute kidney failure, unspecified (principal); N18.31 Chronic kidney disease, stage 3a; E03.9 Hypothyroidism, unspecified; E11.42 Type 2 diabetes mellitus with diabetic polyneuropathy; I10 Essential (primary) hypertension | CPT/HCPCS: 80053 ==

== ENCOUNTER 2022-07-09 09:42 | Emergency (ER) | payer MEDICARE, MEDICAID, SELFPAY ==
[2022-07-09 10:04] VITALS: BP 115/79; PULSE 79; RESP 14; O2SAT 95
--- NOTE | 2022-07-09 11:23 | XR_ITS ---
WS: [id number] Exam: XR foot RT min 3V* [id number] Date/Time of Exam: 07/09/2022 11:25 AM Reason For Exam: foot pain Comparison 04/19/2022. No acute fracture or dislocation. There are subcortical degenerative cysts noted in the several metat arsals and tarsal bones. No soft tissue foreign bodies are identified. Large plantar heel spur. Soft tissue swelling of the plantar soft tissues of the mid and forefoot. XR/XR foot RT min 3V* [id number] IMPRESSION: 1. No fracture or dislocation. 2. Degenerative changes. 3. Soft tissue swelling of the forefoot.
--- NOTE | 2022-07-09 11:23 | XR_ITS ---
WS: [id number] Exam: XR knee RT 3V* [id number] Date/Time of Exam: 07/09/2022 11:25 AM Reason For Exam: right knee pain Comparison 01/23/2008. No acute fracture or dislocation. Slight narrowing of the medial and lateral joint compartments. No j oint effusion. Vascular calcifications posteriorly. XR/XR knee RT 3V* [id number] IMPRESSION: 1. Minimal degenerative narrowing of the medial and lateral joint compartments otherwise negative right knee.
--- NOTE | 2022-07-09 11:23 | USCV_ITS ---
Mavis Joseph Age: 67 Gender: F : 1955 Exam Date: 07/09/2022 11:50 Ordering Phys: Jamie Bonilla Technologist: KEKE Exam Location: [facility] [place] Indication: rt lower extremity pain FINDINGS: no evidence of dvt identified CONCLUSIONS No evidence of right lower extremity DVT. Johnny Shahid MD (Electronically Signed) Final Date: 09 July 2022 16:01 S
--- NOTE | 2022-07-09 11:28 | W.ED.EXTPRO ---
HPI - Extremity Problem General: Chief complaint: Extremity Problem,Nontraumatic Stated complaint: right foot and leg pain Time Seen by Provider: 07/09/22 11:09 History of Present Illness: Patient is a 67-year-old female comes to the ED with right leg pain. Symptoms started approximately 3 days ago. She denies any known injury or trauma to cause pain. Pain located in right knee and right foot. She rates the pain currently a 10 out of 10. She also endorses some increased right lower extremity swelling. Denies any history of DVTs. Patient is currently on a blood thinner. Denies any chest pain or shortness of breath. Associated symptoms: Deny chest pain, fever(s) or rash Review of Systems Const: Denies: fever(s), chills or fatigue Eyes: Denies: change in vision or eye discomfort ENMT: Denies: throat pain, odynophagia, nasal discharge or nasal congestion Card: Denies: chest pain, palpitations, edema, swelling of feet/ankles, dyspnea on exertion or orthopnea Resp: Denies: dyspnea, productive cough or non-productive cough GI: Denies: abdominal pain, nausea, vomiting, diarrhea, constipation or hematochezia : Denies: flank pain, dysuria or hematuria Musc: Reports: extremity pain (Right knee, right foot) and extremity swelling (Right lower leg); Denies: neck pain or back pain Skin/Breast: Denies: rash or new lesions Neuro: Denies: headache(s), numbness in extremities or weakness in extremities PFSH ED PFSH: Medical History Atrial fibrillation CHF (congestive heart failure) Pt is wanting to wait for the Stress test till the VIrus is gone! Diabetes 1.5, managed as type 2 GERD (gastroesophageal reflux disease) Hypercholesteremia Hypertension Hypothyroid Lumbar disc disease with radiculopathy Mixed hyperlipidemia Nicotine abuse Skin tag, acquired Type 2 diabetes mellitus with diabetic polyneuropathy Venous insufficiency of both lower extremities Surgical History Hx laparoscopic cholecystectomy Hx of appendectomy Hx of cholecystectomy Hx of tubal ligation Family History Denies family history of Diabetes CAD (coronary artery disease) Clotting disorder Dementia Hyperlipidemia Psychiatric illness Chronic kidney disease (CKD) Suicide Anesthesia complication Bleeding disorder Family history of premature coronary artery disease Lung disease Cancer Hypertension Stroke Social History Smoking and tobacco status: former smoker Alcohol intake: never Physical Exam Const: COMMON NORMALS: no acute distress, patient oriented x3 and alert GENERAL APPEARANCE: cooperative HENMT: COMMON NORMALS: normocephalic HEAD & SCALP: normocephalic MOUTH: Normal oral and palatal mucosa present THROAT: posterior oropharynx normal and uvula midline Neck/C-Spine: COMMON NORMALS: supple GENERAL: Yes normal visual inspection Resp: COMMON NORMALS: normal respiratory effort, No retractions, No use of accessory muscles and clear to auscultation bilaterally AUSCULTATION: clear to auscultation bilaterally Cardio: COMMON NORMALS: regular rate, regular rhythm, S1 normal heart sound present, S2 normal heart sound present, No gallops present (Cardio), No clicks present (Cardio), No murmurs present (Cardio) and Peripheral pulses 2+ throughout RATE: regular rate RHYTHM: regular rhythm HEART SOUNDS: S1 normal heart sound present and S2 normal heart sound present PERIPHERAL PULSES: Peripheral pulses 2+ throughout GI: COMMON NORMALS: Normal to inspection, nondistended, normoactive bowel sounds present, Soft to palpation, non-tender and no masses PALPATION: Yes Soft to palpation : COMMON NORMALS: Yes no CVA tenderness BLADDER/KIDNEY EXAM: Yes no CVA tenderness Back/Pelvis: COMMON NORMALS: no CVA tenderness Extremity: NARRATIVE EXTREMITY EXAM: Right lower extremity has 1+ pitting edema in feet and ankles. Right foot appears swollen and is very tender to palpation throughout. Patient has some mild erythema around midfoot along with some warmth. Findings suggestive of possible developing cellulitis. Right knee exam is unremarkable. Neuro: COMMON NORMALS: patient oriented x3 SENSORIUM/ORIENTATION: Yes alert GAIT: Yes Normal gait present Skin: GENERAL SKIN EXAM: dry skin Course Vital Signs: Vital signs: Vital Signs Pulse Rate 79 07/09/22 10:04 Respiratory Rate 14 07/09/22 10:04 Blood Pressure 115/79 07/09/22 10:04 Pulse Oximetry 95 07/09/22 10:04 Oxygen Delivery Me thod 07/09/22 10:04 MDM - Extremity (Nontraumatic) Medical Decision Making Patient is a 67-year-old female comes to the ED with right leg pain. Symptoms started approximately 3 days ago. She denies any known injury or trauma to cause pain. Pain located in right knee and right foot. She rates the pain currently a 10 out of 10. She also endorses some increased right lower extremity swelling. Denies any history of DVTs. Patient is currently on a blood thinner. Denies any chest pain or shortness of breath. Vitals are stable. Right lower extremity has 1+ pitting edema in feet and ankles. Right foot appears swollen and is very tender to palpation throughout. Patient has some mild erythema around midfoot along with some warmth. Findings suggestive of possible developing cellulitis.Right knee exam is unremarkable. X-ray of right foot and right knee both showed no acute fractures but did note some osteoarthritis. Ultrasound venous duplex of right leg showed no DVTs. Patient was stable for discharge home and diagnosed with osteoarthritis of right lower extremity and cellulitis. She was discharged home with a prescription for an antibiotic. Told to follow-up with PCP within the next week for reevaluation. Return to ED precautions given. Patient understood and agreed with plan. Lab Data I reviewed the patient's lab results. Radiology Impressions Foot X-Ray 07/09/22 11:23 IMPRESSION: 1. No fracture or dislocation. 2. Degenerative changes. 3. Soft tissue swelling of the forefoot. Knee X-Ray 07/09/22 11:23 IMPRESSION: 1. Minimal degenerative narrowing of the medial and lateral joint compartments otherwise negative right knee. Discharge Plan Discharge Patient Disposition: Home Clinical Impression: Osteoarthritis of right lower extremity Cellulitis Qualifiers: Site of cellulitis: extremity Site of cellulitis of extremity: lower extremity Laterality: right Qualified Code(s): L03.115 - Cellulitis of right lower limb Condition: Stable Prescriptions: New doxycycline hyclate 100 mg capsule 100 mg PO BID 10 Days Qty: 20 0RF No Action amlodipine 5 mg tablet 5 mg PO DAILY amiodarone [Pacerone] 100 mg tablet See Rx Instructions .ROUTE .COMPLEX Qty: 180 1RF Dose Instruction: Take 1 tablet by mouth twice daily Rx Instructions: Take 1 tablet by mouth twice daily levothyroxine 100 mcg tablet See Rx Instructions .ROUTE .COMPLEX Qty: 90 1RF Dose Instruction: Take 1 tablet by mouth once daily Rx Instructions: Take 1 tablet by mouth once daily furosemide 40 mg tablet 60 mg PO BID@0800,2000 Qty: 240 1RF Rx Instructions: Must be seen for further refills rivaroxaban 20 mg tablet 20 mg PO DAILY@0800 Qty: 30 0RF albuterol sulfate [ProAir HFA] 90 mcg/actuation HFA aerosol inhaler 2 puff inhalation QID 30 Days Qty: 8.5 5RF cephalexin 500 mg capsule 500 mg PO TID Qty: 20 0RF (DME) Diabetic Shoes with 3 inserts See Rx Instructions .ROUTE .MEDSUPPLY Qty: 1 0RF Rx Instructions: As directed, HOME metoprolol tartrate 25 mg tablet See Rx Instructions .ROUTE .COMPLEX Qty: 90 1RF Dose Instruction: Take 1/2 (one-half) tablet by mouth twice daily Rx Instructions: Take 1/2 (one-half) tablet by mouth twice daily spironolactone 25 mg tablet See Rx Instructions .ROUTE .COMPLEX Qty: 90 3RF Dose Instruction: TAKE 1 TABLET BY MOUTH ONCE DAILY FOR SWELLING Rx Instructions: TAKE 1 TABLET BY MOUTH ONCE DAILY FOR SWELLING hydrocodone-acetaminophen 7.5-325 mg tablet 1 tab PO Q12H PRN (Reason: pain) 30 Days Qty: 60 0RF Rx Instructions: 30 day supply. cholecalciferol (vitamin D3) 125 mcg (5,000 unit) Tablet 5,000 unit PO DAILY Qty: 30 0RF Discharge Orders: Discharge ED (Routine); Ordered 07/09/22 Ordered By: Jamie Bonilla Referrals: Anna Kaufman MD [Primary Care Provider] - Discharge Diet: Regular Discharge Activity: Increase activity as tolerated Activity Restrictions/Additional Instructions: Follow-up with medical provider as directed in the next 5 to 7 days for reevaluation. Take medications as prescribed. Return to the ER or your medical provider if condition worsens. Please read and understand discharge instructions. Thank you for choosing [facility] for your healthcare needs today. Please realize this is an emergency room and that we are providing you with a medical screening exam and this may not be complete and all inclusive of all the testing and or work up that you may need to determine your ailment or severity of your illness. It is very important that you follow up as instructed or that you return to the Emergency Department should you have concerns or if your condition changes or worsens in any way. Coding Level of Care Code ED Gang Worker for Irving Rosario
[2022-07-09] MEDS: HYDROcodone-acetaminophen 5-325 mg Tablet 1 TAB PO (11:32)
== END 2022-07-09 14:07 | disposition home or self-care (01) ==
PROVIDERS: Emergency Provider Physician Assistant; PCP Family Medicine
DX: M17.11 Unilateral primary osteoarthritis, right knee (principal); L03.115 Cellulitis of right lower limb; Z87.891 Personal history of nicotine dependence; I11.0 Hypertensive heart disease with heart failure; I50.9 Heart failure, unspecified; E11.9 Type 2 diabetes mellitus without complications; E78.2 Mixed hyperlipidemia
CPT/HCPCS: 73562; 73630; 93971; 99284

== ENCOUNTER → 2022-07-21 11:46 | Outpatient (BNVA) | payer MEDICARE, MEDICAID, SELFPAY | PROVIDERS: PCP Family Medicine; Visit Provider Family Medicine | DX: E11.22 Type 2 diabetes mellitus with diabetic chronic kidney disease (principal); N18.9 Chronic kidney disease, unspecified; N17.9 Acute kidney failure, unspecified; Z79.899 Other long term (current) drug therapy | CPT/HCPCS: 80048; 83036; 85025 ==

== ENCOUNTER → 2022-08-19 11:18 | Outpatient (BNVA) | payer MEDICARE, MEDICAID, SELFPAY | PROVIDERS: PCP Family Medicine; Visit Provider Podiatrist Foot & Ankle Surgery | DX: E11.8 Type 2 diabetes mellitus with unspecified complications (principal); E11.42 Type 2 diabetes mellitus with diabetic polyneuropathy; L84 Corns and callosities; L60.3 Nail dystrophy; I73.9 Peripheral vascular disease, unspecified | CPT/HCPCS: 11055; 11721 ==

== ENCOUNTER 2022-09-27 12:59 | Outpatient (CLI) | payer MEDICARE, MEDICAID, SELFPAY ==
--- NOTE | 2022-09-27 13:08 | XR_ITS ---
WS: [id number] EXAMINATION: XR foot LT min 3V* [id number] REASON FOR EXAM: increased pain 3rd/4th metatarsals COMPARISON: None available. ORDER DATE: 09/27/2022 1:31 PM TECHNIQUE: 3 views of the left foot were obtained. X-RAY FINDINGS: There are no fractures or dislocations. There are prominent degenerative changes in the tarsometatars al articulations especially of the first through third metatarsals is prominent subchondral cystic de generative changes. Subchondral erosive changes at the articulations are suggested but difficult to c learly visualize due to osseous overlap. Cannot exclude some old posttraumatic deformity predisposing to the sclerotic change. No definite focal abnormal soft tissue swelling. Prominent plantar calcanea l spur of approximately 8 mm in length. XR/XR foot LT min 3V* [id number] IMPRESSION: No acute fractures or dislocations of the left foot. Prominent tarsometatarsal degenerative changes
== END 2022-09-27 13:00 | disposition home or self-care (01) ==
PROVIDERS: PCP Family Medicine; Visit Provider Family Medicine
DX: M77.41 Metatarsalgia, right foot (principal); M77.42 Metatarsalgia, left foot; N17.9 Acute kidney failure, unspecified; N18.9 Chronic kidney disease, unspecified
CPT/HCPCS: 73630; 80053

== ENCOUNTER → 2022-10-25 11:20 | Outpatient (BNVA) | payer MEDICARE, MEDICAID, SELFPAY | PROVIDERS: PCP Family Medicine; Visit Provider Podiatrist Foot & Ankle Surgery | DX: I73.9 Peripheral vascular disease, unspecified (principal); L60.3 Nail dystrophy; L84 Corns and callosities; E11.42 Type 2 diabetes mellitus with diabetic polyneuropathy; M19.072 Primary osteoarthritis, left ankle and foot; E11.8 Type 2 diabetes mellitus with unspecified complications | CPT/HCPCS: 11056; 11721; 73630; 99213 ==

== ENCOUNTER 2022-11-02 19:09 | Emergency (ER) | payer MEDICARE, MEDICAID, SELFPAY ==
[2022-11-02 19:34] VITALS: BP 117/70; PULSE 93; RESP 14; TEMP 38.7; O2SAT 94; BMI 30.7
--- NOTE | 2022-11-02 19:49 | XRR_ITS ---
PROCEDURE INFORMATION: Exam: XR Left Foot Exam date and time: 11/02/2022 7:53 PM Age: 67 years old Clinical indication: Pain; Foot; Left; Additional info: Pain, no injury TECHNIQUE: Imaging protocol: Radiologic exam of the left foot. Views: 3 or more views. COMPARISON: 1. CR XR foot LT min 3V* [id number] 10/25/2022 11:23 AM 2. CR XR foot LT min 3V* [id number] 09/27/2022 1:30 PM FINDINGS: Bones/joints: No acute fracture or dislocation. Diffusely demineralized bones. Degenerative changes of the 1st and 2nd tarsometatarsal joints. Plantar calcaneal enthesophyte. Soft tissues: Stable thin curvilinear density projecting between the 1st and 2nd metatarsal heads. Edematous soft tissue swelling about the ankle and dorsal forefoot. XR/XR foot LT min 3V* [id number] IMPRESSION: Increased edematous soft tissue swelling without acute fracture.
[2022-11-02 20:30] LABS: Basophils # 0.1 10^3/uL (0.0-0.1); Basophils % 0.5 %; Eosinophils # 0.1 10^3/uL (0.0-0.8); Eosinophils % 0.7 %; Hematocrit 43.5 % (37.0-47.0); Hemoglobin 13.4 g/dL (11.5-15.3); Lymphocytes # 0.7 10^3/uL (0.8-4.8); Lymphocytes % 4.8 %; Mean Corpuscular HGB Conc 30.8 g/dL (30.0-36.0); Mean Corpuscular Volume 97.3 fl (81-99); Mean Platelet Volume 9.3 fL (7.4-10.4); Monocytes # 0.7 10^3/uL (0.2-0.9); Monocytes % 4.6 %; Neutrophils # 13.86 10^3/uL (1.8-7.7); Neutrophils % 89.1 %; Nucleated Red Blood Cells % 0 %; Platelet Count 325 10^3/cmm (130-400); Red Blood Count 4.47 10^6/uL (4.1-5.3); White Blood Count 15.6 10^3/uL (4.0-10.0)
--- NOTE | 2022-11-02 20:45 | ED_ITS ---
HPI - Extremity Problem General: Chief complaint: Extremity Injury, Lower Stated complaint: left foot pain, swelling Time Seen by Provider: 11/02/22 20:43 History of Present Illness: 67-year-old female comes in today with complaints of left foot pain and swelling. 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 At that time they thought that she might of just had a flare of arthritis. Patient came in today due to increasing redness and discomfort and some chills. Patient does have a history of diabetes and DVT. Associated symptoms: Deny chest pain Review of Systems General: Reports: 10 or more systems reviewed and unremarkable except in HPI and below Const: Reports: chills Card: Denies: chest pain Resp: Denies: dyspnea GI: Denies: vomiting Musc: Reports: extremity pain and extremity swelling Skin/Breast: Reports: erythema PFSH ED PFSH: Medical History (Updated 11/02/22 @ 22:00 by CRISTOFER Centeno) Atrial fibrillation CHF (congestive heart failure) Pt is wanting to wait for the Stress test till the VIrus is gone! Diabetes 1.5, managed as type 2 GERD (gastroesophageal reflux disease) Hypercholesteremia Hypertension Hypothyroid Lumbar disc disease with radiculopathy Metatarsalgia of both feet Mixed hyperlipidemia Nicotine abuse Skin tag, acquired Type 2 diabetes mellitus with diabetic polyneuropathy Venous insufficiency of both lower extremities Surgical History Hx laparoscopic cholecystectomy Hx of appendectomy Hx of cholecystectomy Hx of tubal ligation Family History Denies family history of Diabetes CAD (coronary artery disease) Clotting disorder Dementia Hyperlipidemia Psychiatric illness Chronic kidney disease (CKD) Suicide Anesthesia complication Bleeding disorder Family history of premature coronary artery disease Lung disease Cancer Hypertension Stroke Social History Smoking and tobacco status: former smoker Alcohol intake: never Substance/Drug Use: never Physical Exam Const: COMMON NORMALS: alert HENMT: HEAD & SCALP: normal to inspection MOUTH: Normal oral and palatal mucosa present Neck/C-Spine: COMMON NORMALS: full ROM Resp: COMMON NORMALS: normal respiratory effort and clear to auscultation bilaterally AUSCULTATION: clear to auscultation bilaterally Cardio: COMMON NORMALS: regular rate and regular rhythm RATE: regular rate RHYTHM: regular rhythm GI: COMMON NORMALS: Soft to palpation AUSCULTATION: Yes normoactive bowel sounds PALPATION: Yes Soft to palpation Extremity: LEFT LOWER EXTREMITY: Yes lower leg (Increased swelling) and Yes foot & digits (Dorsal redness and tenderness) Neuro: SENSORIUM/ORIENTATION: Yes alert Skin: NARRATIVE SKIN EXAM: Redness to the dorsal left foot Course Vital Signs: Vital signs: Vital Signs Temperature 101.6 F H 11/02/22 19:34 Pulse Rate 93 11/02/22 19:34 Respiratory Rate 14 11/02/22 19:34 Blood Pressure 117/70 11/02/22 19:34 Pulse Oximetry 94 11/02/22 19:34 Oxygen Delivery Me thod Room Air 11/02/22 19:34 MDM - Extremity (Nontraumatic) Medical Decision Making 67-year-old female comes in today with complaints of redness and swelling to the left lower extremity. On exam we note redness and swelling to the dorsal foot with some mild increase in swelling to the calf and lower leg. Vital signs are normal. Differential diagnosis includes DVT, cellulitis, stasis dermatitis. Laboratory values notes a CRP of 31, increase in white blood cells at 15, CMP shows some chronic kidney disease. Ultrasound of the extremity noted no DVT. Believe the patient probably has some cellulitis. Patient was given 1 g of Rocephin and will be continued on Augmentin 875 mg twice a day for the next 10 days. Patient reported understanding of care plan and need for follow-up or return to the ER. Lab Data 11/02/22 20:25 11/02/22 20:25 Radiology Impressions Foot X-Ray 11/02/22 19:49 IMPRESSION: Increased edematous soft tissue swelling without acute fracture. Venous Duplex 11/02/22 20:50 IMPRESSION: No evidence of deep vein thrombosis. Laboratory Results WBC 15.6 10^3/uL (4.0-10.0) H 11/02/22 20:25 RBC 4.47 10^6/uL (4.1-5.3) 11/02/22 20:25 Hgb 13.4 g/dL (11.5-15.3) 11/02/22 20:25 Hct 43.5 % (37.0-47.0) 11/02/22 20:25 MCV 97.3 fl (81-99) 11/02/22 20:25 MCH 30.0 pg (28.0-34.0) 11/02/22 20:25 MCHC 30.8 g/dL (30.0-36.0) 11/02/22 20:25 RDW 15.0 % (12.1-15.1) 11/02/22 20:25 Plt Count 325 10^3/cmm (130-400) 11/02/22 20:25 MPV 9.3 fL (7.4-10.4) 11/02/22 20:25 Neut % (Auto) 89.1 % 11/02/22 20:25 Lymph % (Auto) 4.8 % 11/02/22 20:25 Jessamine % (Auto) 4.6 % 11/02/22 20:25 Eos % (Auto) 0.7 % 11/02/22 20:25 Baso % (Auto) 0.5 % 11/02/22 20:25 Neut # (Auto) 13.86 10^3/uL (1.8-7.7) H 11/02/22 20:25 Lymph # (Auto) 0.7 10^3/uL (0.8-4.8) L 11/02/22 20:25 Jessamine # (Auto) 0.7 10^3/uL (0.2-0.9) 11/02/22 20:25 Eos # (Auto) 0.1 10^3/uL (0.0-0.8) 11/02/22 20:25 Baso # (Auto) 0.1 10^3/uL (0.0-0.1) 11/02/22 20:25 Nucleated RBC % (auto) 0 % 11/02/22 20:25 Nucleated RBCs # 0.0 /100WBC 11/02/22 20:25 Sodium 137 mmol/L (136-145) 11/02/22 20:25 Potassium 4.3 mmol/L (3.5-5.1) 11/02/22 20:25 Chloride 98 mmol/L (98-107) 11/02/22 20:25 Carbon Dioxide 28 mmol/L (22-29) 11/02/22 20:25 Anion Gap 15.3 (5-19) 11/02/22 20:25 BUN 27 mg/dL (8-23) H 11/02/22 20:25 Creatinine 2.7 mg/dL (0.5-0.9) H 11/02/22 20:25 GFR Calculation 17.5 mL/min (90-130) L 11/02/22 20:25 Glucose 133 mg/dL (65-115) H 11/02/22 20:25 Calculated Osmolality 291 mOsm/kg (285-295) 11/02/22 20:25 Calcium 9.4 mg/dL (8.5-10.5) 11/02/22 20:25 Total Bilirubin 0.5 mg/dL (0.15-1.2) 11/02/22 20:25 AST 10 U/L (0-32) 11/02/22 20:25 ALT 10 U/L (0-33) 11/02/22 20:25 Alkaline Phosphatase 104 U/L (35-105) 11/02/22 20:25 C-Reactive Protein 31.1 mg/L (0.0-4.9) H 11/02/22 20:25 Total Protein 6.3 g/dL (6.6-8.7) L 11/02/22 20:25 Albumin 3.8 g/dL (3.5-5.2) 11/02/22 20:25 Globulin 2.5 g/dL (1.3-4.6) 11/02/22 20:25 Discharge Plan Discharge Patient Disposition: Home Clinical Impression: Cellulitis Qualifiers: Site of cellulitis: extremity Site of cellulitis of extremity: lower extremity Laterality: left Qualified Code(s): L03.116 - Cellulitis of left lower limb Condition: Stable Prescriptions: New amoxicillin-pot clavulanate 875-125 mg tablet 1 tab PO BID Qty: 20 0RF No Action amlodipine 5 mg tablet 5 mg PO DAILY doxycycline hyclate 100 mg tablet,delayed release (DR/EC) 100 mg PO BID Qty: 20 1RF (DME) Diabetic Shoes with 3 inserts See Rx Instructions .ROUTE .MEDSUPPLY Qty: 1 0RF Rx Instructions: As directed, HOME levothyroxine 100 mcg tablet See Rx Instructions .ROUTE .COMPLEX Qty: 90 1RF Dose Instruction: Take 1 tablet by mouth once daily Rx Instructions: Take 1 tablet by mouth once daily (DME) DME: Walker Unit See Rx Instructions .Route Qty: 1 0RF Rx Instructions: with wheels and a seat furosemide 40 mg tablet 60 mg PO BID@0800,1999 Qty: 240 1RF Rx Instructions: Must be seen for further refills metoprolol tartrate 25 mg tablet See Rx Instructions .ROUTE .COMPLEX Qty: 90 1RF Dose Instruction: Take 1/2 (one-half) tablet by mouth twice daily Rx Instructions: Take 1/2 (one-half) tablet by mouth twice daily spironolactone 25 mg tablet See Rx Instructions .ROUTE .COMPLEX Qty: 90 3RF Dose Instruction: TAKE 1 TABLET BY MOUTH ONCE DAILY FOR SWELLING Rx Instructions: TAKE 1 TABLET BY MOUTH ONCE DAILY FOR SWELLING albuterol sulfate [ProAir HFA] 90 mcg/actuation HFA aerosol inhaler 2 puff inhalation QID 30 Days Qty: 8.5 5RF amiodarone [Pacerone] 100 mg tablet See Rx Instructions .ROUTE .COMPLEX Qty: 180 3RF Dose Instruction: Take 1 tablet by mouth twice daily Rx Instructions: Take 1 tablet by mouth twice daily hydrocodone-acetaminophen 7.5-325 mg tablet 1 tab PO Q12H PRN (Reason: pain) 30 Days Qty: 60 0RF Rx Instructions: 30 day supply. rivaroxaban 20 mg tablet 20 mg PO DAILY@0800 Qty: 30 0RF cholecalciferol (vitamin D3) 125 mcg (5,000 unit) Tablet 5,000 unit PO DAILY Qty: 30 0RF Discharge Orders: Discharge ED (Routine); Ordered 11/02/22 Ordered By: Hipolito Montez Referrals: Anna Kaufman MD [Primary Care Provider] - Discharge Diet: Usual diet Discharge Activity: Increase activity as tolerated Patient Instructions: Cellulitis (ED) Activity Restrictions/Additional Instructions: Home and rest. Elevate foot as much as possible. Use acetaminophen as needed for fever or pain. Take antibiotics as directed. Follow-up with primary care in 2 to 3 days for recheck. Return to ER for worsening symptoms such as inability to hold fluids down, increasing redness and swelling, persistent fever. Coding Level of Care Code ED Business Services Analyst for Irving Rosario
--- NOTE | 2022-11-02 20:50 | USR_ITS ---
PROCEDURE INFORMATION: Exam: US Duplex Left Lower Extremity Veins, Limited Exam date and time: 11/02/2022 9:11 PM Age: 67 years old Clinical indication: Edema, localized; Lower extremity, left; Patient HX: Lle edema / erythema x 8 days. No history of dvt per patient. History of cellulitis, multiple times. ; Additional info: Redness and swelling, R/O dvt TECHNIQUE: Imaging protocol: Real-time duplex ultrasound of the left extremity with 2-D perkins scale, color Doppler flow and spectral waveform analysis including responses to compression and other maneuvers (when performed) with image documentation. Limited exam focused on the left lower extremity veins. COMPARISON: 1. CR (LOW EXM, ) 11/02/2022 7:53 PM 2. CR XR foot LT min 3V* [id number] 10/25/2022 11:23 AM FINDINGS: Left deep veins: Unremarkable. The common femoral, femoral, proximal profunda femoral and popliteal veins are patent without thrombus. Normal Doppler waveforms. Normal compressibility and/or augmentation response. Interrogated posterior tibial and peroneal veins are unremarkable. Left superficial veins: Unremarkable. Saphenofemoral junction is patent without thrombus. Soft tissues: Superficial edema at the level of the calf. US/[place] [id number] IMPRESSION: No evidence of deep vein thrombosis.
[2022-11-02 21:11] LABS: Alanine Aminotransferase 10 U/L (0-33); Albumin Level 3.8 g/dL (3.5-5.2); Alkaline Phosphatase 104 U/L (35-105); Anion Gap 15.3 (5-19); Aspartate Amino Transferase 10 U/L (0-32); Blood Urea Nitrogen 27 mg/dL (8-23); C Reactive Protein 31.1 mg/L (0.0-4.9); Calcium 9.4 mg/dL (8.5-10.5); Carbon Dioxide 28 mmol/L (22-29); Chloride 98 mmol/L (98-107); Globulin 2.5 g/dL (1.3-4.6); Glomerular Filtration Rate 17.5 mL/min (90-130); Glucose 133 mg/dL (65-115); Osmolality Calculated 291 mOsm/kg (285-295); Potassium 4.3 mmol/L (3.5-5.1); Sodium 137 mmol/L (136-145); Total Bilirubin 0.5 mg/dL (0.15-1.2); Total Protein 6.3 g/dL (6.6-8.7)
[2022-11-02] MEDS: cefTRIAXone 1,000 MG in water for injection-sterile 2.1 ML 1 MG IM (21:48)
[2022-11-02] MEDS: acetaminophen 500 mg Tablet 1000 MG PO (21:48)
== END 2022-11-02 22:09 | disposition home or self-care (01) ==
PROVIDERS: Emergency Medicine; Emergency Provider Nurse Practitioner Family; PCP Family Medicine
DX: L03.116 Cellulitis of left lower limb (principal); Z87.891 Personal history of nicotine dependence; I11.0 Hypertensive heart disease with heart failure; I50.9 Heart failure, unspecified; E13.9 Other specified diabetes mellitus without complications; E78.2 Mixed hyperlipidemia
CPT/HCPCS: 36415; 73630; 80053; 85025; 86140; 93971; 96372; 99284; J0696

== ENCOUNTER 2022-11-04 07:02 | Emergency (ER) | payer MEDICARE, MEDICAID, SELFPAY ==
[2022-11-04 07:00] VITALS: BP 138/80; PULSE 96; TEMP 37.1; O2SAT 93; BMI 30.7
--- NOTE | 2022-11-04 07:15 | W.ED.EXTPRO ---
HPI - Extremity Problem General: Chief complaint: Extremity Problem,Nontraumatic Stated complaint: cellulitis bilateral legs Source: patient Mode of arrival: EMS History of Present Illness: 67-year-old female who presents to the emergency room with complaints of left foot pain. She was seen a few days ago for similar complaints thought to be cellulitis she was given ceftriaxone and started on Augmentin. At that visit she had x-ray as well as venous duplex which was negative for DVT. She does not have any particular calf pain no chest pain no worsening of shortness of breath. She has a history of atrial fibrillation and she is on anticoagulation. No fever sweats or chills. She also has chronic kidney disease and diabetes. Pain is isolated to the foot and ankle does not radiate down the entire length of the leg. MD Complaint: extremity pain and joint pain Onset (ago): day(s) Pain Consistency: constant Location: left (Foot and ankle) Relieving factors: nothing Exacerbating factors: nothing Associated symptoms: Deny arthralgias, chest pain, fever(s), myalgias, rash or short of breath Review of Systems Const: Denies: fever(s) or chills Card: Denies: chest pain Resp: Denies: dyspnea, productive cough or non-productive cough GI: Denies: abdominal pain, nausea or vomiting : Denies: flank pain, dysuria, urinary frequency or urinary urgency Skin/Breast: Denies: rash PFSH ED PFSH: Medical History Atrial fibrillation CHF (congestive heart failure) Pt is wanting to wait for the Stress test till the VIrus is gone! Diabetes 1.5, managed as type 2 GERD (gastroesophageal reflux disease) Hypercholesteremia Hypertension Hypothyroid Lumbar disc disease with radiculopathy Metatarsalgia of both feet Mixed hyperlipidemia Nicotine abuse Skin tag, acquired Type 2 diabetes mellitus with diabetic polyneuropathy Venous insufficiency of both lower extremities Surgical History Hx laparoscopic cholecystectomy Hx of appendectomy Hx of cholecystectomy Hx of tubal ligation Family History Denies family history of Diabetes CAD (coronary artery disease) Clotting disorder Dementia Hyperlipidemia Psychiatric illness Chronic kidney disease (CKD) Suicide Anesthesia complication Bleeding disorder Family history of premature coronary artery disease Lung disease Cancer Hypertension Stroke Social History Smoking and tobacco status: former smoker Alcohol intake: never Substance/Drug Use: never Physical Exam Const: COMMON NORMALS: no acute distress GENERAL APPEARANCE: cooperative and comfortable ORIENTATION/CONSCIOUSNESS: Yes awake, Yes oriented to person, Yes oriented to place and Yes oriented to time HENMT: COMMON NORMALS: normocephalic, atraumatic and hearing grossly normal bilaterally HEAD & SCALP: normocephalic and atraumatic Resp: COMMON NORMALS: normal respiratory effort, No retractions, No use of accessory muscles and clear to auscultation bilaterally AUSCULTATION: clear to auscultation bilaterally Cardio: COMMON NORMALS: regular rate, regular rhythm and No murmurs present (Cardio) RATE: regular rate RHYTHM: regular rhythm GI: COMMON NORMALS: Soft to palpation and No hepatosplenomegaly present AUSCULTATION: Yes normoactive bowel sounds PALPATION: Yes Soft to palpation, No Tenderness to palpation present (GI), No Guarding due to palpation present (GI) and Yes No hepatosplenomegaly present Extremity: COMMON NORMALS: normal to inspection, capillary refill normal, no clubbing, cyanosis or edema, no calf tenderness and no pedal edema OTHER: Left foot?dorsalis pedis pulse and posterior tibialis normal no redness no erythema no significant edema negative Homans Neuro: SENSORIUM/ORIENTATION: Yes oriented to person, Yes oriented to place and Yes oriented to time Skin: COMMON NORMALS: no rashes or lesions noted GENERAL SKIN EXAM: no rashes or lesions noted Course Vital Signs: Vital signs: Vital Signs Temperature 98.7 F 11/04/22 07:00 Pulse Rate 92 11/04/22 11:17 Respiratory Rate 17 11/04/22 11:17 Blood Pressure 130/92 11/04/22 11:17 Pulse Oximetry 97 11/04/22 11:17 Oxygen Delivery Me thod Nasal Cannula 11/04/22 09:40 Oxygen Flow Rate 2 11/04/22 09:40 MDM - Extremity (Nontraumatic) Medical Decision Making Patient seen 2 days ago on diagnosed with cellulitis started on Augmentin she is still taking the Augmentin. After treatment here her symptoms are better. She is exquisitely tender to even light touch there is no joint effusion or fracture on the x-ray. We ended up doing a CT. Because her creatinine we are not able to do with contrast there is no joint effusion no occult fracture and no breakdown of bone just significant arthritic changes. Gout would be a consideration however am concerned that with her elevated white count she does have a cellulitis and steroids would make it worse. Discussed with Dr. Rea on-call for podiatry he concurs we will continue the antibiotics uses hydrocodone for pain podiatry will reevaluate her in the morning return if she has further problems. Medical Records I reviewed the patient's medical records. Lab Data I reviewed the patient's lab results. 11/04/22 07:12 11/04/22 07:12 Radiology Impressions Ankle X-Ray 11/04/22 07:16 IMPRESSION: No fractures or dislocations of the left ankle. Foot X-Ray 11/04/22 07:16 IMPRESSION: No fractures or dislocations of the left foot. Ankle CT 11/04/22 09:04 IMPRESSION: 1. Diffuse soft tissue edema lower leg and ankle extending into the visualized findings.Correlation for cellulitis. 2. No drainable fluid collections. 3. No acute fractures. 4. Subchondral cystic changes described above. Laboratory Results WBC 15.0 10^3/uL (4.0-10.0) H 11/04/22 07:12 RBC 4.73 10^6/uL (4.1-5.3) 11/04/22 07:12 Hgb 13.9 g/dL (11.5-15.3) 11/04/22 07:12 Hct 45.8 % (37.0-47.0) 11/04/22 07:12 MCV 96.8 fl (81-99) 11/04/22 07:12 MCH 29.4 pg (28.0-34.0) 11/04/22 07:12 MCHC 30.3 g/dL (30.0-36.0) 11/04/22 07:12 RDW 15.0 % (12.1-15.1) 11/04/22 07:12 Plt Count 323 10^3/cmm (130-400) 11/04/22 07:12 MPV 9.5 fL (7.4-10.4) 11/04/22 07:12 Neut % (Auto) 86.6 % 11/04/22 07:12 Lymph % (Auto) 5.9 % 11/04/22 07:12 [place] % (Auto) 6.2 % 11/04/22 07:12 Eos % (Auto) 0.5 % 11/04/22 07:12 Baso % (Auto) 0.5 % 11/04/22 07:12 Neut # (Auto) 12.97 10^3/uL (1.8-7.7) H 11/04/22 07:12 Lymph # (Auto) 0.9 10^3/uL (0.8-4.8) 11/04/22 07:12 [place] # (Auto) 0.9 10^3/uL (0.2-0.9) 11/04/22 07:12 Eos # (Auto) 0.1 10^3/uL (0.0-0.8) 11/04/22 07:12 Baso # (Auto) 0.1 10^3/uL (0.0-0.1) 11/04/22 07:12 Nucleated RBC % (auto) 0 % 11/04/22 07:12 Nucleated RBCs # 0.0 /100WBC 11/04/22 07:12 Sodium 138 mmol/L (136-145) 11/04/22 07:12 Potassium 4.2 mmol/L (3.5-5.1) 11/04/22 07:12 Chloride 97 mmol/L (98-107) L 11/04/22 07:12 Carbon Dioxide 28 mmol/L (22-29) 11/04/22 07:12 Anion Gap 17.2 (5-19) 11/04/22 07:12 BUN 27 mg/dL (8-23) H 11/04/22 07:12 Creatinine 2.4 mg/dL (0.5-0.9) H 11/04/22 07:12 GFR Calculation 20.0 mL/min (90-130) L 11/04/22 07:12 Glucose 158 mg/dL (65-115) H 11/04/22 07:12 Calculated Osmolality 294 mOsm/kg (285-295) 11/04/22 07:12 Calcium 9.5 mg/dL (8.5-10.5) 11/04/22 07:12 Total Bilirubin 0.8 mg/dL (0.15-1.2) 11/04/22 07:12 AST 12 U/L (0-32) 11/04/22 07:12 ALT 11 U/L (0-33) 11/04/22 07:12 Alkaline Phosphatase 112 U/L (35-105) H 11/04/22 07:12 C-Reactive Protein 177.1 mg/L (0.0-4.9) H 11/04/22 07:12 Total Protein 6.7 g/dL (6.6-8.7) 11/04/22 07:12 Albumin 4.0 g/dL (3.5-5.2) 11/04/22 07:12 Globulin 2.7 g/dL (1.3-4.6) 11/04/22 07:12 Discharge Plan Discharge Patient Disposition: Home Clinical Impression: Cellulitis, Arthritis, midfoot, Type 2 diabetes mellitus with diabetic polyneuropathy Condition: Stable Prescriptions: No Action amlodipine 5 mg tablet 5 mg PO DAILY (DME) Diabetic Shoes with 3 inserts See Rx Instructions .ROUTE .MEDSUPPLY Qty: 1 0RF Rx Instructions: As directed, HOME (DME) DME: Walker Unit See Rx Instructions .Route Qty: 1 0RF Rx Instructions: with wheels and a seat furosemide 40 mg tablet 60 mg PO BID@0800,1999 Qty: 240 1RF albuterol sulfate [ProAir HFA] 90 mcg/actuation HFA aerosol inhaler 2 puff inhalation QID 30 Days Qty: 8.5 5RF hydrocodone-acetaminophen 7.5-325 mg tablet 1 tab PO Q12H PRN (Reason: pain) 30 Days Qty: 60 0RF rivaroxaban 20 mg tablet 20 mg PO DAILY@0800 Qty: 30 0RF cholecalciferol (vitamin D3) 125 mcg (5,000 unit) Tablet 5,000 unit PO DAILY Qty: 30 0RF amoxicillin-pot clavulanate 875-125 mg tablet 1 tab PO BID Qty: 20 0RF spironolactone 25 mg tablet 25 mg PO DAILY levothyroxine 100 mcg tablet 100 mcg PO DAILY Pacerone 100 mg tablet 100 mg PO DAILY metoprolol tartrate 25 mg tablet 12.5 mg PO BID Discharge Orders: Discharge ED (Routine); Ordered 11/04/22 Ordered By: Eros Oglesby Referrals: Anna Kaufman MD [Primary Care Provider] - Patient Instructions: Opioid Safety, Pain Management Activity Restrictions/Additional Instructions: You were seen today for foot pain. X-rays did not show any acute fractures a CT was done unfortunately we had to do without contrast because of your kidney function shows a lot of soft tissue swelling but no joint effusion. After reviewing your case with the television journalist we recommend you continue the antibiotics pain medications elevate ice or heat as for comfort. And they will see you first thing in the morning at the podiatry clinic for worsening or changes symptoms return to the emergency room. Coding Level of Care Code ED Compressor House Operator for Irving Rosario
--- NOTE | 2022-11-04 07:16 | XR_ITS ---
WS: [id number] EXAMINATION: XR foot LT min 3V* [id number] REASON FOR EXAM: pain COMPARISON: 11/02/2022 ORDER DATE: 11/04/2022 7:26 AM TECHNIQUE: 3 views of the left foot were obtained. X-RAY FINDINGS: There are no fractures or dislocations. No focal abnormal soft tissue swelling. Joint spaces are pres erved. The curvilinear density between the first and second metatarsals is no longer present presumab ly artifact. XR/XR foot LT min 3V* [id number] IMPRESSION: No fractures or dislocations of the left foot.
--- NOTE | 2022-11-04 07:16 | XR_ITS ---
WS: [id number] EXAMINATION: XR ankle LT min 3V* [id number] REASON FOR EXAM: pain COMPARISON: None available. ORDER DATE: 11/04/2022 7:26 AM TECHNIQUE: 3 views of the left ankle were obtained. X-RAY FINDINGS: No sign of acute osseous or soft tissue abnormality. Prominent plantar calcaneal spur XR/XR ankle LT min 3V* [id number] IMPRESSION: No fractures or dislocations of the left ankle.
[2022-11-04 07:28] LABS: Basophils # 0.1 10^3/uL (0.0-0.1); Basophils % 0.5 %; Eosinophils # 0.1 10^3/uL (0.0-0.8); Eosinophils % 0.5 %; Hematocrit 45.8 % (37.0-47.0); Hemoglobin 13.9 g/dL (11.5-15.3); Lymphocytes # 0.9 10^3/uL (0.8-4.8); Lymphocytes % 5.9 %; Mean Corpuscular HGB Conc 30.3 g/dL (30.0-36.0); Mean Corpuscular Hemoglobin 29.4 pg (28.0-34.0); Mean Corpuscular Volume 96.8 fl (81-99); Mean Platelet Volume 9.5 fL (7.4-10.4); Monocytes # 0.9 10^3/uL (0.2-0.9); Monocytes % 6.2 %; Neutrophils # 12.97 10^3/uL (1.8-7.7); Neutrophils % 86.6 %; Nucleated Red Blood Cells % 0 %; Platelet Count 323 10^3/cmm (130-400); Red Blood Count 4.73 10^6/uL (4.1-5.3)
[2022-11-04 07:53] LABS: Alanine Aminotransferase 11 U/L (0-33); Alkaline Phosphatase 112 U/L (35-105); Anion Gap 17.2 (5-19); Aspartate Amino Transferase 12 U/L (0-32); Blood Urea Nitrogen 27 mg/dL (8-23); Calcium 9.5 mg/dL (8.5-10.5); Carbon Dioxide 28 mmol/L (22-29); Chloride 97 mmol/L (98-107); Globulin 2.7 g/dL (1.3-4.6); Glucose 158 mg/dL (65-115); Osmolality Calculated 294 mOsm/kg (285-295); Potassium 4.2 mmol/L (3.5-5.1); Sodium 138 mmol/L (136-145); Total Bilirubin 0.8 mg/dL (0.15-1.2); Total Protein 6.7 g/dL (6.6-8.7)
[2022-11-04] MEDS: dexamethasone 10 mg/mL INJ IVP (08:12)
--- NOTE | 2022-11-04 09:04 | CT_ITS ---
WS: [id number] NONCONTRAST CT LEFT ANKLE TECHNIQUE: Noncontrast CT LEFT ankle with coronal and sagittal reformatted images. CLINICAL INFORMATION: pain swelling COMPARISON: None. DLP: 133.[address] scans at [facility] use at least one of these dose optimization techniques: automated e xposure control; mA and/or kV adjustment per patient size (includes targeted exams where dose is matc hed to clinical indication); or iterative reconstruction. FINDINGS: Normal ankle mortise. Normal medial and lateral malleolus. Osteopenia. Plantar calcaneal spurring. Sm all Achilles enthesophyte. Hammertoe deformities. Degenerative changes involving the midfoot and tars al bones. Degenerative arthritis at the TMT joints with subchondral cystic changes. No acute fracture s. Moderate diffuse soft tissue edema lower leg and ankle extending into the visualized foot. No evid ence of drainable abscess or fluid collection. Subchondral cystic changes involving the talocalcaneal articulation. Normal talonavicular joint. Subc hondral cystic changes involving the distal fibula medially. Talar dome is intact. No evidence of nara scular necrosis. CT/CT ankle LT wo con* [id number] IMPRESSION: 1. Diffuse soft tissue edema lower leg and ankle extending into the visualized findings.Correlation for cellulitis. 2. No drainable fluid collections. 3. No acute fractures. 4. Subchondral cystic changes described above.
[2022-11-04 09:27] LABS: C Reactive Protein 177.1 mg/L (0.0-4.9)
[2022-11-04 09:40] VITALS: O2SAT 84; O2SAT 93
[2022-11-04 11:17] VITALS: BP 130/92; PULSE 92; RESP 17; O2SAT 97
== END 2022-11-04 11:42 | disposition home or self-care (01) ==
PROVIDERS: Emergency Provider Family Medicine; PCP Family Medicine
DX: L03.116 Cellulitis of left lower limb (principal); M19.072 Primary osteoarthritis, left ankle and foot; E11.42 Type 2 diabetes mellitus with diabetic polyneuropathy; Z87.891 Personal history of nicotine dependence; I11.0 Hypertensive heart disease with heart failure; I50.9 Heart failure, unspecified; E78.2 Mixed hyperlipidemia
CPT/HCPCS: 36415; 73610; 73630; 73700; 80053; 85025; 86140; 87040; 96374; 99285; J1100

== ENCOUNTER → 2022-11-12 11:25 | Outpatient (BNVA) | payer MEDICARE, MEDICAID, SELFPAY | PROVIDERS: PCP Family Medicine; Visit Provider Family Medicine | DX: E78.2 Mixed hyperlipidemia (principal); E11.42 Type 2 diabetes mellitus with diabetic polyneuropathy; I48.91 Unspecified atrial fibrillation | CPT/HCPCS: 80069; 82043; 82310; 83970; 85025 ==

== ENCOUNTER → 2022-11-17 11:24 | Outpatient (BNVA) | payer MEDICARE, MEDICAID, SELFPAY | PROVIDERS: PCP Family Medicine; Visit Provider Podiatrist Foot & Ankle Surgery | DX: I73.9 Peripheral vascular disease, unspecified; M14.672 Charcot's joint, left ankle and foot; E11.42 Type 2 diabetes mellitus with diabetic polyneuropathy; Z46.89 Encounter for fitting and adjustment of other specified devices | CPT/HCPCS: 73630; 97760; 99214; L4361 ==

== ENCOUNTER 2022-11-17 14:15 | Outpatient (CLI) | payer MEDICARE, MEDICAID, SELFPAY | END 2022-11-17 14:16 | disposition home or self-care (01) | LOC: SPT 14:16 | PROVIDERS: PCP Family Medicine; Visit Provider Podiatrist Foot & Ankle Surgery | DX: Z46.89 Encounter for fitting and adjustment of other specified devices (principal); M14.672 Charcot's joint, left ankle and foot | CPT/HCPCS: 97760; L4361 ==

== ENCOUNTER → 2022-12-08 07:47 | Outpatient (BNVA) | payer MEDICARE, MEDICAID, SELFPAY | PROVIDERS: PCP Family Medicine; Visit Provider Podiatrist Foot & Ankle Surgery | DX: M14.672 Charcot's joint, left ankle and foot (principal); E11.42 Type 2 diabetes mellitus with diabetic polyneuropathy; I73.9 Peripheral vascular disease, unspecified | CPT/HCPCS: 73630; 99213 ==

== ENCOUNTER → 2022-12-20 09:45 | Outpatient (BNVA) | payer MEDICARE, MEDICAID, SELFPAY | PROVIDERS: PCP Family Medicine; Visit Provider Podiatrist Foot & Ankle Surgery | DX: M14.672 Charcot's joint, left ankle and foot (principal); E11.42 Type 2 diabetes mellitus with diabetic polyneuropathy; I73.9 Peripheral vascular disease, unspecified | CPT/HCPCS: 73630; 99214 ==

== ENCOUNTER → 2023-01-03 14:41 | Outpatient (BNVA) | payer MEDICARE, MEDICAID, SELFPAY | PROVIDERS: PCP Family Medicine; Visit Provider Internal Medicine Cardiovascular Disease | DX: I34.0 Nonrheumatic mitral (valve) insufficiency (principal); I48.0 Paroxysmal atrial fibrillation; Z79.899 Other long term (current) drug therapy; E03.9 Hypothyroidism, unspecified; I11.0 Hypertensive heart disease with heart failure; I50.32 Chronic diastolic (congestive) heart failure; E78.2 Mixed hyperlipidemia; E11.42 Type 2 diabetes mellitus with diabetic polyneuropathy; Z87.891 Personal history of nicotine dependence; Z79.01 Long term (current) use of anticoagulants | CPT/HCPCS: 99214 ==

== ENCOUNTER → 2023-01-05 07:49 | Outpatient (BNVA) | payer MEDICARE, MEDICAID, SELFPAY | PROVIDERS: PCP Family Medicine; Visit Provider Podiatrist Foot & Ankle Surgery | DX: M14.672 Charcot's joint, left ankle and foot (principal); I73.9 Peripheral vascular disease, unspecified; E11.42 Type 2 diabetes mellitus with diabetic polyneuropathy; L60.3 Nail dystrophy | CPT/HCPCS: 73630; 99213 ==

== ENCOUNTER → 2023-01-13 08:17 | Outpatient (BNVA) | payer MEDICARE, MEDICAID, SELFPAY | PROVIDERS: PCP Family Medicine; Visit Provider Family Medicine | DX: E78.00 Pure hypercholesterolemia, unspecified (principal); E11.42 Type 2 diabetes mellitus with diabetic polyneuropathy; I10 Essential (primary) hypertension; E13.9 Other specified diabetes mellitus without complications; I48.91 Unspecified atrial fibrillation; N17.9 Acute kidney failure, unspecified; N18.9 Chronic kidney disease, unspecified; I48.0 Paroxysmal atrial fibrillation; Z79.899 Other long term (current) drug therapy; R06.02 Shortness of breath | CPT/HCPCS: 80053; 83036; 83880; 84443; 85025 ==

== ENCOUNTER → 2023-01-25 08:29 | Outpatient (BNVA) | payer MEDICARE, MEDICAID, SELFPAY | PROVIDERS: PCP Family Medicine; Visit Provider Podiatrist Foot & Ankle Surgery | DX: M14.672 Charcot's joint, left ankle and foot (principal); I73.9 Peripheral vascular disease, unspecified; E11.42 Type 2 diabetes mellitus with diabetic polyneuropathy | CPT/HCPCS: 73630; 99213 ==

== ENCOUNTER → 2023-02-28 14:17 | Outpatient (BNVA) | payer MEDICARE, MEDICAID, SELFPAY | PROVIDERS: PCP Family Medicine; Visit Provider Podiatrist Foot & Ankle Surgery | DX: M14.672 Charcot's joint, left ankle and foot (principal); E11.42 Type 2 diabetes mellitus with diabetic polyneuropathy; I73.9 Peripheral vascular disease, unspecified | CPT/HCPCS: 73630; 99213 ==

== ENCOUNTER → 2023-03-16 13:16 | Outpatient (BNVA) | payer MEDICARE, MEDICAID, SELFPAY | PROVIDERS: PCP Family Medicine; Visit Provider Podiatrist Foot & Ankle Surgery | DX: E11.42 Type 2 diabetes mellitus with diabetic polyneuropathy (principal); I73.9 Peripheral vascular disease, unspecified; M14.672 Charcot's joint, left ankle and foot | CPT/HCPCS: 99213 ==

== ENCOUNTER → 2023-04-27 12:57 | Outpatient (BNVA) | payer MEDICARE, MEDICAID, SELFPAY | PROVIDERS: PCP Family Medicine; Visit Provider Family Medicine | DX: E11.42 Type 2 diabetes mellitus with diabetic polyneuropathy (principal); N17.9 Acute kidney failure, unspecified; N18.31 Chronic kidney disease, stage 3a; Z79.899 Other long term (current) drug therapy; I48.0 Paroxysmal atrial fibrillation; I87.2 Venous insufficiency (chronic) (peripheral) | CPT/HCPCS: 80053; 83036; 85025 ==

== ENCOUNTER → 2023-05-26 10:56 | Outpatient (BNVA) | payer MEDICARE, MEDICAID, SELFPAY | PROVIDERS: PCP Family Medicine; Visit Provider Family Medicine | DX: N18.9 Chronic kidney disease, unspecified (principal); Z79.899 Other long term (current) drug therapy | CPT/HCPCS: 80069; 82542; 82570; 84156; 85025 ==

== ENCOUNTER → 2023-07-12 10:35 | Outpatient (BNVA) | payer MEDICARE, MEDICAID, SELFPAY | PROVIDERS: PCP Family Medicine; Visit Provider Podiatrist Foot & Ankle Surgery | DX: E11.42 Type 2 diabetes mellitus with diabetic polyneuropathy (principal); I73.9 Peripheral vascular disease, unspecified; M14.672 Charcot's joint, left ankle and foot; L60.3 Nail dystrophy | CPT/HCPCS: 11721 ==

== ENCOUNTER → 2023-08-08 09:56 | Outpatient (BNVA) | payer MEDICARE, MEDICAID, SELFPAY | PROVIDERS: PCP Family Medicine; Visit Provider Family Medicine | DX: N17.9 Acute kidney failure, unspecified (principal); N18.31 Chronic kidney disease, stage 3a | CPT/HCPCS: 80053 ==

== ENCOUNTER → 2023-08-17 12:46 | Outpatient (BNVA) | payer MEDICARE, MEDICAID, SELFPAY | PROVIDERS: PCP Family Medicine; Visit Provider Podiatrist Foot & Ankle Surgery | DX: M79.671 Pain in right foot; M65.871 Other synovitis and tenosynovitis, right ankle and foot; M19.071 Primary osteoarthritis, right ankle and foot | CPT/HCPCS: 73630; 99213 ==

== ENCOUNTER 2023-08-21 10:27 | Emergency (ER) | payer MEDICARE, MEDICAID, SELFPAY ==
--- NOTE | 2023-08-21 10:28 | XRR_ITS ---
PROCEDURE INFORMATION: Exam: XR Right Foot Exam date and time: 08/21/2023 10:51 AM Age: 68 years old Clinical indication: Pain; Foot; Right TECHNIQUE: Imaging protocol: Radiologic exam of the right foot. Views: 3 or more views. COMPARISON: CR XR foot RT min 3V* [id number] 08/17/2023 12:52 PM FINDINGS: Bones/joints: Moderate plantar calcaneal spurring. No distinct displaced osseous fractures. Soft tissues: Questionable soft tissue swelling about the forefoot. Other findings: Fine detail is obscured by overlying extraneous material. XR/XR foot RT min 3V* [id number] IMPRESSION: 1. Questionable soft tissue swelling about the forefoot. 2. No distinct displaced osseous fractures.
[2023-08-21 10:59] VITALS: BP 111/72; PULSE 66; TEMP 36.6; O2SAT 95
[2023-08-21 11:00] LABS: Basophils # 0.1 10^3/uL (0.0-0.1); Basophils % 0.7 %; Eosinophils # 0.2 10^3/uL (0.0-0.8); Eosinophils % 1.8 %; Hematocrit 48.3 % (36-47); Lymphocytes # 0.9 10^3/uL (0.8-4.8); Lymphocytes % 9.5 %; Mean Corpuscular Hemoglobin 29.5 pg (27-33); Mean Corpuscular Volume 98.2 fl (85-98); Mean Platelet Volume 9.6 fL (7.4-10.4); Monocytes # 0.4 10^3/uL (0.2-0.9); Monocytes % 4.7 %; Neutrophils # 7.56 10^3/uL (1.8-7.7); Neutrophils % 83.1 %; Nucleated Red Blood Cells % 0 %; Platelet Count 294 10^3/cmm (157-399); Red Blood Count 4.92 10^6/uL (3.85-5.65); Red Cell Distribution Width 14.5 % (12.1-15.1); White Blood Count 9.09 10^3/uL (3.29-11.43)
[2023-08-21 11:03] LABS: Erythrocyte Sedimentation Rate 32 mm/hr (0-15)
[2023-08-21 11:17] LABS: C Reactive Protein 37.9 mg/L (0.0-4.9)
--- NOTE | 2023-08-21 11:17 | USR_ITS ---
PROCEDURE INFORMATION: Exam: US Duplex Right Lower Extremity Veins, Limited Exam date and time: 08/21/2023 11:25 AM Age: 68 years old Clinical indication: Edema, localized; Lower extremity, right; Additional info: Swelling TECHNIQUE: Imaging protocol: Real-time duplex ultrasound of the right extremity with 2-D perkins scale, color Doppler flow and spectral waveform analysis including responses to compression and other maneuvers (when performed) with image documentation. Limited exam was focused on the right lower extremity veins. COMPARISON: CT foot RT wo con* [id number] 04/20/2022 9:08 PM FINDINGS: Right deep veins: Unremarkable. The common femoral, femoral, proximal profunda femoral and popliteal veins are patent without thrombus. Normal Doppler waveforms. Normal compressibility and/or augmentation response. Superficial veins: Greater saphenous vein at the saphenofemoral junction is patent without thrombus. Soft tissues: Unremarkable. US/[place] [id number] IMPRESSION: No evidence of deep vein thrombosis.
--- NOTE | 2023-08-21 11:18 | W.ED.EXTPRO ---
HPI - Extremity Problem General: Chief complaint: Extremity Problem,Nontraumatic Stated complaint: rigth foot pain, redness, swollen Time Seen by Provider: 08/21/23 11:12 Source: patient Mode of arrival: ambulatory Limitations: no limitations History of Present Illness: 68-year-old female states she been having right foot pain for the last week. States she had some swelling in that right foot and ankle as well with some erythema over the lateral portion of the foot. She denies any fever she was seen by the gericare aide teacher. She states that he pulled over thing and looked good there. He denies any recent injuries. Associated symptoms: Deny chest pain, fever(s) or rash Review of Systems Const: Denies: fever(s) or chills ENMT: Denies: throat pain or dental pain Card: Denies: chest pain Resp: Denies: dyspnea GI: Denies: abdominal pain, nausea, vomiting or diarrhea Musc: Reports: extremity pain; Denies: neck pain or back pain Skin/Breast: Denies: rash Neuro: Denies: headache(s) PFSH ED PFSH: Medical History Metatarsalgia of both feet Venous insufficiency of both lower extremities Skin tag, acquired Lumbar disc disease with radiculopathy Nicotine abuse Hypothyroid CHF (congestive heart failure) Pt is wanting to wait for the Stress test till the VIrus is gone! Mixed hyperlipidemia Atrial fibrillation GERD (gastroesophageal reflux disease) Diabetes 1.5, managed as type 2 Hypercholesteremia Type 2 diabetes mellitus with diabetic polyneuropathy Hypertension Surgical History Hx laparoscopic cholecystectomy Hx of appendectomy Hx of tubal ligation Hx of cholecystectomy Family History Denies family history of Diabetes CAD (coronary artery disease) Clotting disorder Dementia Hyperlipidemia Psychiatric illness Chronic kidney disease (CKD) Suicide Anesthesia complication Bleeding disorder Family history of premature coronary artery disease Lung disease Cancer Hypertension Stroke Social History Smoking and tobacco/nicotine status: former use of tobacco/nicotine Alcohol intake: never Substance/Drug Use: never Physical Exam Const: COMMON NORMALS: no acute distress, patient oriented x3 and healthy appearing HENMT: COMMON NORMALS: normocephalic and atraumatic HEAD & SCALP: normocephalic and atraumatic Eye: COMMON NORMALS: conjunctivae normal CONJUNCTIVA: Yes conjunctivae normal Neck/C-Spine: COMMON NORMALS: supple Chest: COMMONS NORMALS: normal inspection of the chest Resp: COMMON NORMALS: normal respiratory effort Extremity: COMMON NORMALS: full ROM NARRATIVE EXTREMITY EXAM: Slight erythema to right lateral foot Neuro: COMMON NORMALS: patient oriented x3, moves all extremities and no focal motor deficits Psych: COMMON NORMALS: mental status grossly normal, Normal thought process present and cooperative THOUGHT PROCESS: Normal thought process present Skin: COMMON NORMALS: no rashes or lesions noted and no wounds GENERAL SKIN EXAM: no rashes or lesions noted Course Vital Signs: Vital signs: Vital Signs Temperature 97.9 F 08/21/23 10:59 Pulse Rate 66 08/21/23 10:59 Blood Pressure 111/72 08/21/23 10:59 Pulse Oximetry 95 08/21/23 10:59 Oxygen Delivery Me thod Room Air 08/21/23 10:59 MDM - Extremity (Nontraumatic) Medical Decision Making Patient presents with pain along with erythema to the right foot possible mild cellulitis ultrasound here is negative she stable for discharge we will start her on Keflex she is follow-up with PCP return if worsening. Medical Records I reviewed the patient's medical records. Lab Data I reviewed the patient's lab results. 08/21/23 10:52 Laboratory Results WBC 9.09 10^3/uL (3.29-11.43) 08/21/23 10:52 RBC 4.92 10^6/uL (3.85-5.65) 08/21/23 10:52 Hgb 14.50 g/dL (11.27-16.99) 08/21/23 10:52 Hct 48.3 % (36-47) H 08/21/23 10:52 MCV 98.2 fl (85-98) H 08/21/23 10:52 MCH 29.5 pg (27-33) 08/21/23 10:52 MCHC 30.0 g/dL (30-55) 08/21/23 10:52 RDW 14.5 % (12.1-15.1) 08/21/23 10:52 Plt Count 294 10^3/cmm (157-399) 08/21/23 10:52 MPV 9.6 fL (7.4-10.4) 08/21/23 10:52 Neut % (Auto) 83.1 % 08/21/23 10:52 Lymph % (Auto) 9.5 % 08/21/23 10:52 [place] % (Auto) 4.7 % 08/21/23 10:52 Eos % (Auto) 1.8 % 08/21/23 10:52 Baso % (Auto) 0.7 % 08/21/23 10:52 Neut # (Auto) 7.56 10^3/uL (1.8-7.7) 08/21/23 10:52 Lymph # (Auto) 0.9 10^3/uL (0.8-4.8) 08/21/23 10:52 [place] # (Auto) 0.4 10^3/uL (0.2-0.9) 08/21/23 10:52 Eos # (Auto) 0.2 10^3/uL (0.0-0.8) 08/21/23 10:52 Baso # (Auto) 0.1 10^3/uL (0.0-0.1) 08/21/23 10:52 Nucleated RBC % (auto) 0 % 08/21/23 10:52 Nucleated RBCs # 0.0 /100WBC 08/21/23 10:52 ESR 32 mm/hr (0-15) H 08/21/23 10:52 C-Reactive Protein 37.9 mg/L (0.0-4.9) H 08/21/23 10:52 All radiology interpretation(s) finalized by discharge Discharge Plan Discharge Patient Disposition: Home Clinical Impression: Cellulitis Condition: Stable Prescriptions: New cephalexin 500 mg capsule 500 mg PO TID 7 Days Qty: 21 0RF No Action amlodipine 5 mg tablet 5 mg PO DAILY (DME) Diabetic Shoes with 3 inserts See Rx Instructions .ROUTE .MEDSUPPLY Qty: 1 0RF Rx Instructions: As directed, HOME (DME) DME: Walker Unit See Rx Instructions .Route Qty: 1 0RF Rx Instructions: with wheels and a seat (DME) [place] boot See Rx Instructions .Route .MEDSUPPLY Qty: 1 0RF Rx Instructions: As directed (DME) cam walker See Rx Instructions .Route .MEDSUPPLY Qty: 1 0RF Rx Instructions: As directed Xarelto 20 mg tablet See Rx Instructions .ROUTE .COMPLEX Qty: 90 3RF Dose Instruction: TAKE 1 TABLET BY MOUTH ONCE DAILY AT 8 AM Rx Instructions: TAKE 1 TABLET BY MOUTH ONCE DAILY AT 8 AM (DME) Accutrend Glucose test strips Strip See Rx Instructions .Route Qty: 50 6RF Rx Instructions: As directed. Type 2 diabetes: once daily testing levothyroxine 100 mcg tablet See Rx Instructions .ROUTE .COMPLEX Qty: 90 0RF Dose Instruction: Take 1 tablet by mouth once daily Rx Instructions: Take 1 tablet by mouth once daily metoprolol tartrate 25 mg tablet See Rx Instructions .ROUTE .COMPLEX Qty: 90 0RF Dose Instruction: Take 1/2 (one-half) tablet by mouth twice daily Rx Instructions: Take 1/2 (one-half) tablet by mouth twice daily albuterol sulfate 90 mcg/actuation HFA aerosol inhaler See Rx Instructions .ROUTE .COMPLEX Qty: 9 3RF Dose Instruction: INHALE 2 PUFFS BY MOUTH 4 TIMES DAILY FOR 30 DAYS Rx Instructions: INHALE 2 PUFFS BY MOUTH 4 TIMES DAILY FOR 30 DAYS furosemide 40 mg tablet 60 mg PO BID@0800,2000 Qty: 240 1RF spironolactone 25 mg tablet See Rx Instructions .ROUTE .COMPLEX Qty: 30 5RF Dose Instruction: TAKE 1 TABLET BY MOUTH ONCE DAILY FOR SWELLING Rx Instructions: TAKE 1 TABLET BY MOUTH ONCE DAILY FOR SWELLING hydrocodone-acetaminophen 7.5-325 mg tablet 1 tab PO Q12H PRN (Reason: pain) 30 Days Qty: 60 0RF cholecalciferol (vitamin D3) 125 mcg (5,000 unit) Tablet 5,000 unit PO DAILY Qty: 30 0RF Pacerone 100 mg tablet 100 mg PO DAILY Discharge Orders: Discharge ED (Routine); Ordered 08/21/23 Ordered By: Hugo Giraldo Referrals: Anna Kaufman MD [Primary Care Provider] - 4-7 days Discharge Diet: Advance as tolerated Discharge Activity: Resume usual activity Patient Instructions: Cellulitis (ED) Coding Level of Care Code ED Roll Or Tape Edge Machine Operator for Irving Rosario
[2023-08-21] MEDS: cephALEXin 500 mg Capsule PO (11:46)
[2023-08-21] MEDS: HYDROcodone-acetaminophen 5-325 mg Tablet 1 TAB PO (11:46)
[2023-08-21 11:53] VITALS: BP 132/72; PULSE 64; RESP 16; TEMP 36.6; O2SAT 96
== END 2023-08-21 11:46 | disposition home or self-care (01) ==
PROVIDERS: Emergency Provider Emergency Medicine; PCP Family Medicine
DX: L03.115 Cellulitis of right lower limb (principal); Z87.891 Personal history of nicotine dependence; I11.0 Hypertensive heart disease with heart failure; I50.9 Heart failure, unspecified; E78.2 Mixed hyperlipidemia; E11.42 Type 2 diabetes mellitus with diabetic polyneuropathy
CPT/HCPCS: 36415; 73630; 85025; 85651; 86140; 93971; 99284

== ENCOUNTER → 2023-08-23 08:08 | Outpatient (BNVA) | payer MEDICARE, MEDICAID, SELFPAY | PROVIDERS: PCP Family Medicine; Visit Provider Family Medicine | DX: Z79.899 Other long term (current) drug therapy (principal); N28.9 Disorder of kidney and ureter, unspecified; N18.9 Chronic kidney disease, unspecified | CPT/HCPCS: 80048; 80069 ==

== ENCOUNTER 2023-09-14 19:00 | Emergency (ER) | payer MEDICARE, MEDICAID, SELFPAY ==
[2023-09-14 19:03] VITALS: BP 108/67; PULSE 79; RESP 18; TEMP 36.7; O2SAT 92
[2023-09-14 19:13] VITALS: PULSE 87; O2SAT 89
[2023-09-14 20:18] LABS: Basophils # 0.1 10^3/uL (0.0-0.1); Basophils % 0.4 %; Eosinophils # 0.2 10^3/uL (0.0-0.8); Eosinophils % 2.1 %; Hematocrit 44.9 % (36-47); Lymphocytes % 8.9 %; Mean Corpuscular Hemoglobin 29.7 pg (27-33); Mean Corpuscular Volume 95.9 fl (85-98); Mean Platelet Volume 9.8 fL (7.4-10.4); Monocytes # 0.7 10^3/uL (0.2-0.9); Monocytes % 5.8 %; Neutrophils # 9.39 10^3/uL (1.8-7.7); Neutrophils % 82.5 %; Nucleated Red Blood Cells % 0 %; Platelet Count 302 10^3/cmm (157-399); Red Blood Count 4.68 10^6/uL (3.85-5.65); Red Cell Distribution Width 14.7 % (12.1-15.1); White Blood Count 11.38 10^3/uL (3.29-11.43)
--- NOTE | 2023-09-14 20:22 | ED_ITS ---
HPI - Skin/Abscess/Foreign Bdy 2 General: Chief complaint: Skin/Abscess/Foreign Body Stated complaint: Rt Leg Red Time Seen by Provider: 09/14/23 19:23 Source: patient Mode of arrival: ambulatory Limitations: no limitations History of Present Illness: 68-year-old female states she woke up th is morning noticed she has been having redness to bilateral ankles right worse than left. She denies any pain states it is warm to touch she does have some redness and streaks she states she been outside but has not had any contact with poison robby or any other supplements that she knows of. Denies fever denies any leg pain or increased swelling. Associated symptoms: Deny chills, fever(s), nausea or vomiting Review of Systems 2 Const: Denies: fever(s), chills, body aches or change in appetite ENMT: Denies: throat pain or dental pain Card: Denies: chest pain Resp: Denies: dyspnea GI: Denies: abdominal pain, nausea, vomiting or diarrhea Musc: Denies: neck pain or back pain Skin/Breast: Reports: rash Neuro: Denies: headache(s) PFSH ED 2 PFSH: Medical History Metatarsalgia of both feet Venous insufficiency of both lower extremities Skin tag, acquired Lumbar disc disease with radiculopathy Nicotine abuse Hypothyroid CHF (congestive heart failure) Pt is wanting to wait for the Stress test till the VIrus is gone! Mixed hyperlipidemia Atrial fibrillation GERD (gastroesophageal reflux disease) Diabetes 1.5, managed as type 2 Hypercholesteremia Type 2 diabetes mellitus with diabetic polyneuropathy Hypertension Surgical History Hx laparoscopic cholecystectomy Hx of appendectomy Hx of tubal ligation Hx of cholecystectomy Family History Denies family history of Diabetes CAD (coronary artery disease) Clotting disorder Dementia Hyperlipidemia Psychiatric illness Chronic kidney disease (CKD) Suicide Anesthesia complication Bleeding disorder Family history of premature coronary artery disease Lung disease Cancer Hypertension Stroke Social History Smoking and tobacco/nicotine status: former use of tobacco/nicotine Alcohol intake: never Substance/Drug Use: never Physical Exam 2 Const: COMMON NORMALS: no acute distress, patient oriented x3 and healthy appearing HENMT: COMMON NORMALS: normocephalic and atraumatic HEAD & SCALP: n ormocephalic and atraumatic Eye: COMMON NORMALS: conjunctivae normal CONJUNCTIVA: Yes conjunctivae normal Neck/C-Spine: COMMON NORMALS: full ROM and supple Chest: COMMONS NORMALS: normal inspection of the chest Resp: COMMON NORMALS: normal respiratory effort Cardio: COMMON NORMALS: regular rate RATE: regular rate Extremity: COMMON NORMALS: full ROM NARRATIVE EXTREMITY EXAM: Slight erythema to bilateral lower legs right greater than left Neuro: COMMON NORMALS: patient oriented x3, moves all extremities and no focal motor deficits Psych: COMMON NORMALS: mental status grossly normal, Normal thought process present and cooperative THOUGHT PROCESS: Normal thought process present Skin: COMMON NORMALS: no rashes or lesions noted and no wounds GENERAL SKIN EXAM: no rashes or lesions noted Course 2 Vital Signs: Vital signs: Vital Signs Temperature 98.1 F 09/14/23 19:03 Pulse Rate 87 09/14/23 19:13 Respiratory Rate 18 09/14/23 19:03 Blood Pressure 108/67 09/14/23 19:03 Pulse Oximetry 89 L 09/14/23 19:13 Oxygen Delivery Me thod Room Air 09/14/23 19:13 MDM - Skin/Abscess/Foreign Bdy Medicial Decision Making Patient presents here with lower extremity swelling she does have some erythema as well possibly stasis dermatitis versus cellulitis no signs of DVT will start on antibiotics she is to follow-up with her PCP return if worsening she understands agrees to plan. Medical Records I reviewed the patient's medical records. Lab Data I reviewed the patient's lab results. 09/14/23 20:01 09/14/23 20:01 Laboratory Results WBC 11.38 10^3/uL (3.29-11.43) 09/14/23 20:01 RBC 4.68 10^6/uL (3.85-5.65) 09/14/23 20:01 Hgb 13.90 g/dL (11.27-16.99) 09/14/23 20:01 Hct 44.9 % (36-47) 09/14/23 20:01 MCV 95.9 fl (85-98) 09/14/23 20:01 MCH 29.7 pg (27-33) 09/14/23 20:01 MCHC 31.0 g/dL (30-55) 09/14/23 20:01 RDW 14.7 % (12.1-15.1) 09/14/23 20:01 Plt Count 302 10^3/cmm (157-399) 09/14/23 20:01 MPV 9.8 fL (7.4-10.4) 09/14/23 20:01 Neut % (Auto) 82.5 % 09/14/23 20:01 Lymph % (Auto) 8.9 % 09/14/23 20:01 Christian % (Auto) 5.8 % 09/14/23 20:01 Eos % (Auto) 2.1 % 09/14/23 20:01 Baso % (Auto) 0.4 % 09/14/23 20: Neut # (Auto) 9.39 10^3/uL (1.8-7.7) H 09/14/23 20:01 Lymph # (Auto) 1.0 10^3/uL (0.8-4.8) 09/14/23 20:01 Christian # (Auto) 0.7 10^3/uL (0.2-0.9) 09/14/23 20:01 Eos # (Auto) 0.2 10^3/uL (0.0-0.8) 09/14/23 20:01 Baso # (Auto) 0.1 10^3/uL (0.0-0.1) 09/14/23 20: Nucleated RBC % (auto) 0 % 09/14/23 20: Nucleated RBCs # 0.0 /100WBC 09/14/23 20:01 Sodium 140 mmol/L (136-145) 09/14/23 20:01 Potassium 3.8 mmol/L (3.5-5.1) 09/14/23 20:01 Chloride 102 mmol/L (98-107) 09/14/23 20:01 Carbon Dioxide 25 mmol/L (22-29) 09/14/23 20:01 Anion Gap 16.8 (5-19) 09/14/23 20:01 BUN 37 mg/dL (8-23) H 09/14/23 20:01 Creatinine 2.7 mg/dL (0.5-0.9) H 09/14/23 20:01 GFR Calculation 17.4 mL/min (90-130) L 09/14/23 20:01 Glucose 190 mg/dL (65-115) H 09/14/23 20:01 Calculated Osmolality 304 mOsm/kg (285-295) H 09/14/23 20:01 Calcium 8.8 mg/dL (8.5-10.5) 09/14/23 20:01 Total Bilirubin 0.5 mg/dL (0.15-1.2) 09/14/23 20:01 AST 14 U/L (0-32) 09/14/23 20: ALT 13 U/L (0-33) 09/14/23 20:01 Alkaline Phosphatase 130 U/L (35-105) H 09/14/23 20:01 NT-Pro-B Natriuret Pep 1106 pg/mL (0-125) H 09/14/23 20:01 Total Protein 7.2 g/dL (6.6-8.7) 09/14/23 20:01 Albumin 4.0 g/dL (3.5-5.2) 09/14/23 20: Globulin 3.2 g/dL (1.3-4.6) 09/14/23 20:01 No radiology studies performed this visit Discharge Plan Discharge Patient Disposition: Home Clinical Impression: Cellulitis Condition: Stable Prescriptions: New cephalexin 500 mg capsule 500 mg PO TID 7 Days Qty: 21 0RF No Action (DME) Diabetic Shoes with 3 inserts See Rx Instructions .ROUTE .MEDSUPPLY Qty: 1 0RF Rx Instructions: As directed, HOME amlodipine 2.5 mg tablet 2.5 mg PO DAILY Qty: 90 0RF (DME) DME: Walker Unit See Rx Instructions .Route Qty: 1 0RF Rx Instructions: with wheels and a seat (DME) [place] boot See Rx Instructions .Route .MEDSUPPLY Qty: 1 0RF Rx Instructions: As directed (DME) cam walker See Rx Instructions .Route .MEDSUPPLY Qty: 1 0RF Rx Instructions: As directed Xarelto 20 mg tablet See Rx Instructions .ROUTE .COMPLEX Qty: 90 3RF Dose Instruction: TAKE 1 TABLET BY MOUTH ONCE DAILY AT 8 AM Rx Instructions: TAKE 1 TABLET BY MOUTH ONCE DAILY AT 8 AM (DME) Accutrend Glucose test strips Strip See Rx Instructions .Route Qty: 50 6RF Rx Instructions: As directed. Type 2 diabetes: once daily testing levothyroxine 100 mcg tablet See Rx Instructions .ROUTE .COMPLEX Qty: 90 0RF Dose Instruction: Take 1 tablet by mouth once daily Rx Instructions: Take 1 tablet by mouth once daily metoprolol tartrate 25 mg tablet See Rx Instructions .ROUTE .COMPLEX Qty: 90 0RF Dose Instruction: Take 1/2 (one-half) tablet by mouth twice daily Rx Instructions: Take 1/2 (one-half) tablet by mouth twice daily albuterol sulfate 90 mcg/actuation HFA aerosol inhaler See Rx Instructions .ROUTE .COMPLEX Qty: 9 3RF Dose Instruction: INHALE 2 PUFFS BY MOUTH 4 TIMES DAILY FOR 30 DAYS Rx Instructions: INHALE 2 PUFFS BY MOUTH 4 TIMES DAILY FOR 30 DAYS furosemide 40 mg tablet 60 mg PO BID@0800,2000 Qty: 240 1RF spironolactone 25 mg tablet See Rx Instructions .ROUTE .COMPLEX Qty: 30 5RF Dose Instruction: TAKE 1 TABLET BY MOUTH ONCE DAILY FOR SWELLING Rx Instructions: TAKE 1 TABLET BY MOUTH ONCE DAILY FOR SWELLING hydrocodone-acetaminophen 7.5-325 mg tablet 1 tab PO Q12H PRN (Reason: pain) 30 Days Qty: 60 0RF cholecalciferol (vitamin D3) 125 mcg (5,000 unit) Tablet 5,000 unit PO DAILY Qty: 30 0RF Pacerone 100 mg tablet 100 mg PO DAILY Discharge Orders: Discharge ED (Routine); Ordered 09/14/23 Ordered By: Hugo Giraldo Referrals: Anna Kaufman MD [Primary Care Provider] - 4-7 days Discharge Diet: Advance as tolerated Discharge Activity: Resume usual activity Patient Instructions: Cellulitis (ED) Coding Level of Care Code ED Research Advisor for Irving Rosario
[2023-09-14 20:46] LABS: Alanine Aminotransferase 13 U/L (0-33); Alkaline Phosphatase 130 U/L (35-105); Anion Gap 16.8 (5-19); Aspartate Amino Transferase 14 U/L (0-32); Blood Urea Nitrogen 37 mg/dL (8-23); Calcium 8.8 mg/dL (8.5-10.5); Carbon Dioxide 25 mmol/L (22-29); Chloride 102 mmol/L (98-107); Creatinine Clr Calc Pharmacy 26.4391; Globulin 3.2 g/dL (1.3-4.6); Glomerular Filtration Rate 17.4 mL/min (90-130); Glucose 190 mg/dL (65-115); NT Pro B Type Natriuretic Pept 1106 pg/mL (0-125); Osmolality Calculated 304 mOsm/kg (285-295); Potassium 3.8 mmol/L (3.5-5.1); Sodium 140 mmol/L (136-145); Total Bilirubin 0.5 mg/dL (0.15-1.2); Total Protein 7.2 g/dL (6.6-8.7)
[2023-09-14 21:33] VITALS: PULSE 70; RESP 18; O2SAT 91
== END 2023-09-14 21:20 | disposition home or self-care (01) ==
PROVIDERS: Emergency Provider Emergency Medicine; PCP Family Medicine
DX: L03.115 Cellulitis of right lower limb (principal); L03.116 Cellulitis of left lower limb; Z87.891 Personal history of nicotine dependence; I11.0 Hypertensive heart disease with heart failure; I50.9 Heart failure, unspecified; E78.2 Mixed hyperlipidemia; E11.42 Type 2 diabetes mellitus with diabetic polyneuropathy
CPT/HCPCS: 36415; 80053; 83880; 85025; 99283

== ENCOUNTER 2023-10-07 09:34 | Emergency (ER) | payer MEDICARE, MEDICAID, SELFPAY ==
--- NOTE | 2023-10-07 09:37 | ED_ITS ---
HPI - Back Pain/Injury 2 General: Chief Complaint: Back Pain/Injury Stated Complaint: back pain Time Seen by Provider: 10/07/23 09:36 Source: patient Mode of arrival: wheelchair Limitations: no limitations History of Present Illness: Patient is a 68-year-old female here for complaints of left lower back pain over the past 2 days. She reports a chronic/longstanding history of back pain. She states she takes hydrocodone 7.5mg 1 tab every 12 hours for her back pain. She states these are given to her by her PCP Dr. Kaufman. Patient states she has a history of degenerative disc disease in her back. She states she does not want to undergo any form of back surgery or pain management for injections. She states she does not want MRI imaging for the back. She states her pain today is worse than normal. No injury/trauma. Denies radicular pains into her legs. Has not noticed any numbness/color or temp changes to the lower extremities. Denies saddle anesthesia or bowel or bladder disfunction. States she normally ambulates in her home with a walker. MD elicited complaint: back pain Pertinent past history: prior back pain Onset (ago): day(s) Timing: constant Severity: severe Pain scale (0-10): 9 Similar Symptoms Previously: Yes Location: left lower back Radiation: none Exacerbating factors: movement Relieving factors: none Associated symptoms: Reports difficulty walking (secondary to pain in back); Deny abdominal pain, dysuria or fever(s) Work related injury: No Review of Systems 2 Const: Denies: fever(s) Card: Denies: chest pain Resp: Denies: dyspnea GI: Denies: abdominal pain : Denies: flank pain, dysuria or urinary incontinence Musc: Reports: back pain; Denies: neck pain, extremity pain, extremity swelling, joint pain or joint swelling Skin/Breast: Denies: rash Neuro: Reports: difficulty walking (secondary to pain in back); Denies: headache(s), numbness in extremities, weakness in extremities or sensory changes PFSH ED 2 PFSH: Medical History Metatarsalgia of both feet Venous insufficiency of both lower extremities Skin tag, acquired Lumbar disc disease with radiculopathy Nicotine abuse Hypothyroid CHF (congestive heart failure) Pt is wanting to wait for the Stress test till the VIrus is gone! Mixed hyperlipidemia Atrial fibrillation GERD (gastroesophageal reflux disease) Diabetes 1.5, managed as type 2 Hypercholesteremia Type 2 diabetes mellitus with diabetic polyneuropathy Hypertension Surgical History Hx laparoscopic cholecystectomy Hx of appendectomy Hx of tubal ligation Hx of cholecystectomy Family History Denies family history of Diabetes CAD (coronary artery disease) Clotting disorder Dementia Hyperlipidemia Psychiatric illness Chronic kidney disease (CKD) Suicide Anesthesia complication Bleeding disorder Family history of premature coronary artery disease Lung disease Cancer Hypertension Stroke Social History Smoking and tobacco/nicotine status: former use of tobacco/nicotine Alcohol intake: never Substance/Drug Use: never Physical Exam 2 Const: COMMON NORMALS: patient oriented x3, no limitations and alert G ENERAL APPEARANCE: cooperative NUTRITIONAL APPEARANCE: obese O RIENTATION/CONSCIOUSNESS: Yes awake, Yes oriented to person, Yes oriented to place and Yes oriented to time Neck/C-Spine: COMMON NORMALS: full ROM CERVICAL SPINE: No Cervical spine tenderness Resp: COMMON NORMALS: normal respiratory effort and clear to auscultation bilaterally AUSCULTATION: clear to auscultation bilaterally Cardio: COMMON NORMALS: regular rate and regular rhythm RATE: regular rate RHYTHM: regular rhythm GI: COMMON NORMALS: Normal to inspection, nondistended, normoactive bowel sounds present, Soft to palpation and non-tender PALPATION: Yes Soft to palpation : COMMON NORMALS: Yes no CVA tenderness BLADDER/KIDNEY EXAM: Yes no CVA tenderness Back/Pelvis: COMMON NORMALS: no CVA tenderness and thoracic and lumbar spine normal to inspection THORACIC SPINE/UPPER BACK: No thoracic spinal tenderness and No paraspinal muscle tenderness LUMBAR SPINE/LOWER BACK: No lumbar spinal tenderness, No paraspinal muscle spasm and Yes straight leg raise negative bilaterally PELVIS: Yes buttocks normal SACROILIAC JOINTS: Yes SI joint(s) abnormal SI joint details: tender to palpation BACK IMAGE (FEMALE): 1. pain reproducible with palpation Extremity: COMMON NORMALS: normal to inspection, full ROM, capillary refill normal, no clubbing, cyanosis or edema, no calf tenderness and no pedal edema GENERAL: Yes normal exam except as noted Neuro: COMMON NORMALS: patient oriented x3, moves all extremities, no focal motor deficits and no sensory deficits noted SENSORIUM/ORIENTATION: Yes alert, Yes oriented to person, Yes oriented to place and Yes oriented to time MOTOR EXAM: 5/5 motor strength present throughout Skin: COMMON NORMALS: no rashes or lesions noted GENERAL SKIN EXAM: no rashes or lesions noted Course 2 Vital Signs: Vital signs: Vital Signs Temperature 97.8 F 10/07/23 09:50 Respiratory Rate 17 10/07/23 10:08 Blood Pressure 127/96 10/07/23 09:50 Pulse Oximetry 93 10/07/23 10:08 Oxygen Delivery Me thod Room Air 10/07/23 09:50 MDM - Back Pain/Injury Medical Decision Making Patient's back pain is easily reproducible. She has no acute neurologic deficits or complaints. She was given IV morphine and dexamethasone here and feels better. She is declining all muscle relaxers. She is not a candidate for anti-inflammatories given her kidney functions. I do not want to treat her with additional steroids at home given her diabetes. Her PCP has seemingly worked hard to get good control of these. Patient states she takes hydrocodone every 12 for her chronic back pain. She can increase this to every 8 over the weekend if needed. Recommend she follow-up with primary care next week if symptoms persist. Medical Records I reviewed the patient's medical records. No radiology studies performed this visit Discharge Plan Discharge Patient Disposition: Home Clinical Impression: Sacroiliitis Condition: Stable Prescriptions: No Action (DME) Diabetic Shoes with 3 inserts See Rx Instructions .ROUTE .MEDSUPPLY Qty: 1 0RF Rx Instructions: As directed, HOME amlodipine 2.5 mg tablet 2.5 mg PO DAILY Qty: 90 0RF (DME) DME: Walker Unit See Rx Instructions .Route Qty: 1 0RF Rx Instructions: with wheels and a seat (DME) [place] boot See Rx Instructions .Route .MEDSUPPLY Qty: 1 0RF Rx Instructions: As directed (DME) cam walker See Rx Instructions .Route .MEDSUPPLY Qty: 1 0RF Rx Instructions: As directed (DME) Accutrend Glucose test strips Strip See Rx Instructions .Route Qty: 50 6RF Rx Instructions: As directed. Type 2 diabetes: once daily testing hydrocodone-acetaminophen 7.5-325 mg tablet 1 tab PO Q12H PRN (Reason: pain) 30 Days Qty: 60 0RF cholecalciferol (vitamin D3) 125 mcg (5,000 unit) Tablet 5,000 unit PO DAILY Qty: 30 0RF furosemide 40 mg tablet See Rx Instructions .ROUTE .COMPLEX Rx Instructions: TAKE 1 TABLET BY MOUTH DAILY ON ONE DAY AND 2 TABLETS ON THE NEXT DAY. spironolactone 25 mg tablet 25 mg PO DAILY levothyroxine 100 mcg tablet 100 mcg PO DAILY albuterol sulfate 90 mcg/actuation HFA aerosol inhaler 2 puff inhalation QID PRN (Reason: Shortness Of Breath) Pacerone 100 mg tablet 100 mg PO BID metoprolol tartrate 25 mg tablet 12.5 mg PO BID Xarelto 20 mg tablet 20 mg PO .DAILY@8AM Discharge Orders: Discharge ED (Routine); Ordered 10/07/23 Ordered By: Laura Ortiz Referrals: Anna Kaufman MD [Primary Care Provider] - Patient Instructions: Sacroiliitis (ED), Back Pain (ED), Lower Back Exercises (ED) Activity Restrictions/Additional Instructions: As we discussed I do not want to take any anti-inflammatories with your kidney functions. You have declined muscle relaxers. You were given IV steroids today. We will forego further steroid prescriptions due to your diabetes. As we discussed you may increase your hydrocodone to 1 tablet every 8 hours to help with your discomfort. In addition you may try ice, heat, gentle stretches. Please follow-up with your primary care provider next week if symptoms do not seem to be improving. Coding Level of Care Code ED First Aid Officer for Irving Rosario
[2023-10-07 09:50] VITALS: BP 127/96; RESP 18; TEMP 36.6; O2SAT 98
[2023-10-07 10:08] VITALS: RESP 17; O2SAT 93
[2023-10-07] MEDS: morphine 4 mg/mL SDV 1 mL IVP (10:08)
[2023-10-07] MEDS: dexamethasone 10 mg/mL INJ IVP (10:08)
== END 2023-10-07 11:20 | disposition home or self-care (01) ==
PROVIDERS: Emergency Provider Physician Assistant; PCP Family Medicine
DX: M46.1 Sacroiliitis, not elsewhere classified (principal); Z87.891 Personal history of nicotine dependence; I11.0 Hypertensive heart disease with heart failure; I50.9 Heart failure, unspecified; E78.2 Mixed hyperlipidemia; E11.42 Type 2 diabetes mellitus with diabetic polyneuropathy
CPT/HCPCS: 96374; 96375; 99284; J1100; J2270

== ENCOUNTER → 2023-10-18 08:27 | Outpatient (BNVA) | payer MEDICARE, MEDICAID, SELFPAY | PROVIDERS: PCP Family Medicine; Visit Provider Podiatrist Foot & Ankle Surgery | DX: M19.071 Primary osteoarthritis, right ankle and foot; E11.42 Type 2 diabetes mellitus with diabetic polyneuropathy; M65.871 Other synovitis and tenosynovitis, right ankle and foot | CPT/HCPCS: 99213 ==

== ENCOUNTER → 2023-11-08 09:34 | Outpatient (BNVA) | payer MEDICARE, MEDICAID, SELFPAY | PROVIDERS: PCP Family Medicine; Visit Provider Internal Medicine Cardiovascular Disease | DX: I48.0 Paroxysmal atrial fibrillation (principal); E78.00 Pure hypercholesterolemia, unspecified; I11.0 Hypertensive heart disease with heart failure; I50.32 Chronic diastolic (congestive) heart failure; I34.0 Nonrheumatic mitral (valve) insufficiency; I87.2 Venous insufficiency (chronic) (peripheral); Z79.01 Long term (current) use of anticoagulants | CPT/HCPCS: 99214 ==

== ENCOUNTER → 2023-11-09 10:56 | Outpatient (BNVA) | payer MEDICARE, MEDICAID, SELFPAY | PROVIDERS: PCP Family Medicine; Visit Provider Family Medicine | DX: I10 Essential (primary) hypertension (principal); I48.0 Paroxysmal atrial fibrillation; E78.2 Mixed hyperlipidemia | CPT/HCPCS: 80053; 80061; 85025 ==

== ENCOUNTER → 2023-12-22 09:23 | Outpatient (BNVA) | payer MEDICARE, MEDICAID, SELFPAY | PROVIDERS: PCP Family Medicine; Visit Provider Family Medicine | DX: N18.4 Chronic kidney disease, stage 4 (severe) (principal); N17.9 Acute kidney failure, unspecified; N18.31 Chronic kidney disease, stage 3a | CPT/HCPCS: 80053; 80069; 82542; 82570; 84156; 85007; 85027 ==

== ENCOUNTER → 2024-01-17 09:22 | Outpatient (BNVA) | payer MEDICARE, MEDICAID, SELFPAY | PROVIDERS: PCP Family Medicine; Visit Provider Podiatrist Foot & Ankle Surgery | DX: E11.42 Type 2 diabetes mellitus with diabetic polyneuropathy (principal); L60.3 Nail dystrophy; I73.9 Peripheral vascular disease, unspecified | CPT/HCPCS: 11721 ==

== ENCOUNTER 2024-01-30 11:03 | Emergency (ER) | payer MEDICARE, MEDICAID, SELFPAY ==
--- NOTE | 2024-01-30 11:18 | XR_ITS ---
WS: [id number] Exam: XR foot RT min 3V* [id number] Date/Time of Exam: 01/30/2024 11:27 AM Reason For Exam: injury Comparison 08/21/2023. No fracture or dislocation. Degenerative changes in the midfoot joints. Subcortical cyst formation in the base of the first metatarsal. Large plantar heel spur. No soft tissue foreign bodies. XR/XR foot RT min 3V* [id number] IMPRESSION: 1. Degenerative changes. Large calcaneal spur.
[2024-01-30 11:46] VITALS: BP 112/70; PULSE 73; RESP 16; TEMP 36.9; O2SAT 98; BMI 40.1
--- NOTE | 2024-01-30 12:51 | ED_ITS ---
HPI - Extremity Problem General: Chief complaint: Extremity Problem,Nontraumatic Stated complaint: R foot pain Time Seen by Provider: 01/30/24 11:22 Source: patient Mode of arrival: ambulatory Limitations: no limitations History of Present Illness: Patient is a nice 68-year-old female presents to ED today with complaint of pain and redness to her right foot that she first began noticing 2 to 3 days ago. She states she had similar symptoms in her left foot several months ago and was diagnosed with cellulitis and placed on antibiotics and did well with this. Patient is not having any numbness/tingling/loss of sensation. She has not had any known injury or trauma or plantar puncture wounds. She is not running fevers. She has not noticed any swelling to the leg or calf or calf pain. MD Complaint: extremity pain Onset (ago): day(s) Pain Consistency: constant Location: right and lower extremity (foot) Radiation: none Exacerbating factors: walking Associated symptoms: Reports no associated symptoms; Deny fever(s) Related Data Home Medications Medication Instructions Recorded Confirmed amiodarone 100 mg tablet (Pacerone) 100 mg PO BID 10/07/23 01/17/24 albuterol sulfate 90 mcg/actuation See Rx Instructions .Route .COMPLEX 11/08/23 01/17/24 aerosol inhaler furosemide 40 mg tablet See Rx Instructions .Route .COMPLEX 11/08/23 01/17/24 Previous Rx's Medication Instructions Recorded cholecalciferol (vitamin D3) 125 5,000 unit PO DAILY #30 tabs 06/11/20 mcg (5,000 unit) tablet Diabetic Shoes with 3 inserts #1 ea 07/21/22 DME: Walker #1 ea 08/30/22 [place] boot #1 ea 11/17/22 blood sugar diagnostic (Accutrend #50 ea 04/27/23 Glucose test strips) amlodipine 2.5 mg tablet 2.5 mg PO DAILY #90 tabs 08/31/23 metoprolol tartrate 25 mg tablet 12.5 mg (1/2 x 25 mg) PO BID #90 10/18/23 tabs cam walker #1 ea 11/09/23 rivaroxaban 20 mg tablet (Xarelto) See Rx Instructions .Route 11/17/23 .COMPLEX #90 tabs levothyroxine 100 mcg tablet 100 mcg PO DAILY #90 tabs 12/16/23 hydrocodone 7.5 mg-acetaminophen 1 tab PO Q12H PRN pain 30 days #60 01/15/24 325 mg tablet tabs azithromycin 250 mg tablet See Rx Instructions PO .COMPLEX #6 01/16/24 tabs spironolactone 25 mg tablet See Rx Instructions .Route 01/16/24 .COMPLEX #90 tabs cephalexin 500 mg capsule 500 mg PO Q6H 7 days #28 caps 01/30/24 Allergies Allergy/AdvReac Type Severity Reaction Status Date / Time aspirin Allergy nausea Verified 01/30/24 11:52 influenza A (H1N1) virus Allergy unknown Verified 01/30/24 11:52 vaccine [id number] 2008 [From influenza A (H1N1)] Review of Systems Const: Denies: fever(s), chills, body aches, fatigue or malaise Musc: Reports: extremity pain (R foot); Denies: joint pain or joint swelling Skin/Breast: Reports: erythema (R foot) Neuro: Denies: numbness in extremities, weakness in extremities or sensory changes PFSH ED PFSH: Medical History Metatarsalgia of both feet Venous insufficiency of both lower extremities Skin tag, acquired Lumbar disc disease with radiculopathy Nicotine abuse Hypothyroid CHF (congestive heart failure) Pt is wanting to wait for the Stress test till the VIrus is gone! Mixed hyperlipidemia Atrial fibrillation GERD (gastroesophageal reflux disease) Diabetes 1.5, managed as type 2 Hypercholesteremia Type 2 diabetes mellitus with diabetic polyneuropathy Hypertension Surgical History Hx laparoscopic cholecystectomy Hx of appendectomy Hx of tubal ligation Hx of cholecystectomy Family History Denies family history of Diabetes CAD (coronary artery disease) Clotting disorder Dementia Hyperlipidemia Psychiatric illness Chronic kidney disease (CKD) Suicide Anesthesia complication Bleeding disorder Family history of premature coronary artery disease Lung disease Cancer Hypertension Stroke Social History Smoking and tobacco/nicotine status: former use of tobacco/nicotine Alcohol intake: never Substance/Drug Use: never Physical Exam Const: COMMON NORMALS: no acute distress, patient oriented x3, no limitations, alert and well nourished GENERAL APPEARANCE: cooperative NUTRITIONAL APPEARANCE: overweight Extremity: COMMON NORMALS: full ROM, capillary refill normal and no calf tenderness GENERAL: Yes normal exam except as noted RIGHT LOWER EXTREMITY: Yes foot & digits Right foot and digits: Yes neurovascular exam (normal) OTHER: R foot warm to touch with blanching erythema consistent with cellulitis; no swelling to extremity or calf/no calf pain/negative Oscar's; no skin wounds present; dystrophic nails bilaterally Neuro: COMMON NORMALS: patient oriented x3, moves all extremities, no focal motor deficits and no sensory deficits noted SENSORIUM/ORIENTATION: Yes alert Course Vital Signs: Vital signs: Vital Signs Temperature 98.5 F 01/30/24 11:46 Pulse Rate 73 01/30/24 11:46 Respiratory Rate 16 01/30/24 11:46 Blood Pressure 112/70 01/30/24 11:46 Pulse Oximetry 98 01/30/24 11:46 Oxygen Delivery Me thod Room Air 01/30/24 11:46 MDM - Extremity (Nontraumatic) Medical Decision Making Had similar symptoms to her left foot several months ago and placed on cephalexin and had a good response to this therefore we will choose this antibiotic. Recommend follow-up with her PCP and/or podiatry. Return to ED precautions given. Blood work not obtained as this was unlikely to change overall disposition. Lab Data Radiology Impressions Foot X-Ray 01/30/24 11:18 IMPRESSION: 1. Degenerative changes. Large calcaneal spur. All radiology interpretation(s) finalized by discharge Discharge Plan Discharge Patient Disposition: Home Clinical Impression: Cellulitis of right foot Condition: Stable Prescriptions: New cephalexin 500 mg capsule 500 mg PO Q6H 7 Days Qty: 28 0RF No Action (DME) Diabetic Shoes with 3 inserts See Rx Instructions .ROUTE .MEDSUPPLY Qty: 1 0RF Rx Instructions: As directed, HOME amlodipine 2.5 mg tablet 2.5 mg PO DAILY Qty: 90 0RF albuterol sulfate 90 mcg/actuation HFA aerosol inhaler See Rx Instructions .ROUTE .COMPLEX Dose Instruction: INHALE 2 PUFFS BY MOUTH 4 TIMES DAILY Rx Instructions: INHALE 2 PUFFS BY MOUTH q 4 hr (DME) cam walker See Rx Instructions .Route .MEDSUPPLY Qty: 1 0RF Rx Instructions: As directed azithromycin 250 mg tablet See Rx Instructions PO .COMPLEX Qty: 6 0RF Rx Instructions: For 250 mg dose pack: take 500 mg today (day 1), then 250 mg for 4 days (days 2-5) PO (DME) DME: Walker Unit See Rx Instructions .Route Qty: 1 0RF Rx Instructions: with wheels and a seat (DME) [place] boot See Rx Instructions .Route .MEDSUPPLY Qty: 1 0RF Rx Instructions: As directed (DME) Accutrend Glucose test strips Strip See Rx Instructions .Route Qty: 50 6RF Rx Instructions: As directed. Type 2 diabetes: once daily testing metoprolol tartrate 25 mg tablet 12.5 mg PO BID Qty: 90 1RF Xarelto 20 mg tablet See Rx Instructions .ROUTE .COMPLEX Qty: 90 3RF Dose Instruction: TAKE 1 TABLET BY MOUTH ONCE DAILY AT 8 AM Rx Instructions: TAKE 1 TABLET BY MOUTH ONCE DAILY AT 8 AM levothyroxine 100 mcg tablet 100 mcg PO DAILY Qty: 90 3RF hydrocodone-acetaminophen 7.5-325 mg tablet 1 tab PO Q12H PRN (Reason: pain) 30 Days Qty: 60 0RF spironolactone 25 mg tablet See Rx Instructions .ROUTE .COMPLEX Qty: 90 3RF Dose Instruction: TAKE 1 TABLET BY MOUTH ONCE DAILY FOR SWELLING Rx Instructions: TAKE 1 TABLET BY MOUTH ONCE DAILY FOR SWELLING cholecalciferol (vitamin D3) 125 mcg (5,000 unit) Tablet 5,000 unit PO DAILY Qty: 30 0RF Pacerone 100 mg tablet 100 mg PO BID furosemide 40 mg tablet See Rx Instructions .ROUTE .COMPLEX Rx Instructions: TAKE 1 TABLET BY MOUTH every other day Discharge Orders: Discharge ED (Routine); Ordered 01/30/24 Ordered By: Laura Ortiz Referrals: Anna Kaufman MD [Primary Care Provider] - Activity Restrictions/Additional Instructions: You may follow-up with your primary care provider and/or software development test engineer for further evaluation of your right foot pain and redness. You need to fill your antibiotics and start them immediately. You may return to the emergency department for worsening redness, swelling, pain, fevers, red streaking up your leg, generally feeling worse or unwell, or any other concerns you may have. Coding Level of Care Code ED Development Executive for Irving Rosario
[2024-01-30 13:14] VITALS: BP 109/61; PULSE 82; O2SAT 97
== END 2024-01-30 13:15 | disposition home or self-care (01) ==
PROVIDERS: Emergency Provider Physician Assistant; PCP Family Medicine
DX: L03.115 Cellulitis of right lower limb (principal)
CPT/HCPCS: 73630; 99283

== ENCOUNTER → 2024-02-09 09:50 | Outpatient (BNVA) | payer MEDICARE, MEDICAID, SELFPAY | PROVIDERS: PCP Family Medicine; Visit Provider Family Medicine | DX: I10 Essential (primary) hypertension (principal); I73.9 Peripheral vascular disease, unspecified; N17.9 Acute kidney failure, unspecified; N18.31 Chronic kidney disease, stage 3a | CPT/HCPCS: 80048 ==

== ENCOUNTER 2024-02-16 08:55 | Outpatient (CLI) | payer MEDICARE, MEDICAID, SELFPAY ==
--- NOTE | 2024-02-16 09:45 | USCV_ITS ---
Mavis Joseph Age: 68 Gender: F : 1955 Exam Date: 02/16/2024 09:50 Ordering Phys: Anna Kaufman MD Technologist: Varun Murillo [place] [facility] [place]: RT LE EDEMA AND PAIN RIGHT LEFT Brachial 93.00 mmHg Brachial 104.00 mmHg Pressure (mmHg) Waveform Pressure (mmHg) Waveform 127.00 DOUGH MIXER 127.00 108.00 DPA 113.00 1.22 Ankle/Brachial Index 1.22 100.00 Pre-Exercise Toe Pressure 94.00 0.96 Pre-Exercise Toe/Brachial Index 0.90 FINDINGS Resting LOPEZ of 1.22 bilaterally Resting TBI of 0.96 on the right and 0.90 on the left CONCLUSIONS Normal resting ABIs and TBIs bilaterally No significant arterial obstruction, based on the above findings Dr Lane Lynn MD [facility] (Electronically Signed) Final Date: 16 February 2024 18:04 S
== END 2024-02-16 08:56 | disposition home or self-care (01) ==
PROVIDERS: PCP Family Medicine; Visit Provider Family Medicine
DX: I73.9 Peripheral vascular disease, unspecified (principal); I87.2 Venous insufficiency (chronic) (peripheral); E11.42 Type 2 diabetes mellitus with diabetic polyneuropathy
CPT/HCPCS: 93922

== ENCOUNTER → 2024-03-05 10:35 | Outpatient (BNVA) | payer MEDICARE, MEDICAID, SELFPAY | PROVIDERS: PCP Family Medicine; Visit Provider Family Medicine | DX: I10 Essential (primary) hypertension (principal); I48.0 Paroxysmal atrial fibrillation; E78.00 Pure hypercholesterolemia, unspecified; E11.42 Type 2 diabetes mellitus with diabetic polyneuropathy; Z79.899 Other long term (current) drug therapy | CPT/HCPCS: 80048; 83036; 84550; 85025 ==

== ENCOUNTER → 2024-03-19 08:53 | Outpatient (BNVA) | payer MEDICARE, MEDICAID, SELFPAY | PROVIDERS: PCP Family Medicine; Visit Provider Family Medicine | DX: I73.9 Peripheral vascular disease, unspecified (principal); N17.9 Acute kidney failure, unspecified; N18.31 Chronic kidney disease, stage 3a; M19.079 Primary osteoarthritis, unspecified ankle and foot | CPT/HCPCS: 80048 ==

== ENCOUNTER → 2024-04-24 12:34 | Outpatient (BNVA) | payer MEDICARE, MEDICAID, SELFPAY | PROVIDERS: PCP Family Medicine; Visit Provider Podiatrist Foot & Ankle Surgery | DX: E11.42 Type 2 diabetes mellitus with diabetic polyneuropathy (principal); L60.3 Nail dystrophy; I73.9 Peripheral vascular disease, unspecified | CPT/HCPCS: 11721; 99213 ==

== ENCOUNTER → 2024-04-30 14:27 | Outpatient (BNVA) | payer MEDICARE, MEDICAID, SELFPAY | PROVIDERS: PCP Family Medicine; Visit Provider Family Medicine | DX: I10 Essential (primary) hypertension (principal) | CPT/HCPCS: 80048 ==

== ENCOUNTER 2024-05-05 14:27 | Emergency (ER) | payer MEDICARE, MEDICAID, SELFPAY ==
[2024-05-05 14:39] VITALS: BP 109/61; PULSE 85; RESP 18; TEMP 36.8; O2SAT 94; BMI 37.7
--- NOTE | 2024-05-05 16:10 | XRR_ITS ---
PROCEDURE INFORMATION: Exam: XR Left Wrist Exam date and time: 05/05/2024 4:09 PM Age: 69 years old Clinical indication: Left; Patient HX: Lt wrist pain/swelling; No known injury TECHNIQUE: Imaging protocol: Radiologic exam of the left wrist. Views: 3 or more views. COMPARISON: No relevant prior studies available. FINDINGS: Bones/joints: No fracture or dislocation. Mild degenerative change including some benign small cystic bony changes. No acute osseous abnormality. Soft tissues: No significant focal soft tissue abnormality. Mild swelling. XR/XR wrist LT min 3V* [id number] IMPRESSION: Mild degenerative change. No fracture or acute osseous abnormality.
--- NOTE | 2024-05-05 16:10 | W.ED.EXTPRO ---
Documented by User: DELORES Begum 05/05/24 20:52 HPI - Extremity Problem General: Chief complaint: Extremity Problem,Nontraumatic Stated complaint: pain & swelling in lft hand & foot Time Seen by Provider: 05/05/24 15:55 Source: patient Mode of arrival: wheelchair Limitations: no limitations History of Present Illness: Patient is a 69-year-old female presents to ED today with a complaint of pain and swelling in her left wrist and hand as well as pain and swelling involving her left foot. Patient states she has a longstanding history of problems with her legs and feet-mainly her left . She has history of venous insufficiency to her bilateral lower extremities, metatarsalgia of both feet, diabetic neuropathy, Charcot on the left, previous history of cellulitis, etc. She has been following up with her PCP Dr. Kaufman as well as Dr. Roberto. Her main concern is pain and swelling involving the left wrist. No known injury or trauma. Symptoms started on and have progressively worsened since onset. She has noticed redness, warmth, swelling and pain. No history of gout. She recently had a GI bug two weeks or so ago that has since resolved. No other recent illness. MD Complaint: extremity pain, extremity swelling, joint swelling and joint pain Onset (ago): day(s) Pain Consistency: constant Location: left, upper extremity and lower extremity Radiation: none Relieving factors: nothing Exacerbating factors: range of motion, walking and palpation Associated symptoms: Reports no associated symptoms; Deny chest pain or fever(s) Context: recent illness ( GI bug ) Related Data Home Medications Medication Instructions Recorded Confirmed albuterol sulfate 90 mcg/actuation 2 puff inhalation Q4H PRN 11/08/23 05/06/24 aerosol inhaler Shortness Of Breath furosemide 40 mg tablet 40 mg PO .QOD 11/08/23 05/06/24 diclofenac sodium 1 % topical gel 4 g topical QID PRN Pain 05/05/24 05/06/24 (Voltaren Arthritis Pain) metolazone 5 mg tablet 5 mg PO DAILY PRN swelling 05/05/24 05/06/24 rivaroxaban 20 mg tablet (Xarelto) 20 mg PO .8AM 05/05/24 05/06/24 spironolactone 25 mg tablet 25 mg PO DAILY 05/05/24 05/06/24 Previous Rx's Medication Instructions Recorded cholecalciferol (vitamin D3) 125 5,000 unit PO DAILY #30 tabs 06/11/20 mcg (5,000 unit) tablet DME: Walker #1 ea 08/30/22 HOOPA boot #1 ea 11/17/22 blood sugar diagnostic (Accutrend #50 ea 04/27/23 Glucose test strips) amlodipine 2.5 mg tablet 2.5 mg PO DAILY #90 tabs 08/31/23 cam walker #1 ea 11/09/23 levothyroxine 100 mcg tablet 100 mcg PO DAILY #90 tabs 12/16/23 amiodarone 100 mg tablet (Pacerone) 100 mg PO BID #180 tabs 03/28/24 hydrocodone 7.5 mg-acetaminophen 1 tab PO Q12H PRN pain 30 days #60 04/16/24 325 mg tablet tabs metoprolol tartrate 25 mg tablet 12.5 mg (1/2 x 25 mg) PO BID #90 04/23/24 tabs Diabetic Shoes with 3 inserts #1 ea 04/24/24 pregabalin 50 mg capsule 50 mg PO BID feet pain #60 caps 04/30/24 doxycycline monohydrate 100 mg 100 mg PO Q12H 10 days #20 caps 05/05/24 capsule Allergies Allergy/AdvReac Type Severity Reaction Status Date / Time aspirin Allergy nausea Verified 05/05/24 14:45 influenza A (H1N1) virus Allergy unknown Verified 05/05/24 14:45 vaccine m-grey-split 2008 [From influenza A (H1N1)] Review of Systems Const: Denies: fever(s), chills, body aches, fatigue or malaise Card: Denies: chest pain Resp: Denies: dyspnea GI: Denies: abdominal pain, nausea, vomiting or diarrhea Musc: Reports: extremity pain, extremity swelling, joint pain, joint swelling and joint redness; Denies: neck pain or back pain Neuro: Denies: headache(s), numbness in extremities, weakness in extremities or sensory changes PFSH ED PFSH: Medical History Metatarsalgia of both feet Venous insufficiency of both lower extremities Skin tag, acquired Lumbar disc disease with radiculopathy Nicotine abuse Hypothyroid CHF (congestive heart failure) Pt is wanting to wait for the Stress test till the VIrus is gone! Mixed hyperlipidemia Atrial fibrillation GERD (gastroesophageal reflux disease) Diabetes 1.5, managed as type 2 Hypercholesteremia Type 2 diabetes mellitus with diabetic polyneuropathy Hypertension Surgical History Hx laparoscopic cholecystectomy Hx of appendectomy Hx of tubal ligation Hx of cholecystectomy Family History Denies family history of Diabetes CAD (coronary artery disease) Clotting disorder Dementia Hyperlipidemia Psychiatric illness Chronic kidney disease (CKD) Suicide Anesthesia complication Bleeding disorder Family history of premature coronary artery disease Lung disease Cancer Hypertension Stroke Social History Smoking and tobacco/nicotine status: never used tobacco/nicotine Alcohol intake: never Substance/Drug Use: never Physical Exam Const: COMMON NORMALS: no acute distress, patient oriented x3, no limitations, alert and well nourished GENERAL APPEARANCE: cooperative NUTRITIONAL APPEARANCE: obese ORIENTATION/CONSCIOUSNESS: Yes awake, Yes oriented to person, Yes oriented to place and Yes oriented to time Resp: COMMON NORMALS: normal respiratory effort and clear to auscultation bilaterally AUSCULTATION: clear to auscultation bilaterally Cardio: COMMON NORMALS: regular rate and regular rhythm RATE: regular rate RHYTHM: regular rhythm Extremity: COMMON NORMALS: capillary refill normal and no calf tenderness GENERAL: Yes normal exam except as noted LEFT UPPER EXTREMITY: Yes wrist and Yes hand & digits OTHER: bilateral chronic LE edema-at baseline; no erythema/warmth present; NV intact patient has significant warmth/erythema involving volar L wrist and dorsal L hand; no streaking; no epitrochlear lymphadenopathy; she has tenderness with ROM of wrist and attempting to wiggle all digits of her hands; radial pulse and cap refill normal Neuro: COMMON NORMALS: patient oriented x3, moves all extremities, no focal motor deficits and no sensory deficits noted SENSORIUM/ORIENTATION: Yes alert, Yes oriented to person, Yes oriented to place and Yes oriented to time Course Vital Signs: Vital signs: Vital Signs Temperature 98.3 F 05/05/24 14:39 Pulse Rate 73 05/05/24 20:00 Respiratory Rate 16 05/05/24 20:00 Blood Pressure 93/62 05/05/24 20:00 Pulse Oximetry 94 05/05/24 20:00 Oxygen Delivery Me thod Room Air 05/05/24 20:00 MDM - Extremity (Nontraumatic) Medical Decision Making I had Dr. Oglesby also assessed patient as her left wrist is red, significantly warm to the touch, edematous, and she is having significant discomfort. Concern for septic arthritis. White count of almost 15,000 with a CRP of over 220. Dr. Oglesby also shares this concern. We have spoken to Dr. Marmolejo who is recommending transfer. Patient is adamantly refusing transfer. She refuses any type of joint aspiration. She is requesting oral antibiotics and to go home and talk to Dr. Kaufman about it next week . She later then states she would like to go home and speak to her family about it. Myself as well as Dr. Oglesby went over risks of her leaving including septic arthritis, osteonecrosis/osteomyelitis, loss of limb function, amputation, bacteremia/septicemia, and . Patient verbalized understanding on several occasions. She states there is no changing her mind and she is adamantly refusing transfer at this time. She is agreeable to blood cultures and a dose of IV antibiotics here. Patient then understands that she will sign out AGAINST MEDICAL ADVICE. She was agreeable to blood cultures and a dose of IV vancomycin prior to discharge. Medical Records I reviewed the patient's medical records. Lab Data I reviewed the patient's lab results. 05/05/24 16:28 05/05/24 16:28 Radiology Impressions Wrist X-Ray 05/05/24 16:10 IMPRESSION: Mild degenerative change. No fracture or acute osseous abnormality. Laboratory Results WBC 14.88 10^3/uL (3.29-11.43) H 05/05/24 16: RBC 4.22 10^6/uL (3.85-5.65) 05/05/24 16: Hgb 12.60 g/dL (11.27-16.99) 05/05/24 16: Hct 41.7 % (36-47) 05/05/24 16: MCV 98.8 fl (85-98) H 05/05/24 16: MCH 29.9 pg (27-33) 05/05/24 16: MCHC 30.2 g/dL (30-55) 05/05/24 16: RDW 15.6 % (12.1-15.1) H 05/05/24 16: Plt Count 318 10^3/cmm (157-399) 05/05/24 16: MPV 9.5 fL (7.4-10.4) 05/05/24 16: Neut % (Auto) 86.6 % 05/05/24 16: Lymph % (Auto) 5.5 % 05/05/24 16: Cook % (Auto) 7.0 % 05/05/24 16: Eos % (Auto) 0.3 % 05/05/24 16: Baso % (Auto) 0.3 % 05/05/24: Neut # (Auto) 12.89 10^3/uL (1.8-7.7) H 05/05/24: Lymph # (Auto) 0.8 10^3/uL (0.8-4.8) 05/05/24 16: Cook # (Auto) 1.0 10^3/uL (0.2-0.9) H 05/05/24 16: Eos # (Auto) 0.0 10^3/uL (0.0-0.8) 05/05/24: Baso # (Auto) 0.1 10^3/uL (0.0-0.1) 05/05/24: Nucleated RBC % (auto) 0 % 05/05/24: Nucleated RBCs # 0.0 /100WBC 05/05/24 16: ESR 34 mm/hr (0-15) H 05/05/24 16: Sodium 136 mmol/L (136-145) 05/05/24 16: Potassium 4.0 mmol/L (3.5-5.1) 05/05/24 16: Chloride 99 mmol/L (98-107) 05/05/24 16: Carbon Dioxide 26 mmol/L (22-29) 05/05/24 16: Anion Gap 15.0 (5-19) 05/05/24 16: BUN 30 mg/dL (8-23) H 05/05/24 16: Creatinine 2.5 mg/dL (0.5-0.9) H 05/05/24 16:28 GFR Calculation Not Reportable 05/05/24 16:28 Glucose 117 mg/dL (65-115) H 05/05/24 16:28 Calculated Osmolality 289 mOsm/kg (285-295) 05/05/24 16:28 Calcium 8.6 mg/dL (8.5-10.5) 05/05/24 16:28 Total Bilirubin 0.8 mg/dL (0.15-1.2) 05/05/24 16:28 AST 16 U/L (0-32) 05/05/24 16:28 ALT 8 U/L (0-33) 05/05/24 16:28 Alkaline Phosphatase 137 U/L (35-105) H 05/05/24 16:28 C-Reactive Protein 224.2 mg/L (0.0-4.9) H 05/05/24 16:28 Total Protein 6.5 g/dL (6.6-8.7) L 05/05/24 16:28 Albumin 3.2 g/dL (3.5-5.2) L 05/05/24 16:28 Globulin 3.3 g/dL (1.3-4.6) 05/05/24 16:28 All radiology interpretation(s) finalized by discharge Discharge Plan Discharge Patient Disposition: Left Against Medical Advice Clinical Impression: Septic arthritis of wrist, left Qualifiers: Septic arthritis organism: due to unspecified organism Qualified Code(s): M00.9 - Pyogenic arthritis, unspecified Condition: Stable Prescriptions: New doxycycline monohydrate 100 mg capsule 100 mg PO Q12H 10 Days Qty: 20 0RF No Action amlodipine 2.5 mg tablet 2.5 mg PO DAILY Qty: 90 0RF albuterol sulfate 90 mcg/actuation HFA aerosol inhaler 2 puff inhalation Q4H PRN (Reason: Shortness Of Breath) Dose Instruction: INHALE 2 PUFFS BY MOUTH 4 TIMES DAILY (DME) cam walker See Rx Instructions .Route .MEDSUPPLY Qty: 1 0RF Rx Instructions: As directed (DME) Diabetic Shoes with 3 inserts See Rx Instructions .ROUTE .MEDSUPPLY Qty: 1 0RF Rx Instructions: As directed, HOME (DME) DME: Walker Unit See Rx Instructions .Route Qty: 1 0RF Rx Instructions: with wheels and a seat (DME) HOOPA boot See Rx Instructions .Route .MEDSUPPLY Qty: 1 0RF Rx Instructions: As directed pregabalin 50 mg capsule 50 mg PO BID Qty: 60 3RF (DME) Accutrend Glucose test strips Strip See Rx Instructions .Route Qty: 50 6RF Rx Instructions: As directed. Type 2 diabetes: once daily testing levothyroxine 100 mcg tablet 100 mcg PO DAILY Qty: 90 3RF Pacerone 100 mg tablet 100 mg PO BID Qty: 180 2RF hydrocodone-acetaminophen 7.5-325 mg tablet 1 tab PO Q12H PRN (Reason: pain) 30 Days Qty: 60 0RF metoprolol tartrate 25 mg tablet 12.5 mg PO BID Qty: 90 1RF cholecalciferol (vitamin D3) 125 mcg (5,000 unit) Tablet 5,000 unit PO DAILY Qty: 30 0RF furosemide 40 mg tablet 40 mg PO .QOD metolazone 5 mg tablet 5 mg PO DAILY PRN (Reason: swelling) Rx Instructions: as directed diclofenac sodium [Voltaren Arthritis Pain] 1 % gel 4 g topical QID PRN (Reason: Pain) Rx Instructions: apply to single knee, ankle, foot; for foot includes sole/toes/top of foot Xarelto 20 mg tablet 20 mg PO .8AM spironolactone 25 mg tablet 25 mg PO DAILY Referrals: Anna Kaufman MD [Primary Care Provider] - Activity Restrictions/Additional Instructions: As we discussed, you are leaving AGAINST MEDICAL ADVICE as you adamantly refuse any type of joint aspiration or transfer for orthopedic/hand surgery evaluation. You have been informed of these risks multiple times by multiple providers and you would still like to leave the emergency department. Coding Level of Care Code ED Certified Nurse Practitioner for [facility] Documented by User: Eros Oglesby DO 05/07/24 06:02 HPI - Extremity Problem General: Chief complaint: Extremity Problem,Nontraumatic Stated complaint: pain & swelling in lft hand & foot Time Seen by Provider: 05/05/24 15:55 Related Data Home Medications Medication Instructions Recorded Confirmed albuterol sulfate 90 mcg/actuation 2 puff inhalation Q4H PRN 11/08/23 05/06/24 aerosol inhaler Shortness Of Breath furosemide 40 mg tablet 40 mg PO .QOD 11/08/23 05/06/24 diclofenac sodium 1 % topical gel 4 g topical QID PRN Pain 05/05/24 05/06/24 (Voltaren Arthritis Pain) metolazone 5 mg tablet 5 mg PO DAILY PRN swelling 05/05/24 05/06/24 rivaroxaban 20 mg tablet (Xarelto) 20 mg PO .8AM 05/05/24 05/06/24 spironolactone 25 mg tablet 25 mg PO DAILY 05/05/24 05/06/24 Previous Rx's Medication Instructions Recorded cholecalciferol (vitamin D3) 125 5,000 unit PO DAILY #30 tabs 06/11/20 mcg (5,000 unit) tablet DME: Walker #1 ea 08/30/22 HOOPA boot #1 ea 11/17/22 blood sugar diagnostic (Accutrend #50 ea 04/27/23 Glucose test strips) amlodipine 2.5 mg tablet 2.5 mg PO DAILY #90 tabs 08/31/23 cam walker #1 ea 11/09/23 levothyroxine 100 mcg tablet 100 mcg PO DAILY #90 tabs 12/16/23 amiodarone 100 mg tablet (Pacerone) 100 mg PO BID #180 tabs 03/28/24 hydrocodone 7.5 mg-acetaminophen 1 tab PO Q12H PRN pain 30 days #60 04/16/24 325 mg tablet tabs metoprolol tartrate 25 mg tablet 12.5 mg (1/2 x 25 mg) PO BID #90 04/23/24 tabs Diabetic Shoes with 3 inserts #1 ea 04/24/24 pregabalin 50 mg capsule 50 mg PO BID feet pain #60 caps 04/30/24 doxycycline monohydrate 100 mg 100 mg PO Q12H 10 days #20 caps 05/05/24 capsule Allergies Allergy/AdvReac Type Severity Reaction Status Date / Time aspirin Allergy nausea Verified 05/05/24 14:45 influenza A (H1N1) virus Allergy unknown Verified 05/05/24 14:45 vaccine m-grey-split 2008 [From influenza A (H1N1)] [facility]: Medical History Metatarsalgia of both feet Venous insufficiency of both lower extremities Skin tag, acquired Lumbar disc disease with radiculopathy Nicotine abuse Hypothyroid CHF (congestive heart failure) Pt is wanting to wait for the Stress test till the VIrus is gone! Mixed hyperlipidemia Atrial fibrillation GERD (gastroesophageal reflux disease) Diabetes 1.5, managed as type 2 Hypercholesteremia Type 2 diabetes mellitus with diabetic polyneuropathy Hypertension Surgical History Hx laparoscopic cholecystectomy Hx of appendectomy Hx of tubal ligation Hx of cholecystectomy Family History Denies family history of Diabetes CAD (coronary artery disease) Clotting disorder Dementia Hyperlipidemia Psychiatric illness Chronic kidney disease (CKD) Suicide Anesthesia complication Bleeding disorder Family history of premature coronary artery disease Lung disease Cancer Hypertension Stroke Social History Smoking and tobacco/nicotine status: never used tobacco/nicotine Alcohol intake: never Substance/Drug Use: never Course Vital Signs: Vital signs: Vital Signs Temperature 98.3 F 05/05/24 14:39 Pulse Rate 73 05/05/24 20:00 Respiratory Rate 16 05/05/24 20:00 Blood Pressure 93/62 05/05/24 20:00 Pulse Oximetry 94 05/05/24 20:00 Oxygen Delivery Me thod Room Air 05/05/24 20:00 MDM - Extremity (Nontraumatic) Medical Decision Making I had Dr. Oglesby also assessed patient as her left wrist is red, significantly warm to the touch, edematous, and she is having significant discomfort. Concern for septic arthritis. White count of almost 15,000 with a CRP of over 220. Dr. Oglesby also shares this concern. We have spoken to Dr. Marmolejo who is recommending transfer. Patient is adamantly refusing transfer. She refuses any type of joint aspiration. She is requesting oral antibiotics and to go home and talk to Dr. Kaufman about it next week . She later then states she would like to go home and speak to her family about it. Myself as well as Dr. Oglesby went over risks of her leaving including septic arthritis, osteonecrosis/osteomyelitis, loss of limb function, amputation, bacteremia/septicemia, and . Patient verbalized understanding on several occasions. She states there is no changing her mind and she is adamantly refusing transfer at this time. She is agreeable to blood cultures and a dose of IV antibiotics here. Patient then understands that she will sign out AGAINST MEDICAL ADVICE. She was agreeable to blood cultures and a dose of IV vancomycin prior to discharge. Reviewed case closely with Laura Ortiz. Reviewed imaging labs discussed extensively with her. Examined patient as above. Concur with documentation of above exam. I discussed with Dr. Marmolejo given the extent of the infection and elevation in CRP. Patient has a elevated white count as well. Very concerned about this being a septic joint. There is already some tracking proximally along the volar surface of the forearms along the flexor tendons. Because of her chronic kidney disease were not able to do a CT. MRI is not available. Long discussion with the patient with Laura Ortiz present we strongly encouraged her to allow us to transfer her to a tertiary care center where hand surgeon could evaluate her. We did give her a single dose of vancomycin were unable to convince her to stay. Discussed with her the potential risks including loss of function of the limb loss of the limb itself or even sepsis and which is a significant consideration given her comorbidities. Despite this patient refuses to allow us to transfer her insist on leaving AMA. She wants to talk to her primary care doctor to see what he recommends next week. Discussed with her that this is a time critical diagnosis and that should not be allowed to wait for several days to make a decision. Despite this information patient still eventually opted to leave AMA we were able to give her a single dose of IV vancomycin and Laura Ortiz prescribed her antibiotics at the time of discharge. 30 minutes spent reviewing and discussing case examining patient and discussing recommended course of care with the patient. Lab Data 05/05/24 16:28 05/05/24 16:28 Radiology Impressions Wrist X-Ray 05/05/24 16:10 IMPRESSION: Mild degenerative change. No fracture or acute osseous abnormality. Laboratory Results WBC 14.88 10^3/uL (3.29-11.43) H 05/05/24 16: RBC 4.22 10^6/uL (3.85-5.65) 05/05/24 16: Hgb 12.60 g/dL (11.27-16.99) 05/05/24 16: Hct 41.7 % (36-47) 05/05/24 16: MCV 98.8 fl (85-98) H 05/05/24 16: MCH 29.9 pg (27-33) 05/05/24 16: MCHC 30.2 g/dL (30-55) 05/05/24 16: RDW 15.6 % (12.1-15.1) H 05/05/24: Plt Count 318 10^3/cmm (157-399) 05/05/24 16: MPV 9.5 fL (7.4-10.4) 05/05/24 16: Neut % (Auto) 86.6 % 05/05/24: Lymph % (Auto) 5.5 % 05/05/24: Cook % (Auto) 7.0 % 05/05/24: Eos % (Auto) 0.3 % 05/05/24: Baso % (Auto) 0.3 % 05/05/24: Neut # (Auto) 12.89 10^3/uL (1.8-7.7) H 05/05/24: Lymph # (Auto) 0.8 10^3/uL (0.8-4.8) 05/05/24 16: Cook # (Auto) 1.0 10^3/uL (0.2-0.9) H 05/05/24: Eos # (Auto) 0.0 10^3/uL (0.0-0.8) 05/05/24: Baso # (Auto) 0.1 10^3/uL (0.0-0.1) 05/05/24: Nucleated RBC % (auto) 0 % 05/05/24: Nucleated RBCs # 0.0 /100WBC 05/05/24 16: ESR 34 mm/hr (0-15) H 05/05/24 16:28 Sodium 136 mmol/L (136-145) 05/05/24 16:28 Potassium 4.0 mmol/L (3.5-5.1) 05/05/24 16:28 Chloride 99 mmol/L (98-107) 05/05/24 16:28 Carbon Dioxide 26 mmol/L (22-29) 05/05/24 16:28 Anion Gap 15.0 (5-19) 05/05/24 16:28 BUN 30 mg/dL (8-23) H 05/05/24 16:28 Creatinine 2.5 mg/dL (0.5-0.9) H 05/05/24 16:28 GFR Calculation Not Reportable 05/05/24 16:28 Glucose 117 mg/dL (65-115) H 05/05/24 16:28 Calculated Osmolality 289 mOsm/kg (285-295) 05/05/24 16:28 Calcium 8.6 mg/dL (8.5-10.5) 05/05/24 16:28 Total Bilirubin 0.8 mg/dL (0.15-1.2) 05/05/24 16:28 AST 16 U/L (0-32) 05/05/24 16:28 ALT 8 U/L (0-33) 05/05/24 16:28 Alkaline Phosphatase 137 U/L (35-105) H 05/05/24 16:28 C-Reactive Protein 224.2 mg/L (0.0-4.9) H 05/05/24 16:28 Total Protein 6.5 g/dL (6.6-8.7) L 05/05/24 16:28 Albumin 3.2 g/dL (3.5-5.2) L 05/05/24 16:28 Globulin 3.3 g/dL (1.3-4.6) 05/05/24 16:28 Discharge Plan Discharge Patient Disposition: Left Against Medical Advice Clinical Impression: Septic arthritis of wrist, left Qualifiers: Septic arthritis organism: due to unspecified organism Qualified Code(s): M00.9 - Pyogenic arthritis, unspecified Condition: Stable Prescriptions: New doxycycline monohydrate 100 mg capsule 100 mg PO Q12H 10 Days Qty: 20 0RF No Action amlodipine 2.5 mg tablet 2.5 mg PO DAILY Qty: 90 0RF albuterol sulfate 90 mcg/actuation HFA aerosol inhaler 2 puff inhalation Q4H PRN (Reason: Shortness Of Breath) Dose Instruction: INHALE 2 PUFFS BY MOUTH 4 TIMES DAILY (DME) cam walker See Rx Instructions .Route .MEDSUPPLY Qty: 1 0RF Rx Instructions: As directed (DME) Diabetic Shoes with 3 inserts See Rx Instructions .ROUTE .MEDSUPPLY Qty: 1 0RF Rx Instructions: As directed, HOME (DME) DME: Walker Unit See Rx Instructions .Route Qty: 1 0RF Rx Instructions: with wheels and a seat (DME) HOOPA boot See Rx Instructions .Route .MEDSUPPLY Qty: 1 0RF Rx Instructions: As directed pregabalin 50 mg capsule 50 mg PO BID Qty: 60 3RF (DME) Accutrend Glucose test strips Strip See Rx Instructions .Route Qty: 50 6RF Rx Instructions: As directed. Type 2 diabetes: once daily testing levothyroxine 100 mcg tablet 100 mcg PO DAILY Qty: 90 3RF Pacerone 100 mg tablet 100 mg PO BID Qty: 180 2RF hydrocodone-acetaminophen 7.5-325 mg tablet 1 tab PO Q12H PRN (Reason: pain) 30 Days Qty: 60 0RF metoprolol tartrate 25 mg tablet 12.5 mg PO BID Qty: 90 1RF cholecalciferol (vitamin D3) 125 mcg (5,000 unit) Tablet 5,000 unit PO DAILY Qty: 30 0RF furosemide 40 mg tablet 40 mg PO .QOD metolazone 5 mg tablet 5 mg PO DAILY PRN (Reason: swelling) Rx Instructions: as directed diclofenac sodium [Voltaren Arthritis Pain] 1 % gel 4 g topical QID PRN (Reason: Pain) Rx Instructions: apply to single knee, ankle, foot; for foot includes sole/toes/top of foot Xarelto 20 mg tablet 20 mg PO .8AM spironolactone 25 mg tablet 25 mg PO DAILY Referrals: Anna Kaufman MD [Primary Care Provider] - Activity Restrictions/Additional Instructions: As we discussed, you are leaving AGAINST MEDICAL ADVICE as you adamantly refuse any type of joint aspiration or transfer for orthopedic/hand surgery evaluation. You have been informed of these risks multiple times by multiple providers and you would still like to leave the emergency department. Coding Level of Care Code ED Certified Nurse Practitioner for Irving Rosario
[2024-05-05 16:31] VITALS: BP 134/77; PULSE 86; RESP 16; O2SAT 96
[2024-05-05 16:35] LABS: Basophils # 0.1 10^3/uL (0.0-0.1); Basophils % 0.3 %; Eosinophils % 0.3 %; Hematocrit 41.7 % (36-47); Lymphocytes # 0.8 10^3/uL (0.8-4.8); Lymphocytes % 5.5 %; Mean Corpuscular HGB Conc 30.2 g/dL (30-55); Mean Corpuscular Hemoglobin 29.9 pg (27-33); Mean Corpuscular Volume 98.8 fl (85-98); Mean Platelet Volume 9.5 fL (7.4-10.4); Neutrophils # 12.89 10^3/uL (1.8-7.7); Neutrophils % 86.6 %; Nucleated Red Blood Cells % 0 %; Platelet Count 318 10^3/cmm (157-399); Red Blood Count 4.22 10^6/uL (3.85-5.65); Red Cell Distribution Width 15.6 % (12.1-15.1); White Blood Count 14.88 10^3/uL (3.29-11.43)
[2024-05-05 16:45] LABS: Erythrocyte Sedimentation Rate 34 mm/hr (0-15)
[2024-05-05 16:54] LABS: Alanine Aminotransferase 8 U/L (0-33); Albumin Level 3.2 g/dL (3.5-5.2); Alkaline Phosphatase 137 U/L (35-105); Aspartate Amino Transferase 16 U/L (0-32); Blood Urea Nitrogen 30 mg/dL (8-23); C Reactive Protein 224.2 mg/L (0.0-4.9); Calcium 8.6 mg/dL (8.5-10.5); Carbon Dioxide 26 mmol/L (22-29); Chloride 99 mmol/L (98-107); Creatinine Clr Calc Pharmacy 28.9399; Globulin 3.3 g/dL (1.3-4.6); Glucose 117 mg/dL (65-115); Osmolality Calculated 289 mOsm/kg (285-295); Sodium 136 mmol/L (136-145); Total Bilirubin 0.8 mg/dL (0.15-1.2); Total Protein 6.5 g/dL (6.6-8.7)
[2024-05-05 17:00] VITALS: BP 116/76; PULSE 84; RESP 14; O2SAT 96
[2024-05-05] MEDS: vancomycin 1,250 MG/250 ML PIGGYBACK 166.67 MG IV (18:32)
[2024-05-05 19:20] VITALS: BP 151/64; PULSE 77; RESP 16; O2SAT 95
[2024-05-05 19:42] VITALS: BP 105/63; PULSE 79; RESP 16; O2SAT 97
[2024-05-05 20:00] VITALS: BP 93/62; PULSE 73; RESP 16; O2SAT 94
== END 2024-05-05 20:50 | disposition left against medical advice (07) ==
PROVIDERS: Emergency Provider Physician Assistant; PCP Family Medicine
DX: M00.9 Pyogenic arthritis, unspecified (principal); E11.42 Type 2 diabetes mellitus with diabetic polyneuropathy; I11.0 Hypertensive heart disease with heart failure; I50.9 Heart failure, unspecified; E78.2 Mixed hyperlipidemia
CPT/HCPCS: 36415; 73110; 80053; 85025; 85651; 86140; 87040; 96365; 96366; 99284; J3370

== ENCOUNTER 2024-05-06 10:16 | Emergency (ER) | payer MEDICARE, MEDICAID, SELFPAY ==
[2024-05-06] VITALS (7 sets, daily range): BP systolic 90–130; BP diastolic 51–73; PULSE 70–85; RESP 16; TEMP 36.4; O2SAT 90–98; BMI 39.9
--- NOTE | 2024-05-06 11:09 | XRR_ITS ---
PROCEDURE INFORMATION: Exam: XR Left Hand Exam date and time: 05/06/2024 12:12 PM Age: 69 years old Clinical indication: Pain; Hand; Left; Additional info: Thumb infection TECHNIQUE: Imaging protocol: Radiologic exam of the left hand. Views: 3 or more views. Frontal Oblique Lateral COMPARISON: CR (UP EXM, ) 05/05/2024 4:09 PM FINDINGS: Bones/joints: Diffusely decreased bone density. Mild to moderate generalized bony degenerative changes. No visualized evidence for acute bony fracture or dislocation. Bony structures appear otherwise unremarkable. Soft tissues: Diffuse mild to moderate soft tissue edema. Notes: If there is further concern, recommend follow-up radiographs or MRI for complete assessment. XR/XR hand LT min 3V* [id number] IMPRESSION: 1. No acute bony abnormality identified. 2. Chronic bony changes. 3. Soft tissue edema.
[2024-05-06 11:40] LABS: Basophils # 0.1 10^3/uL (0.0-0.1); Basophils % 0.7 %; Eosinophils # 0.1 10^3/uL (0.0-0.8); Eosinophils % 1.4 %; Hematocrit 40.8 % (36-47); Lymphocytes # 0.7 10^3/uL (0.8-4.8); Lymphocytes % 6.9 %; Mean Corpuscular HGB Conc 29.7 g/dL (30-55); Mean Corpuscular Hemoglobin 30.2 pg (27-33); Mean Corpuscular Volume 101.7 fl (85-98); Mean Platelet Volume 9.3 fL (7.4-10.4); Monocytes # 0.7 10^3/uL (0.2-0.9); Monocytes % 7.4 %; Neutrophils # 8.28 10^3/uL (1.8-7.7); Neutrophils % 83.4 %; Nucleated Red Blood Cells % 0 %; Platelet Count 333 10^3/cmm (157-399); Red Blood Count 4.01 10^6/uL (3.85-5.65); Red Cell Distribution Width 15.5 % (12.1-15.1); White Blood Count 9.94 10^3/uL (3.29-11.43)
[2024-05-06 11:42] LABS: Erythrocyte Sedimentation Rate 36 mm/hr (0-15)
[2024-05-06 12:02] LABS: Anion Gap 13.8 (5-19); Blood Urea Nitrogen 31 mg/dL (8-23); C Reactive Protein 191.9 mg/L (0.0-4.9); Calcium 8.8 mg/dL (8.5-10.5); Carbon Dioxide 26 mmol/L (22-29); Chloride 98 mmol/L (98-107); Creatinine Clr Calc Pharmacy 26.9621; Glucose 161 mg/dL (65-115); Osmolality Calculated 288 mOsm/kg (285-295); Potassium 3.8 mmol/L (3.5-5.1); Sodium 134 mmol/L (136-145)
--- NOTE | 2024-05-06 14:36 | W.ED.EXTPRO ---
HPI - Extremity Problem General: Chief complaint: Extremity Problem,Nontraumatic Stated complaint: left hand injury Time Seen by Provider: 05/06/24 13:17 History of Present Illness: 69 yo f diabetic with CKD who returns to ER today for left hand/wrist pain. Patient was seen in ED yesterday and was told she likely had septic joint. She left AMA. Patient returns stating left hand pain/swelling/redness getting worse. She has soft BP on arrival. Denies systemic f/c. No hx of gout/pseudogout. Denies any skin wounds or known precipitating causes. Most of her pain is in the 2nd MCP today. Pt reports severe pain with flexing left fingers, in particular the left 2nd mcp Associated symptoms: Deny chest pain or fever(s) Related Data Home Medications Medication Instructions Recorded Confirmed albuterol sulfate 90 mcg/actuation 2 puff inhalation Q4H PRN 11/08/23 05/06/24 aerosol inhaler Shortness Of Breath furosemide 40 mg tablet 40 mg PO .QOD 11/08/23 05/06/24 diclofenac sodium 1 % topical gel 4 g topical QID PRN Pain 05/05/24 05/06/24 (Voltaren Arthritis Pain) metolazone 5 mg tablet 5 mg PO DAILY PRN swelling 05/05/24 05/06/24 rivaroxaban 20 mg tablet (Xarelto) 20 mg PO .8AM 05/05/24 05/06/24 spironolactone 25 mg tablet 25 mg PO DAILY 05/05/24 05/06/24 Previous Rx's Medication Instructions Recorded cholecalciferol (vitamin D3) 125 5,000 unit PO DAILY #30 tabs 06/11/20 mcg (5,000 unit) tablet DME: Walker #1 ea 08/30/22 GRAND TRAVERSE boot #1 ea 11/17/22 blood sugar diagnostic (Accutrend #50 ea 04/27/23 Glucose test strips) amlodipine 2.5 mg tablet 2.5 mg PO DAILY #90 tabs 08/31/23 cam walker #1 ea 11/09/23 levothyroxine 100 mcg tablet 100 mcg PO DAILY #90 tabs 12/16/23 amiodarone 100 mg tablet (Pacerone) 100 mg PO BID #180 tabs 03/28/24 hydrocodone 7.5 mg-acetaminophen 1 tab PO Q12H PRN pain 30 days #60 04/16/24 325 mg tablet tabs metoprolol tartrate 25 mg tablet 12.5 mg (1/2 x 25 mg) PO BID #90 04/23/24 tabs Diabetic Shoes with 3 inserts #1 ea 04/24/24 pregabalin 50 mg capsule 50 mg PO BID feet pain #60 caps 04/30/24 doxycycline monohydrate 100 mg 100 mg PO Q12H 10 days #20 caps 05/05/24 capsule Allergies Allergy/AdvReac Type Severity Reaction Status Date / Time aspirin Allergy nausea Verified 05/05/24 14:45 influenza A (H1N1) virus Allergy unknown Verified 05/05/24 14:45 vaccine [id number] 2008 [From influenza A (H1N1)] Review of Systems General: Reports: 10 or more systems reviewed and unremarkable except in HPI and below Const: Denies: fever(s), chills or body aches ENMT: Denies: throat pain Card: Denies: chest pain, edema or syncope Resp: Denies: dyspnea or productive cough : Denies: flank pain, dysuria or urinary frequency Neuro: Denies: headache(s), numbness in extremities, weakness in extremities, lack of coordination or difficulty walking PFS ED PFSH: Medical History Metatarsalgia of both feet Venous insufficiency of both lower extremities Skin tag, acquired Lumbar disc disease with radiculopathy Nicotine abuse Hypothyroid CHF (congestive heart failure) Pt is wanting to wait for the Stress test till the VIrus is gone! Mixed hyperlipidemia Atrial fibrillation GERD (gastroesophageal reflux disease) Diabetes 1.5, managed as type 2 Hypercholesteremia Type 2 diabetes mellitus with diabetic polyneuropathy Hypertension Surgical History Hx laparoscopic cholecystectomy Hx of appendectomy Hx of tubal ligation Hx of cholecystectomy Family History Denies family history of Diabetes CAD (coronary artery disease) Clotting disorder Dementia Hyperlipidemia Psychiatric illness Chronic kidney disease (CKD) Suicide Anesthesia complication Bleeding disorder Family history of premature coronary artery disease Lung disease Cancer Hypertension Stroke Social History Smoking and tobacco/nicotine status: never used tobacco/nicotine Alcohol intake: never Substance/Drug Use: never Physical Exam Const: COMMON NORMALS: no limitations, alert and well nourished EXAM LIMITATIONS: no altered mental status HENMT: COMMON NORMALS: normocephalic, atraumatic and external ears normal HEAD & SCALP: normocephalic and atraumatic EXTERNAL EAR: Yes external ears normal MOUTH: no muffled voice Eye: COMMON NORMALS: EOMs intact bilaterally, conjunctivae normal and no scleral icterus CONJUNCTIVA: Yes conjunctivae normal Neck/C-Spine: COMMON NORMALS: no JVD GENERAL: Yes normal visual inspection and Yes trachea midline Resp: COMMON NORMALS: normal respiratory effort and No use of accessory muscles Cardio: COMMON NORMALS: no JVD, regular rate and regular rhythm RATE: regular rate RHYTHM: regular rhythm Extremity: NARRATIVE EXTREMITY EXAM: Left UE: Left shoulder, elbow both unremarkable. Left wrist tender with ROM. Left hand 1,2, 3rd MCPs are tender and pain with active ROM. There is erythema of the left wrist and dorsum of the hand. THere is swelling of the 2nd MCP and pain with any ROM. Cap refill and motor are intact. Radial pulse 2+. Skin warm to touch. Neuro: COMMON NORMALS: moves all extremities, no focal motor deficits and no sensory deficits noted SENSORIUM/ORIENTATION: Yes alert SPEECH: speech normal Psych: COMMON NORMALS: mental status grossly normal, Normal thought process present, cooperative, normal affect and speech normal SPEECH: Yes normal speech THOUGHT PROCESS: Normal thought process present Course Vital Signs: Vital signs: Vital Signs Temperature 97.5 F L 05/06/24 10:43 Pulse Rate 72 05/06/24 16:10 Respiratory Rate 16 05/06/24 10:43 Blood Pressure 110/67 05/06/24 16:10 Pulse Oximetry 98 05/06/24 16:10 Oxygen Delivery Me thod Room Air 05/06/24 10:43 MDM - Extremity (Nontraumatic) Medical Decision Making Erythema, tenderness, swelling from left wrist through left hand w/ most severe left 2nd MCP. ddx includes septic arthritis, crystal arthropathy, seropositive arthritis (eg rheumatoid but not hx), cellulitis, other autoimmune arthritis, other. ESR/CRP remain high. BP soft . Plan: IVF 30 cc/kg IBW, lactic acid, xray, vanc/zosyn, transfer to center with hand surgery. I don't feel any effusion in wrist or hand that would be amenable to joint aspiration. Xray left hand unremarkable. Lactic acid within normal limits. BUN and creatinine remain high. Uric acid is elevated but no comparison. It is noted that a high uric acid makes gout more likely but is not diagnostic. Patient has CKD so colchicine not given. Same reason NSAIDs are not given. Patient does have diabetes but not a diabetic emergency. I am going to give a small dose of methylprednisolone at 40 mg since crystal arthropathy is on the differential diagnosis. I am hopeful that at this low dose, it will not significantly suppress her immune system. It is noted that septic arthritis remains the diagnosis of exclusion. Hand surgery is not available here. Dr. Marmolejo recommended transfer yesterday. Both [facility] are on divert and cannot accept the patient. [facility] has a waiting list. [facility] has been consulted. Dr Marmolejo consulted and still recommends transfer. [facility] consulted for transfer. They are discussing with their ortho team. After multiple discussions, I was informed they do not have hand surgery. Pt reassessed and unchanged. I then consulted with [facility]. After discussing with Dr. Jany Medrano, she was excepted to the emergency department at [facility] by Dr. Persaud. Differential diagnosis remains cellulitis, seropositive arthropathy, septic joint, crystal arthropathy. Patient has been covered with antibiotics and low-dose steroid. Lab Data 05/06/24 11:30 05/06/24 11:30 Radiology Impressions Hand X-Ray 05/06/24 11:09 IMPRESSION: 1. No acute bony abnormality identified. 2. Chronic bony changes. 3. Soft tissue edema. Laboratory Results WBC 9.94 10^3/uL (3.29-11.43) 05/06/24 11:30 RBC 4.01 10^6/uL (3.85-5.65) 05/06/24 11:30 Hgb 12.10 g/dL (11.27-16.99) 05/06/24 11:30 Hct 40.8 % (36-47) 05/06/24 11:30 MCV 101.7 fl (85-98) H 05/06/24 11:30 MCH 30.2 pg (27-33) 05/06/24 11:30 MCHC 29.7 g/dL (30-55) L 05/06/24 11:30 RDW 15.5 % (12.1-15.1) H 05/06/24 11:30 Plt Count 333 10^3/cmm (157-399) 05/06/24 11:30 MPV 9.3 fL (7.4-10.4) 05/06/24 11:30 Neut % (Auto) 83.4 % 05/06/24 11:30 Lymph % (Auto) 6.9 % 05/06/24 11:30 Cowley % (Auto) 7.4 % 05/06/24 11:30 Eos % (Auto) 1.4 % 05/06/24 11:30 Baso % (Auto) 0.7 % 05/06/24 11:30 Neut # (Auto) 8.28 10^3/uL (1.8-7.7) H 05/06/24 11:30 Lymph # (Auto) 0.7 10^3/uL (0.8-4.8) L 05/06/24 11:30 Cowley # (Auto) 0.7 10^3/uL (0.2-0.9) 05/06/24 11:30 Eos # (Auto) 0.1 10^3/uL (0.0-0.8) 05/06/24 11:30 Baso # (Auto) 0.1 10^3/uL (0.0-0.1) 05/06/24 11:30 Nucleated RBC % (auto) 0 % 05/06/24 11:30 Nucleated RBCs # 0.0 /100WBC 05/06/24 11:30 ESR 36 mm/hr (0-15) H 05/06/24 11:30 Sodium 134 mmol/L (136-145) L 05/06/24 11:30 Potassium 3.8 mmol/L (3.5-5.1) 05/06/24 11:30 Chloride 98 mmol/L (98-107) 05/06/24 11:30 Carbon Dioxide 26 mmol/L (22-29) 05/06/24 11:30 Anion Gap 13.8 (5-19) 05/06/24 11:30 BUN 31 mg/dL (8-23) H 05/06/24 11:30 Creatinine 2.6 mg/dL (0.5-0.9) H 05/06/24 11:30 GFR Calculation Not Reportable 05/06/24 11:30 Glucose 161 mg/dL (65-115) H 05/06/24 11:30 Calculated Osmolality 288 mOsm/kg (285-295) 05/06/24 11:30 Lactic Acid 1.3 mmol/L (0.5-2.2) 05/06/24 13:34 Uric Acid 9.2 mg/dL (2.4-5.7) H 05/06/24 11:30 Calcium 8.8 mg/dL (8.5-10.5) 05/06/24 11:30 C-Reactive Protein 191.9 mg/L (0.0-4.9) H 05/06/24 11:30 All radiology interpretation(s) finalized by discharge Discharge Plan Discharge Patient Disposition: Xfer Short-Term Hosp Clinical Impression: Swelling of joint of left hand, Acute arthritis, Erythema of hand Condition: Stable Referrals: Anna Kaufman MD [Primary Care Provider] - Coding Level of Care Code ED Supervisor [place] Department for Robing Abraham
[2024-05-06 15:03] LABS: Uric Acid 9.2 mg/dL (2.4-5.7)
[2024-05-06 15:10] LABS: Lactic Sepsis W/Reflex 1.3 mmol/L (0.5-2.2)
[2024-05-06] MEDS: piperacillin-tazobactam 3.375 GM in sodium chloride 0.9% (plus) 50 ML IV (15:11)
[2024-05-06] MEDS: vancomycin 2,000 MG/400 ML PIGGYBACK 200 MG IV (15:13)
[2024-05-06] MEDS: SODIUM CHLORIDE 0.9% 1917 ML IV (15:13)
[2024-05-06] MEDS: methylPREDNISolone sod succ 40 mg/mL INJ IVP (16:16)
[2024-05-06] MEDS: HYDROcodone-acetaminophen 5-325 mg Tablet 1 TAB PO (19:57)
[2024-05-06] MEDS: ondansetron 2 mg/ML SDV 2 mL 4 MG IVP (19:57)
--- NOTE | 2024-05-06 20:03 | PC.NURSE ---
Pt refused IV morphine, returned to pyxis.
== END 2024-05-06 20:00 | disposition short-term general hospital (02) ==
PROVIDERS: Emergency Provider Emergency Medicine; PCP Family Medicine
DX: M76.42 Tibial collateral bursitis [Pellegrini-Stieda], left leg (principal); M19.90 Unspecified osteoarthritis, unspecified site; L53.8 Other specified erythematous conditions; E11.42 Type 2 diabetes mellitus with diabetic polyneuropathy; I11.0 Hypertensive heart disease with heart failure; I50.9 Heart failure, unspecified
CPT/HCPCS: 36415; 73130; 80048; 83605; 84550; 85025; 85651; 86140; 87040; 96365; 96366; 96367; 96375; 99285; J2405; J2543; J2919; J3372; J7030

== ENCOUNTER → 2024-05-15 12:11 | Outpatient (BNVA) | payer MEDICARE, MEDICAID, SELFPAY | PROVIDERS: PCP Family Medicine; Visit Provider Family Medicine | DX: I10 Essential (primary) hypertension (principal); M10.9 Gout, unspecified; I87.2 Venous insufficiency (chronic) (peripheral); N17.9 Acute kidney failure, unspecified; N18.31 Chronic kidney disease, stage 3a; M77.41 Metatarsalgia, right foot; M77.42 Metatarsalgia, left foot | CPT/HCPCS: 80048; 84550; 85651 ==

== ENCOUNTER → 2024-06-07 10:20 | Outpatient (BNVA) | payer MEDICARE, MEDICAID, SELFPAY | PROVIDERS: PCP Family Medicine; Visit Provider Nurse Practitioner Family | DX: I11.0 Hypertensive heart disease with heart failure (principal); I50.9 Heart failure, unspecified; I48.0 Paroxysmal atrial fibrillation; I34.0 Nonrheumatic mitral (valve) insufficiency; I87.2 Venous insufficiency (chronic) (peripheral); E78.5 Hyperlipidemia, unspecified; Z87.891 Personal history of nicotine dependence; E13.9 Other specified diabetes mellitus without complications; Z79.01 Long term (current) use of anticoagulants | CPT/HCPCS: 99214 ==

== ENCOUNTER → 2024-06-25 10:01 | Outpatient (BNVA) | payer MEDICARE, MEDICAID, SELFPAY | PROVIDERS: PCP Family Medicine; Visit Provider Family Medicine | DX: N17.9 Acute kidney failure, unspecified (principal); N18.31 Chronic kidney disease, stage 3a; I10 Essential (primary) hypertension; E79.0 Hyperuricemia without signs of inflammatory arthritis and tophaceous disease | CPT/HCPCS: 80048; 80069; 82310; 82570; 83970; 84156; 84550; 85025 ==

== ENCOUNTER → 2024-07-02 08:27 | Outpatient (BNVA) | payer MEDICARE, MEDICAID, SELFPAY | PROVIDERS: PCP Family Medicine; Visit Provider Family Medicine | DX: I50.32 Chronic diastolic (congestive) heart failure (principal); E13.9 Other specified diabetes mellitus without complications | CPT/HCPCS: 80048 ==

== ENCOUNTER → 2024-07-16 13:44 | Outpatient (BNVA) | payer MEDICARE, MEDICAID, SELFPAY | PROVIDERS: PCP Family Medicine; Visit Provider Family Medicine | DX: I10 Essential (primary) hypertension (principal); E79.0 Hyperuricemia without signs of inflammatory arthritis and tophaceous disease; N18.9 Chronic kidney disease, unspecified | CPT/HCPCS: 80053; 80069; 84550 ==

== ENCOUNTER 2024-08-06 12:59 | Outpatient (CLI) | payer MEDICARE, MEDICAID, SELFPAY ==
--- NOTE | 2024-08-06 15:00 | MM_ITS ---
WS: [id number] BILATERAL 3D TOMOSYNTHESIS DIGITAL SCREENING MAMMOGRAPHY WITH CAD CLINICAL INFORMATION: screening for breast cancer HISTORY: Screening mammogram. No current complaints. COMPARISON: 2011 TECHNIQUE: Bilateral CC and MLO views. FINDINGS: Scattered fibroglandular densities bilaterally. No suspicious focal mass, asymmetry, calcifications, or architectural distortion. No evidence of malignancy. Punctate and lucent centered calcifications. MM/MM scr tomosynthesis [id number] IMPRESSION: DENSITY: There are scattered areas of fibroglandular density. BI-RADS: 2 - Benign. FOLLOW UP: 1 Year Follow-up Recommend return to annual screening mammography.
== END 2024-08-06 13:00 | disposition home or self-care (01) ==
PROVIDERS: PCP Family Medicine; Visit Provider Family Medicine
DX: Z12.31 Encounter for screening mammogram for malignant neoplasm of breast (principal); R92.323 Mammographic fibroglandular density, bilateral breasts; R92.1 Mammographic calcification found on diagnostic imaging of breast
CPT/HCPCS: 77063; 77067

== ENCOUNTER → 2024-08-07 10:07 | Outpatient (BNVA) | payer MEDICARE, MEDICAID, SELFPAY | PROVIDERS: PCP Family Medicine; Visit Provider Podiatrist Foot & Ankle Surgery | DX: E11.42 Type 2 diabetes mellitus with diabetic polyneuropathy (principal); L60.3 Nail dystrophy; I73.9 Peripheral vascular disease, unspecified | CPT/HCPCS: 11721 ==

== ENCOUNTER → 2024-08-27 08:42 | Outpatient (BNVA) | payer MEDICARE, MEDICAID, SELFPAY | PROVIDERS: PCP Family Medicine; Visit Provider Family Medicine | DX: E13.9 Other specified diabetes mellitus without complications (principal); N17.9 Acute kidney failure, unspecified; N18.31 Chronic kidney disease, stage 3a; E79.0 Hyperuricemia without signs of inflammatory arthritis and tophaceous disease | CPT/HCPCS: 80069; 82310; 82570; 83970; 84156; 84550; 85025 ==

== ENCOUNTER → 2024-10-08 11:16 | Outpatient (BNVA) | payer MEDICARE, MEDICAID, SELFPAY | PROVIDERS: PCP Family Medicine; Visit Provider Family Medicine | DX: I10 Essential (primary) hypertension (principal); E03.9 Hypothyroidism, unspecified; M77.41 Metatarsalgia, right foot; M77.42 Metatarsalgia, left foot | CPT/HCPCS: 80053; 84443; 84550 ==

== ENCOUNTER → 2024-11-06 08:41 | Outpatient (BNVA) | payer MEDICARE, MEDICAID, SELFPAY | PROVIDERS: PCP Family Medicine; Visit Provider Podiatrist Foot & Ankle Surgery | DX: E11.42 Type 2 diabetes mellitus with diabetic polyneuropathy (principal); L60.3 Nail dystrophy; E11.8 Type 2 diabetes mellitus with unspecified complications; I73.9 Peripheral vascular disease, unspecified | CPT/HCPCS: 11721 ==

== ENCOUNTER → 2024-11-28 11:26 | Outpatient (BNVA) | payer MEDICARE, MEDICAID, SELFPAY | PROVIDERS: PCP Family Medicine; Visit Provider Family Medicine | DX: N18.31 Chronic kidney disease, stage 3a (principal); N17.9 Acute kidney failure, unspecified; I73.9 Peripheral vascular disease, unspecified; N18.9 Chronic kidney disease, unspecified | CPT/HCPCS: 80069; 82310; 82570; 83970; 84156; 85025 ==

== ENCOUNTER → 2024-12-24 10:15 | Outpatient (BNVA) | payer MEDICARE, MEDICAID, SELFPAY | PROVIDERS: PCP Family Medicine; Visit Provider Internal Medicine Cardiovascular Disease | DX: I48.91 Unspecified atrial fibrillation (principal); Z79.01 Long term (current) use of anticoagulants; I11.0 Hypertensive heart disease with heart failure; I50.9 Heart failure, unspecified; E78.00 Pure hypercholesterolemia, unspecified; I34.0 Nonrheumatic mitral (valve) insufficiency; I87.2 Venous insufficiency (chronic) (peripheral); Z79.899 Other long term (current) drug therapy; R07.9 Chest pain, unspecified; E78.5 Hyperlipidemia, unspecified | CPT/HCPCS: 36415; 80076; 84443; 93005; 99214 ==

== ENCOUNTER 2025-01-26 10:15 | Emergency (ER) | payer MEDICARE, MEDICAID, SELFPAY ==
--- OUTSIDE RECORDS SUMMARY | 2025-01-26 10:21 | XMS_ITS | Clinical Summary ---
Author Organization [facility], [facility] Address [address] [place] [address] Phone Care Team Providers Care Carpet Winder Name Role Phone Anna Kaufman MD Primary Care Provider [phone] Allergies Active Allergy Reactions Criticality Noted Date Comments Aspirin Nausea 09/23/2020 Influenza A (H1n1) Monovalent Vaccine 09/23/2020 Medications Cholecalciferol 125 MCG (5000 UT) tablet Take 1 tablet by mouth 1 (one) time each day Active metoprolol tartrate (LOPRESSOR) 50 MG tablet Take 25 mg by mouth 2 (two) times a day Active furosemide (LASIX) 40 MG tablet Take 40 mg by mouth 1 (one) time each day Active levothyroxine sodium (TIROSINT) 100 MCG capsule Take 100 mcg by mouth 1 (one) time each day Active rivaroxaban (XARELTO) 20 MG tablet Take 20 mg by mouth 1 (one) time each day with dinner Active spironolactone (ALDACTONE) 25 MG tablet Take 25 mg by mouth 1 (one) time each day Active albuterol HFA (PROVENTIL HFA;VENTOLIN HFA) 108 (90 Base) MCG/ACT inhaler Inhale 2 puffs every 6 (six) hours if needed 3 Active HYDROcodone-aceta minophen (NORCO) 5-325 MG per tablet Take 1 tablet by mouth 3 Active allopurinol (ZYLOPRIM) 300 MG tablet Take 300 mg by mouth 1 (one) time each day 5 Active pregabalin (LYRICA) 50 MG capsule Take 50 mg by mouth in the morning and 50 mg in the evening. Active metOLazone 5 MG tablet Take 5 mg by mouth 1 (one) time each day Active amiodarone (PACERONE) 100 MG tablet Take 100 mg by mouth in the morning and 100 mg in the evening. Active colchicine 0.6 MG tablet Take 0.6 mg by mouth in the morning and 0.6 mg in the evening. 5 Active amLODIPine (NORVASC) 2.5 MG tabletIndications :Essential (primary) hypertension Take 1 tablet (2.5 mg total) by mouth 1 (one) time each day 90 tablet 1 5 Active Active Problems Problem Noted Date Diagnosed Date Benign hypertension 04/23/2022 Gouty arthritis of right ankle 04/23/2022 Paroxysmal atrial fibrillation 04/23/2022 Stage 5 chronic kidney disease 04/23/2022 Type 2 diabetes mellitus 04/23/2022 Chronic kidney disease stage 4 09/25/2020 Encounters Date Type Department Care Team Description 12/11/2024 2:00 PM CDT Office Visit [facility], [address] [address] Betina Miner NP Type 2 diabetes mellitus with complication, not otherwise specified (HCC) (Primary Dx); Benign hypertension; Chronic kidney disease stage 4 (HCC); Essential (primary) hypertension; Vitamin D deficiency, not otherwise specified 11/29/2024 Documentation Only [facility] [address] [place] [phone] Arminda Vences MA 11/29/2024 Documentation Only [facility] [address] [place] [phone] Arminda Vences MA 11/01/2024 Refill [facility], [address] [address] Tara Boone NP Essential (primary) hypertension from Last 3 Months Family History Medical History Relation Comments Hypertension Child Cancer Father Gout Father Heart disease Father Hypertension Father Diabetes Maternal Grandfather Heart disease Mother Hypertension Mother Stroke Mother Cancer Sibling Diabetes Sibling Gout Sibling Heart disease Sibling Hypertension Sibling Relation Status Comments Child Father Maternal Grandfather Mother Sibling Social History Tobacco Use Types Packs/Day Years Used Date Smoking Tobacco: Former Cigarettes Q uit: 06/06/2020 Smokeless Tobacco: Never Tobacco Cessation:Counseling Given: Not Answered Alcohol Use Standard Drinks/Week Comments Never 0 (1 standard drink = 0.6 oz pur e alcohol) Comments Unknown Sex and Gender Information Value Date Recorded Sex Assigned at Not on file Legal Sex Female 11:20 AM EST Gender Identity Not on file Sexual Orientation Not on file Last Filed Vital Signs Vital Sign Reading Time Taken Comments Blood Pressure 128/68 12/11/2024 1:52 PM CDT Pulse 72 12/11/2024 1:52 PM CDT Temperature - - Respiratory Rate - - Oxygen Saturation 94% 09/05/2024 2:01 PM CDT Inhaled Oxygen Concentration - - Weight 115 kg (253 lb) 12/11/2024 1:52 PM CDT Height 162.6 cm (5' 4 ) 12/11/2024 1:52 PM CDT Body Mass Index 43.43 12/11/2024 1:52 PM CDT Plan of Treatment Upcoming Encounters Date Type Department Care Team (Late st Contact Info) Description 05/01/2025 10:20 AM FLIGHT COMMUNICATIONS OFFICER Office Visit [facility], [facility] [address] [place] [address] Cathy Villegas MD [facility] [address] Health Maintenance Due Date Last Done Comments Breast Cancer Screening 1955 Pneumococcal Vaccine: 50+ Ye ars (1 of 2 - PCV) 1972 Colorectal Cancer Screening: Annual FOBT 2002 Colorectal Cancer Screening: Colonoscopy 2002 Colorectal Cancer Screening: Sigmoidoscopy 2002 Diabetes: Ophthalmology Exam 01/05/2022 Diabetes: Pedal Pulse Checked 01/05/2022 Diabetes: Sensory Foot Exam 01/05/2022 Diabetes: Visual Foot Exam 01/05/2022 Diabetes: Hemoglobin A1C 08/06/2024 05/08/2024 Hepatitis B Vaccine Aged Out No longe r eligible based on patient's age to complete this topic Procedures Procedure Name Priority Date/Time Associated Diagnosis Comments PROTEIN / CREATININE RATIO, URINE Routine 11/28/2024 Chronic kidney disease stage 4 (HCC) CBC Routine 11/28/2024 Chronic kidney disease stage 4 (HCC) PTH, INTACT Routine 11/28/2024 Chronic kidney disease stage 4 (HCC) RENAL FUNCTION PANEL Routine 11/28/2024 Chronic kidney disease stage 4 (HCC) from Last 3 Months Results * Protein / creatinine ratio, urine (11/28/2024) Creatinine, Urine Random 37 mg/dL PRINT/EXTERNAL (NON-INTERFACE D LABS) Urine Protein/Creatin ine Ratio 0.16 mg/g creat PRINT/EXTERNAL (NON-INTERFACE D LABS) Protein Urine Random 6 PRINT/EXTERNAL (NON-INTERFACE D LABS) Urine Urine specimen obtained by clean catch procedure / Unknown 11/28/2024 Narrative PRINT/EXTERNAL (NON-INTERFACED LABS) - 11/29/2024 [facility] Tara Boone NP LAB URINE ORDERABLES Kathryn starla Result PRINT/EXTERNAL (NON-INTERFACED LABS) * CBC without diff (11/28/2024) WBC 6.05 K/uL PRINT/EXTE RNAL (NON-INTERFACE D LABS) Red Blood Cell Count 4.46 PRINT/EXTERNAL (NON-INTERFACE D LABS) Hemoglobin 13.50 g/dL PRINT/EXT ERNAL (NON-INTERFACE D LABS) Hematocrit 44.1 % PRINT/EXT ERNAL (NON-INTERFACE D LABS) MCV 98.9 PRINT/EXTE RNAL (NON-INTERFACE D LABS) MCH 30.3 PRINT/EXTE RNAL (NON-INTERFACE D LABS) MCHC 30.6 PRINT/EXTE RNAL (NON-INTERFACE D LABS) RDW 17.6 PRINT/EXTE RNAL (NON-INTERFACE D LABS) Platelet Count 316 PRINT /EXTERNAL (NON-INTERFACE D LABS) MPV 10.7 PRINT/EXTE RNAL (NON-INTERFACE D LABS) Absolute Neutrophils 4.47 PRINT/EXTERNAL (NON-INTERFACE D LABS) Absolute Lymphocytes 0.8 PRINT/EXTERNAL (NON-INTERFACE D LABS) Absolute Monocytes 0.5 PRINT/EXTERNAL (NON-INTERFACE D LABS) Absolute Eosinophils 0.2 PRINT/EXTERNAL (NON-INTERFACE D LABS) Absolute Basophils 0.0 PRINT/EXTERNAL (NON-INTERFACE D LABS) Neutrophils 73 K/uL PRINT/EX TERNAL (NON-INTERFACE D LABS) Lymphocytes 8 PRINT/EX TERNAL (NON-INTERFACE D LABS) Monocytes 13.4 PRINT/EXTE RNAL (NON-INTERFACE D LABS) Eosinophils 8.8 PRINT/EX TERNAL (NON-INTERFACE D LABS) Basophils 3.1 PRINT/EXTE RNAL (NON-INTERFACE D LABS) Blood Venous blood / Unknown 11/28/2024 Narrative PRINT/EXTERNAL (NON-INTERFACED LABS) - 11/29/2024 [facility] Tara Boone BRATTICE BUILDER LAB BLOOD ORDERABLES Kathryn l Result Performing Organization Address [facility] Phone Number PRINT/EXTERNAL (NON-INTERFACED LABS) * PTH, intact (11/28/2024) Parathyroid Hormone, Intact 146.6 pg/mL PRINT/FIXED INCOME ANALYST AL (NON-INTERFACE D LABS) Blood 11/28/2024 Tara Boone BRATTICE BUILDER LAB BLOOD ORDERABLES Kathryn l Result Performing Organization Address [facility]/ZIP Co de Phone Number PRINT/EXTERNAL (NON-INTERFACED LABS) * Renal function panel (11/28/2024) Glucose 100 mg/dL PRINT/EXTE RNAL (NON-INTERFACE D LABS) BUN 39 mg/dL PRINT/EXTE RNAL (NON-INTERFACE D LABS) Creatinine 2.6 mg/dL PRINT/EXT ERNAL (NON-INTERFACE D LABS) Sodium 139 mEq/L PRINT/EXTE RNAL (NON-INTERFACE D LABS) Potassium 4.2 mEq/L PRINT/EXTE RNAL (NON-INTERFACE D LABS) Chloride 104 PRINT/EXTE RNAL (NON-INTERFACE D LABS) Carbon Dioxide 21 mmol/L PRINT /EXTERNAL (NON-INTERFACE D LABS) Calcium 9.4 mg/dL PRINT/EXTE RNAL (NON-INTERFACE D LABS) Phosphorus, Serum 3.7 mg/dL PRINT/EXTERNAL (NON-INTERFACE D LABS) Albumin (Blood) 3.8 g/dL PRIN T/EXTERNAL (NON-INTERFACE D LABS) eGFR 30 PRINT/EXTE RNAL (NON-INTERFACE D LABS) Blood 11/28/2024 Narrative PRINT/EXTERNAL (NON-INTERFACED LABS) - 11/29/2024 [facility] Tara Boone BRATTICE BUILDER LAB BLOOD ORDERABLES Kathryn cha Result PRINT/EXTERNAL (NON-INTERFACED LABS) from Last 3 Months Insurance Medicaid [place] ([id number]) [facility] Care Teams Carpet Winder Relationship Specialty Start Date End Date Anna Kaufman MD [address] [place] [id number] PCP - General Family Medicine 01/02/24
--- OUTSIDE RECORDS SUMMARY | 2025-01-26 10:21 | XMS_ITS | Encounter Summary ---
Author Organization [facility] Address [address] [place] [address] Care Team Providers Care Senior Net Software Engineer Name Role Phone Hemal Beth MD Primary Care Provider [phone] Reason for Referral * Outpatient Services (Routine) - Closed Specialty Diagnoses / Procedures Referred By Jimmy leach Referred To Contact Diagnoses Aneurysm of heart (wall) Procedures MRA CHEST W WO CONTRAST Hemal Beth MD Phone: tel: fax: [facility] Pre-Registration [place] CALL TO MAKE APPOINTMENT ONLY [address] [place] [address] Phone: tel: fax: Referral ID Status Reason Start Date Expiration Date V isits Requested Visits Authorized [id number] Closed [facility] TO SCHEDULE (SGF) 07/11/2014 08/11/2015 1 1 Encounter Details Date Type Department Care Team (Latest Contact Info) Description 07/11/2014 Ancillary Orders [facility] Pre-Registration [place] CALL TO MAKE APPOINTMENT ONLY [address] [place] [address] Hemal Beth MD [address] [place] [phone] Aneurysm of heart (wall) (Primary Dx) Social History Tobacco Use Types Packs/Day Years Used Date Smoking Tobacco: Never Assessed Comments Unknown Sex and Gender Information Value Date Recorded Sex Assigned at Not on file Legal Sex Female 4:46 PM CDT Gender Identity Not on file Sexual Orientation Not on file documented as of this encounter Plan of Treatment Scheduled Orders Name Type Priority Associated Diagnoses Orde r Schedule MRA CHEST W WO CONTRAST Imaging Routine Aneurysm of heart (wall) 1 Occurrences starting 07/11/2014 until 07/11/2015 documented as of this encounter Visit Diagnoses Diagnosis Aneurysm of heart (wall)- Primary documented in this encounter Care Teams Senior Net Software Engineer Relationship Specialty Start Date End Date Hemal Beth MD PCP - General Family Practice 07/15/14 documented as of this encounter
--- OUTSIDE RECORDS SUMMARY | 2025-01-26 10:21 | XMS_ITS | Clinical Summary ---
Author Organization [facility] Address [address] [place] [address] Phone Care Team Providers Care Dental Laboratory Worker Name Role Phone Hemal Beth MD Primary Care Provider [phone] Allergies No known active allergies Medications traMADol (ULTRAM) 50 mg tablet Take 100 mg by mouth every 6 hours as needed for Pain. Active lisinopril (PRINIVIL) 20 mg tablet Take 20 mg by mouth daily. Active hydrochlorothiaz venkatesh (HYDRODIURIL) 12.5 mg tablet Take 12.5 mg by mouth daily. Active metFORMIN (GLUCOPHAGE) 500 mg tablet Take 500 mg by mouth 2 times daily with meals. Active aspirin (DEEPTHI CHEWABLE) 81 mg Tablet, Chewable Take 81 mg by mouth daily. Active Social History Tobacco Use Types Packs/Day Years Used Date Smoking Tobacco: Every Day Cigarettes Comments Unknown Sex and Gender Information Value Date Recorded Sex Assigned at Not on file Legal Sex Female 4:46 PM CDT Gender Identity Not on file Sexual Orientation Not on file Last Filed Vital Signs Vital Sign Reading Time Taken Comments Blood Pressure - - Pulse - - Temperature - - Respiratory Rate - - Oxygen Saturation - - Inhaled Oxygen Concentration - - Weight 86.2 kg (190 lb) 07/23/2014 10:40 AM CDT Height 172.7 cm (5' 8 ) 07/23/2014 10:40 AM CDT Body Mass Index 28.89 07/23/2014 10:40 AM CDT Plan of Treatment Health Maintenance Due Date Last Done Comments DTAP/TDAP/TD VACCINES (1 - Tdap) 1972 PNEUMOCOCCAL VACCINE 50+ YEARS (1 of 2 - PCV) 04/07/19 72 BREAST CANCER SCREENING 1993 COLORECTAL SCREENING 1998 Colorectal Cancer Screening 1998 FIT-DNA Q 3 years 1998 FIT/FOBT Q 1 year 1998 Flex Sig/CT Colonography Q 5 years 1998 ZOSTER VACCINE (1 of 2) 2003 OSTEOPOROSIS SCREENING 2018 INFLUENZA VACCINE (#1) 2024 RSV VACCINE (60+ or ) (1 - 1-dose 75+ series) [address] [place] [address] [id number] MEDICARE PART A AND B MEDICAID [place] Care Teams Dental Laboratory Worker Relationship Specialty Start Date End Date Hemal Beth MD PCP - General Family Practice 07/15/14
--- OUTSIDE RECORDS SUMMARY | 2025-01-26 10:21 | XMS_ITS | Encounter Summary ---
Author Organization [facility], [facility] Address [address] [address] Phone Care Team Providers Care Trading Analyst Name Role Phone Anna Kaufman MD Primary Care Provider Reason for Visit * Reason Comments Med Refill Encounter Details Date Type Department Care Team (Late st Contact Info) Description 11/25/2022 Refill [facility], [address] [address] Traa Boone NP [address] [address] Essential (primary) hypertension Social History Tobacco Use Types Packs/Day Years Used Date Smoking Tobacco: Former Cigarettes Q uit: 06/06/2020 Smokeless Tobacco: Never Alcohol Use Standard Drinks/Week Comments Never 0 (1 standard drink = 0.6 oz pur e alcohol) Comments Unknown Sex and Gender Information Value Date Recorded Sex Assigned at Not on file Legal Sex Female 11:20 AM EST Gender Identity Not on file Sexual Orientation Not on file documented as of this encounter Plan of Treatment Upcoming Encounters Date Type Department Care Team (Late st Contact Info) Description 05/01/2025 10:20 AM ASSEMBLY LEADER Office Visit [facility], [facility] [address] [place] [address] Cathy Villegas MD [address] [address] documented as of this encounter Visit Diagnoses Diagnosis Essential (primary) hypertension documented in this encounter Care Teams Trading Analyst Relationship Specialty Start Date End Date Anna Kaufman MD [address] [place] [address] PCP - General Family Medicine 01/02/24 documented as of this encounter
--- OUTSIDE RECORDS SUMMARY | 2025-01-26 10:21 | XMS_ITS | Encounter Summary ---
Author Organization [employer] Address [address] [place] [address] Care Team Providers Care Director For Beauty School Name Role Phone Anna Kaufman MD Primary Care Provider [phone] Encounter Details Date Type Department Care Team (Late st Contact Info) Description 01/22/2025 External Device Data [facility] ABSTRACTION Provider, Abstract NO ADDRESS ON FILE Social History Tobacco Use Types Packs/Day Years Used Date Smoking Tobacco: Former Cigarettes Smokeless Tobacco: Never Alcohol Use Standard Drinks/Week Comments Never 0 (1 standard drink = 0.6 oz pur e alcohol) Feeling Safe Answer Date Recorded Are you in a relationship wi th someone who hurts you emotionally and/or physically? 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
--- OUTSIDE RECORDS SUMMARY | 2025-01-26 10:21 | XMS_ITS | Clinical Summary ---
Author Organization [facility] Address [address] [facility] Attn: Epic Prelude ADT [place] [address] Care Team Providers Care Wafer Fabrication Technician Name Role Phone Anna Kaufman MD Primary Care Provider [phone] Allergies Active Allergy Reactions Criticality Noted Date Comments Aspirin Nausea and Vomiting Low 09/23/2020 Influenza A (H1n1) Virus Vac cine Monovalent 2009 Nausea and Vomiting Low 09/23/2020 Medications Pacerone 100 mg Tablet Take 100 mg by mouth 2 times daily. 3 Active albuterol sulfate HFA 90 mcg/actuation aerosol inhaler Take 2 Puffs by inhalation 4 times daily as needed. 3 Active amLODIPine (NORVASC) 2.5 mg tablet Take 2.5 mg by mouth daily. 3 Active furosemide (LASIX) 40 mg tablet Take 40 mg by mouth. 40 mg daily and every other day is two times a day 2 Active cholecalciferol , vitamin D3, 5,000 unit Take 1 Tablet by mouth daily. Active HYDROcodone-negro taminophen (NORCO) 7.5-325 mg Tablet Take 1 Tablet by mouth every 12 hours. 2 Active levothyroxine 100 mcg tablet Take 100 mcg by mouth daily. 2 Active metoprolol tartrate (LOPRESSOR) 25 mg tablet Take 0.5 Tablets by mouth 2 times daily. 2 Active Xarelto 20 mg Tablet Take 1 Tablet by mouth daily. 2 Active spironolactone (ALDACTONE) 25 mg tablet Take 1 Tablet by mouth daily. 2 Active HYDROcodone-negro taminophen (NORCO) 5-325 mg tabletIndicatio ns:Cellulitis of right foot Take 1 Tablet by mouth every 4 hours as needed for Pain, Moderate. Max Daily Amount: 6 Tablets 10 Tablet 04/27/2022 5:58 PM TICKETING CLERK 3 Active cephALEXin (KEFLEX) 500 mg capsule Take 500 mg by mouth 4 times daily. Active HYDROcodone-negro taminophen (NORCO) 5-325 mg tabletIndicatio ns:Diabetic foot infection Take 1-2 Tablets by mouth every 6 hours as needed for Pain. 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 04/23/2022 Benign hypertension 04/23/2022 Type 2 diabetes mellitus wit h circulatory disorder, without long-term current use of insulin 04/23/2022 Paroxysmal atrial fibrillation 04/23/2022 Acute gout of right ankle 04/23/2022 Encounters Date Type Department Care Team Description 01/22/2025 External Device Data [facility] ABSTRACTION Provider, Abstract 01/22/2025 External Device Data [facility] ABSTRACTION Provider, Abstract 12/12/2024 External Device Data [facility] ABSTRACTION Provider, Abstract 12/04/2024 External Device Data [facility] ABSTRACTION Provider, Abstract 11/14/2024 External Device Data [facility] ABSTRACTION Provider, Abstract from Last 3 Months Social History Tobacco Use Types Packs/Day Years Used Date Smoking Tobacco: Former Cigarettes Smokeless Tobacco: Never Tobacco Cessation:Counseling Given: Not [...] on file Legal Sex Female 6:03 AM TICKETING CLERK Gender Identity Not on file Sexual Orientation Not on file Last Filed Vital Signs Vital Sign Reading Time Taken Comments Blood Pressure 98/65 02/02/2024 3:30 PM CDT Pulse 71 02/02/2024 3:30 PM CDT Temperature 36.4 C (97.6 F) 02/02/2024 10:28 AM CDT Respiratory Rate 16 02/02/2024 3:30 PM CDT Oxygen Saturation 95% 02/02/2024 3:30 PM CDT Inhaled Oxygen Concentration - - Weight 125.3 kg (276 lb 4.8 oz) 024 10:28 AM CDT Height 177.8 cm (5' 10 ) 02/02/2024 10: 28 AM CDT Body Mass Index 39.64 02/02/2024 10:28 AM CDT Plan of Treatment Health Maintenance Due Date Last Done Comments DIABETES ANNUAL FOOT EXAM 1971 DIABETES ANNUAL RETINAL EXAM 1971 DIABETES MICROALBUMIN ANNUAL SCREEN 1971 LDL CHOLESTEROL ANNUAL 1971 DTAP/TDAP/TD VACCINES (1 - Tdap) 1972 PNEUMOCOCCAL VACCINE 50+ YEARS (1 of 2 - PCV) 04/07/19 72 BREAST CANCER SCREENING 1993 COLORECTAL SCREENING 1998 Colorectal Cancer Screening 1998 FIT-DNA Q 3 years 1998 FIT/FOBT Q 1 year 1998 Flex Sig/CT Colonography Q 5 years 1998 ZOSTER VACCINE (1 of 2) 2003 RSV VACCINE (60+ or ) (1 - Risk 60-74 years 1-dose series) 2013 OSTEOPOROSIS SCREENING 2018 DIABETES HBA1C Q 6 MONTHS 11/05/2024 05/08/2024 INFLUENZA VACCINE (#1) 2024 Insurance MEDICAID [place] MED[place] HMO RX [facility] Medicare Part D RX [employer] Medicaid Advance Directives For more information, please contact: [phone] * Full Code (Latest Code Status on File) Date Activated Date Inactivated Comments 04/23/2022 12:20 PM 04/27/2022 8:19 PM Care Teams Wafer Fabrication Technician Relationship Specialty Start Date End Date Anna Kaufman MD [address] [address] PCP - General Family Practice 04/23/22
--- OUTSIDE RECORDS SUMMARY | 2025-01-26 10:21 | XMS_ITS | Encounter Summary ---
Author Organization [facility], [facility] Address [address] [facility] [address] [place] [address] Phone Care Team Providers Care Precision Farming Coordinator Name Role Phone Anna Kaufman MD Primary Care Provider [phone] Encounter Details Date Type Department Care Team (Late st Contact Info) Description 06/12/2020 Orders Only [facility] [address] [address] Acute injury of kidney (HCC) Social History Tobacco Use Types Packs/Day Years [...] st Contact Info) Description 05/01/2025 10:[address]OR Office Visit [facility], [facility] [address] [place] [address] Cathy Villegas MD [address] [facility] [address] [place] [address] documented as of this encounter Visit Diagnoses Diagnosis Acute injury of kidney documented in this encounter Care Teams Precision Farming Coordinator Relationship Specialty Start Date End Date Anna Kaufman MD [address] [place] [address] PCP - General Family Medicine 01/02/24 documented as of this encounter
--- OUTSIDE RECORDS SUMMARY | 2025-01-26 10:21 | XMS_ITS | Encounter Summary ---
Author Organization [facility] Address [address] [place] [address] Care Team Providers Care Signal Worker Name Role Phone Anna Kaufman MD Primary Care Provider Encounter Details Date Type Department Care Team [...] on file Legal Sex Female 6:03 AM VOIP NETWORK ENGINEER Gender Identity Not on file Sexual Orientation Not on file documented as of this encounter Plan of Treatment Not on file documented as of this encounter Visit Diagnoses Not on filedocumented in this encounter Care Teams Signal Worker Relationship Specialty Start Date End Date Anna Kaufman MD [address] [facility] [address] [place] [phone] PCP - General Family Practice 04/23/22 documented as of this encounter
--- NOTE | 2025-01-26 10:31 | XRR_ITS ---
PROCEDURE INFORMATION: Exam: XR Right Shoulder Exam date and time: 01/26/2025 11:00 AM Age: 69 years old Clinical indication: Pain; Shoulder; Right TECHNIQUE: Imaging protocol: Radiologic exam of the right shoulder. Views: 2 or more views. COMPARISON: CR XR chest 2V* [id number] 03/16/2022 2:03 PM FINDINGS: Bones/joints: Mild degenerative change of the AC joint. No fractures are identified. No dislocation. Lungs: There is prominence of the interstitium which may represent some edema. Soft tissues: Normal. XR/XR shoulder RT min 2V* [id number] IMPRESSION: Mild degenerative change. Prominence of the interstitium of the lungs.
[2025-01-26 10:32] VITALS: BP 105/60; PULSE 64; RESP 17; TEMP 36.7; O2SAT 96
[2025-01-26 11:03] VITALS: BP 102/54; PULSE 69; O2SAT 96
--- NOTE | 2025-01-26 11:15 | ED_ITS ---
HPI - Extremity Problem General: Chief complaint: Extremity Injury, Upper Stated complaint: R Shoulder Painful Time Seen by Provider: 01/26/25 10:58 History of Present Illness: 69-year-old female who presents emergenc y room with right shoulder pain. She says she was reaching to put up some groceries and felt a pop in her shoulder and has had pain there since. She has difficulty moving it. No obvious deformities. Related Data Home Medications ?Medication ?Instructions ?Recorded ?Confirmed diclofenac sodium 1 % topical gel 4 g topical QID PRN Pain 05/05/24 01/14/25 (Voltaren Arthritis Pain) Previous Rx's ?Medication ?Instructions ?Recorded cholecalciferol (vitamin D3) 125 5,000 unit PO DAILY # 30 tabs 06/11/20 mcg (5,000 unit) tablet DME: Walker #1 ea 08/30/22 TUNTUTULIAK boot #1 ea 11/17/22 blood sugar diagnostic (Accutrend #50 ea 04/27/23 Glucose test strips) amlodipine 2.5 mg tablet 2.5 mg PO DAILY #90 tabs cam walker #1 ea 11/09/23 Diabetic Shoes with 3 inserts #1 ea 04/24/24 pregabalin 50 mg capsule 50 mg PO BID feet pain #60 c aps 04/30/24 metolazone 5 mg tablet 5 mg PO DAILY PRN swelling # 30 tabs 05/28/24 albuterol sulfate 90 mcg/actuation 2 puff inhalation Q 4H PRN 06/22/24 aerosol inhaler Shortness Of Breath #8.5 gra ms allopurinol 300 mg tablet 300 mg PO BID #180 tabs 04/0 12/03 colchicine 0.6 mg tablet 0.6 mg PO BID for flare ups of 09/23/24 gout #30 tabs furosemide 40 mg tablet 40 mg PO QAM #90 tabs rivaroxaban 20 mg tablet (Xarelto) 20 mg PO .8AM #90 t abs 11/01/24 amiodarone 100 mg tablet (Pacerone) 100 mg PO BID #180 tabs 11/30/24 levothyroxine 125 mcg capsule 125 mcg PO DAILY #90 cap s 12/31/24 metoprolol tartrate 25 mg tablet See Rx Instructions . Route 01/01/25 .COMPLEX #90 tabs hydrocodone 7.5 mg-acetaminophen 1 tab PO Q12H PRN romi n 30 days #60 01/08/25 325 mg tablet tabs spironolactone 25 mg tablet See Rx Instructions .Route 01/08/25 .COMPLEX #90 tabs Allergies Allergy/AdvReac Type Severity Reaction Status Date / Time aspirin Allergy nausea Verified 12/24/24 09:45 influenza A (H1N1) virus Allergy unknown Verified 12/24/24 09:45 vaccine [id number] 2008 (From influenza A (H1N1)) Review of Systems Narrative: Constitutional symptoms: Negative except as documented in HPI. Skin symptoms: Negative except as documented in HPI. Eye symptoms: Negative except as documented in HPI. ENMT symptoms: Negative except as documented in HPI. Respiratory symptoms: Negative except as documented in HPI. Cardiovascular symptoms: Negative except as documented in HPI. Gastrointestinal symptoms: Negative except as documented in HPI. Genitourinary symptoms: Negative except as documented in HPI. Musculoskeletal symptoms: Negative except as documented in HPI. Neurologic symptoms: Negative except as documented in HPI. Psychiatric symptoms: Negative except as documented in HPI. Endocrine symptoms: Negative except as documented in HPI. PFSH ED PFSH: Medical History (Updated 01/26/25 @ 11:19 by Mesha Hicks MD) Metatarsalgia of both feet Venous insufficiency of both lower extremities Skin tag, acquired Lumbar disc disease with radiculopathy Nicotine abuse Hypothyroid CHF (congestive heart failure) Pt is wanting to wait for the Stress test till the VIrus is gone! Mixed hyperlipidemia Atrial fibrillation GERD (gastroesophageal reflux disease) Diabetes 1.5, managed as type 2 Hypercholesteremia Type 2 diabetes mellitus with diabetic polyneuropathy Hypertension Surgical History Hx laparoscopic cholecystectomy Hx of appendectomy Hx of tubal ligation Hx of cholecystectomy Family History Denies family history of Diabetes CAD (coronary artery disease) Clotting disorder Dementia Hyperlipidemia Psychiatric illness Chronic kidney disease (CKD) Suicide Anesthesia complication Bleeding disorder Family history of premature coronary artery disease Lung disease Cancer Hypertension Stroke Social History Smoking and tobacco/nicotine status: former use of tobacco/nicotine Alcohol intake: never Substance/Drug Use: never Physical Exam Narrative: EXAM NARRATIVE: General: Alert, no acute distress. Skin: warm and dry Head: Normocephalic Neck: Trachea midline Eye: Extraocular movements are intact. Ears, nose, mouth and throat: Oral mucosa moist Respiratory: Respirations are non-labored Musculoskeletal: Limitation in range of motion of the right shoulder secondary to pain. No deformity. No redness. Gastrointestinal: Abdomen does not appear distended Neurological: Alert and oriented, No focal neurological deficit observed. Psychiatric: Cooperative, appropriate mood & affect. Course Vital Signs: Vital signs: Vital Signs Temperature 98.1 F 01/26/25 10:32 Pulse Rate 64 01/26/25 12:05 Respiratory Rate 17 01/26/25 10:32 Blood Pressure 101/62 01/26/25 12:05 Pulse Oximetry 96 01/26/25 12:05 Oxygen Delivery Me thod Room Air 01/26/25 11:03 MDM - Extremity (Nontraumatic) Medical Decision Making Medical decision making: Differential diagnosis including but not limited to and based on the above HPI, review of systems and physical exam: In this patient with a musculoskeletal extremity traumatic injury and x-ray is being ordered to rule out fractures and dislocations. Orders placed to evaluate differential diagnosis based on the above differential, HPI and physical exam X-ray of the right shoulder: I see no fractures or dislocations. Films were interpreted by myself the emergency room provider and pending final radiology review. I reviewed the patient's medical record. Patient has a history of venous insufficiency, lumbar disease, chronic pain syndrome on hydrocodone, congestive heart failure, hyperlipidemia, atrial fibrillation, diabetes and hypertension Reexamination: Patient remained stable. No increased work of breathing. No altered mental status. No focal motor deficits. Assessment and plan: Rotator cuff injury ?Follow-up with Ortho. 1 oxy. She has [facility] at home. - Discharged home - Discussed plan with patient. Answered any questions. - Evaluation and treatment of this problem were appropriate in the emergency setting. XR interpretation done by ED provider, pending radiology final review Discharge Plan Discharge Patient Disposition: Home Clinical Impression: Injury of right rotator cuff Condition: Stable Prescriptions: No Action amlodipine 2.5 mg tablet 2.5 mg PO DAILY Qty: 90 0RF (DME) cam walker See Rx Instructions .Route .MEDSUPPLY Qty: 1 0RF Rx Instructions: As directed (DME) Diabetic Shoes with 3 inserts See Rx Instructions .ROUTE .MEDSUPPLY Qty: 1 0RF Rx Instructions: As directed, HOME metolazone 5 mg tablet 5 mg PO DAILY PRN (Reason: swelling) Qty: 30 1RF Rx Instructions: as directed (DME) DME: Walker Unit See Rx Instructions .Route Qty: 1 0RF Rx Instructions: with wheels and a seat (DME) TUNTUTULIAK boot See Rx Instructions .Route .MEDSUPPLY Qty: 1 0RF Rx Instructions: As directed pregabalin 50 mg capsule 50 mg PO BID Qty: 60 3RF (DME) Accutrend Glucose test strips Strip See Rx Instructions .Route Qty: 50 6RF Rx Instructions: As directed. Type 2 diabetes: once daily testing albuterol sulfate 90 mcg/actuation HFA aerosol inhaler 2 puff inhalation Q4H PRN (Reason: Shortness Of Breath) Qty: 8.5 8RF Dose Instruction: INHALE 2 PUFFS BY MOUTH 4 TIMES DAILY allopurinol 300 mg tablet 300 mg PO BID Qty: 180 1RF colchicine 0.6 mg tablet 0.6 mg PO BID Qty: 30 1RF furosemide 40 mg tablet 40 mg PO QAM Qty: 90 3RF Xarelto 20 mg tablet 20 mg PO .8AM Qty: 90 3RF Pacerone 100 mg tablet 100 mg PO BID Qty: 180 2RF levothyroxine 125 mcg capsule 125 mcg PO DAILY Qty: 90 0RF metoprolol tartrate 25 mg tablet See Rx Instructions .ROUTE .COMPLEX Qty: 90 2RF Dose Instruction: TAKE ONE-HALF TABLET BY MOUTH TWICE DAILY Rx Instructions: TAKE ONE-HALF TABLET BY MOUTH TWICE DAILY spironolactone 25 mg tablet See Rx Instructions .ROUTE .COMPLEX Qty: 90 1RF Dose Instruction: TAKE 1 TABLET BY MOUTH ONCE DAILY FOR SWELLING Rx Instructions: TAKE 1 TABLET BY MOUTH ONCE DAILY FOR SWELLING hydrocodone-acetaminophen 7.5-325 mg tablet 1 tab PO Q12H PRN (Reason: pain) 30 Days Qty: 60 0RF cholecalciferol (vitamin D3) 125 mcg (5,000 unit) Tablet 5,000 unit PO DAILY Qty: 30 0RF diclofenac sodium [Voltaren Arthritis Pain] 1 % gel 4 g topical QID PRN (Reason: Pain) Rx Instructions: apply to single knee, ankle, foot; for foot includes sole/toes/top of foot Discharge Orders: Discharge ED (Routine); Ordered 01/26/25 Ordered By: Mesha Hicks Referrals: Anna Kaufman MD [Primary Care Provider, Family Practice] Eleazar Tapia MD [Physician, Orthopedics] - 4-7 days Referral Note: Please call for a follow-up appointment if someone does not contact you. Discharge Diet: Usual diet Discharge Activity: Increase activity as tolerated Patient Instructions: Rotator Cuff Injury (ED), Opioid Safety, Pain Management, Patient Portal & [facility]ata Instructions Activity Restrictions/Additional Instructions: Thank you for choosing [facility] for your healthcare needs today. You have been screened and evaluated and felt safe for discharge. Health conditions do change or evolve sometimes and as such it is important that you follow up with your Primary Doctor to be re checked, 3-5 days is a general good time frame for follow up. You are always welcome to return to the ED for re assessment if your symptoms are worsening or you have new concerns Print Language: Sierra Leonean Coding Level of Care Code ED Gis Administrator for Irving Rosario
[2025-01-26] MEDS: oxyCODONE 5 mg IR Tab/Cap PO (11:53)
[2025-01-26 12:05] VITALS: BP 101/62; PULSE 64; O2SAT 96
--- NOTE | 2025-01-28 08:27 | DCPLANNER ---
messaged ortho for er f/u
== END 2025-01-26 12:06 | disposition home or self-care (01) ==
PROVIDERS: Emergency Provider Emergency Medicine; PCP Family Medicine
DX: S46.001A Unspecified injury of muscle(s) and tendon(s) of the rotator cuff of right shoulder, initial encounter (principal); Z87.891 Personal history of nicotine dependence; E11.42 Type 2 diabetes mellitus with diabetic polyneuropathy; E78.2 Mixed hyperlipidemia; I11.0 Hypertensive heart disease with heart failure; I50.9 Heart failure, unspecified; X58.XXXA Exposure to other specified factors, initial encounter
CPT/HCPCS: 73030; 96372; 99284; J1100; J9999

== ENCOUNTER → 2025-02-05 13:08 | Outpatient (BNVA) | payer MEDICARE, MEDICAID, SELFPAY | PROVIDERS: PCP Family Medicine; Visit Provider Podiatrist Foot & Ankle Surgery | DX: E11.42 Type 2 diabetes mellitus with diabetic polyneuropathy (principal); L60.3 Nail dystrophy; E11.8 Type 2 diabetes mellitus with unspecified complications; I73.9 Peripheral vascular disease, unspecified; L30.9 Dermatitis, unspecified | CPT/HCPCS: 11721; 99213 ==

== ENCOUNTER → 2025-02-13 11:56 | Outpatient (BNVA) | payer MEDICARE, MEDICAID, SELFPAY | PROVIDERS: PCP Family Medicine; Visit Provider Family Medicine | DX: N17.9 Acute kidney failure, unspecified (principal); N18.31 Chronic kidney disease, stage 3a | CPT/HCPCS: 80048 ==

== ENCOUNTER → 2025-04-08 13:42 | Outpatient (BNVA) | payer MEDICARE, MEDICAID, SELFPAY | PROVIDERS: PCP Family Medicine; Visit Provider Podiatrist Foot & Ankle Surgery | DX: E11.42 Type 2 diabetes mellitus with diabetic polyneuropathy (principal); L60.3 Nail dystrophy; I73.9 Peripheral vascular disease, unspecified; L30.9 Dermatitis, unspecified | CPT/HCPCS: 11721 ==